=== PATIENT | female | born 1945 | race Two or more races ===

== ENCOUNTER 2019-12-18 19:20 | Inpatient (IN) | payer MEDICAID, MEDICARE ==
[~2019-12-18] VITALS: Ht 154.9 cm; Wt 70.7 kg
[2019-12-18] MEDS ORDERED: LEVEMIR (INSULIN DETEMIR) 1 UNITS/0.01ML SC SCH (21:00)
[2019-12-18] MEDS ORDERED: ACETAMINOPHEN TAB 650MG DOSE (2X325MG) PO PRN (22:00)
[2019-12-18 23:30] VITALS: BP 150/92
[2019-12-19] MEDS ORDERED: LEVE1INJ5 SUBQ (00:10)
[2019-12-19] MEDS ORDERED: METO1TAB87 PO (00:11)
[2019-12-19] MEDS ORDERED: ECOT81TA5 PO (00:11)
[2019-12-19] MEDS ORDERED: CYCL-707 PO (00:11)
[2019-12-19] MEDS ORDERED: VITA50005 PO (00:11)
[2019-12-19] MEDS ORDERED: LORA-622 PO (00:11)
[2019-12-19] MEDS ORDERED: PANT40TA29 PO (00:11)
[2019-12-19] MEDS ORDERED: NOVOINJ3 SUBQ (00:11)
[2019-12-19] MEDS ORDERED: MIRA3350 PO (00:11)
[2019-12-19] MEDS ORDERED: ACET-908 PO (00:11)
[2019-12-19] MEDS ORDERED: FURO20TA2 PO (00:11)
[2019-12-19] MEDS ORDERED: SULF1TAB93 PO (00:11)
[2019-12-19] MEDS ORDERED: ATOR40TA75 PO (00:11)
[2019-12-19] MEDS ORDERED: AMLO1TAB24 PO (00:11)
[2019-12-19 00:12] LABS: HEMATOCRIT 27.3 % (36.0-47.0); HEMOGLOBIN 8.7 g/dl (12.0-15.5); MEAN CORPUSCULAR HEMOGLOBIN 30.3 pg (27.0-33.0); MEAN CORPUSCULAR HGB CONC 31.9 g/dl (32.0-36.5); MEAN CORPUSCULAR VOLUME 95.1 fl (80.0-96.0); PLATELET COUNT, AUTOMATED 231 10^3/uL (150-450); RED BLOOD COUNT 2.87 10^6/uL (4.00-5.40); WHITE BLOOD COUNT 6.4 10^3/uL (4.0-10.0)
[2019-12-19] MEDS ORDERED: med rec comment (00:12)
[2019-12-19 00:21] LABS: OSMOLALITY SERUM 304 MOSM/KG (280-301)
[2019-12-19 00:48] LABS: ALBUMIN 3.1 GM/DL (3.2-5.2); ALT/SGPT 22 U/L (12-78); BILIRUBIN,TOTAL 0.3 MG/DL (0.2-1.0); BLOOD UREA NITROGEN 43 MG/DL (7-18); CALCIUM LEVEL 8.9 MG/DL (8.8-10.2); CARBON DIOXIDE LEVEL 22 MEQ/L (21-32); CHLORIDE LEVEL 108 MEQ/L (98-107); CK-MB VALUE MASS 2.3 NG/ML (<3.6); CPK CREATINE PHOSPHOKINASE 145 U/L (26-192); CREATININE FOR GFR 4.86 MG/DL (0.55-1.30); GLOMERULAR FILTRATION RATE 9.3 (>39); GLUCOSE, FASTING 178 MG/DL (70-100); MB/CK RELATIVE INDEX 1.59 (< OR =4); POTASSIUM SERUM 6.3 MEQ/L (3.5-5.1); SODIUM LEVEL 135 MEQ/L (136-145); TOTAL PROTEIN 7.9 GM/DL (6.4-8.2); TROPONIN I < 0.02 NG/ML (< 0.10)
[2019-12-19] MEDS ORDERED: CYCLOBENZAPRINE 10MG TABLET PO PRN (01:30)
[2019-12-19] MEDS ORDERED: NS 1,000 ML IV SCH (01:30)
[2019-12-19] MEDS ORDERED: GLUCAGON INJ 1MG VIAL SC PRN (02:00)
[2019-12-19] MEDS ORDERED: GLUCOSE 4GM CHEW TABLET PO PRN (02:00)
[2019-12-19] MEDS ORDERED: DEXTROSE 50% 50 ML SYRINGE IV PRN (02:00)
[2019-12-19] MEDS: METOPROLOL TART 25 MG TABLET PO SCH ×3 (02:25→22:13)
[2019-12-19] MEDS ORDERED: PATIROMER SORBITEX CALCIUM 8.4 GM POWDER PACKET (VELTASSA) PO ONE (02:45)
[2019-12-19 04:00] VITALS: BP 170/94
--- NOTE | 2019-12-19 04:45 | REPVR ---
PROCEDURE INFORMATION: Exam: CT Head Without Contrast Exam date and time: 12/19/2019 4:09 AM Age: 74 years old Clinical indication: Pain; Headache; Additional info: Freq. Falls TECHNIQUE: Imaging protocol: Computed tomography of the head without contrast. Radiation optimization: All CT scans at this facility use at least one of these dose optimization techniques: automated exposure control; mA and/or kV adjustment per patient size (includes targeted exams where dose is matched to clinical indication); or iterative reconstruction. COMPARISON: No relevant prior studies available. FINDINGS: Brain: Normal. No hemorrhage. Unremarkable white matter. No mass effect. Ventricles: Normal. No ventriculomegaly. Bones/joints: Unremarkable. No acute fracture. Sinuses: Visualized sinuses are unremarkable. No fluid levels. Mastoid air cells: Visualized mastoid air cells are well aerated. Soft tissues: Unremarkable. IMPRESSION: No acute intracranial abnormality. Electronically signed by: Fred Menard On 12/19/2019 04:44:41 AM
--- NOTE | 2019-12-19 04:45 | REPVR ---
PROCEDURE INFORMATION: Exam: CT Neck Without Contrast Exam date and time: 12/19/2019 4:09 AM Age: 74 years old Clinical indication: Neck pain; Additional info: Freq falls, pain left side of neck TECHNIQUE: Imaging protocol: Computed tomography images of the neck without contrast. Radiation optimization: All CT scans at this facility use at least one of these dose optimization techniques: automated exposure control; mA and/or kV adjustment per patient size (includes targeted exams where dose is matched to clinical indication); or iterative reconstruction. COMPARISON: No relevant prior studies available. FINDINGS: Limitations: Study is limited by the absence of contrast. Nasopharynx: Unremarkable. Dental: Dental caries and periodontal disease. Oropharynx: Unremarkable. No significant tonsillar enlargement. Hypopharynx: Unremarkable. Larynx: Unremarkable. Normal epiglottis. Retropharyngeal space: Unremarkable. Submandibular/Parotid glands: Normal. Glands are normal in size. Thyroid: Multiple hypodense thyroid nodules measuring up to 9 mm, follow-up is not necessary. Lymph nodes: Unremarkable. No lymphadenopathy. Trachea: Visualized trachea is unremarkable. Lungs: Unremarkable as visualized. Bones/joints: Straightening of the normal cervical lordotic curvature. Normal vertebral body heights and alignments. No fractures. Diffuse degenerative disc space loss with degenerative disc osteophyte complexes, facet arthropathy, and ligamentum flavum thickening causes up to mild to moderate spinal and foraminal stenosis, greatest at C4-C7. Soft tissues: Unremarkable. No significant soft tissue swelling. IMPRESSION: 1. No acute fracture/subluxation. No masses or adenopathy. 2. Multiple hypodense thyroid nodules measuring up to 9 mm, follow-up is not necessary. 3. Dental caries and periodontal disease. Recommend dental follow-up COMMENTS: Consistent with the [employer]'s Incidental Findings Committee white paper (J Am Jean Paul Radiol 2015): In patients aged 35 years and older with an incidental thyroid nodule equal to or greater than 1.[address], MRI or extrathyroidal US, further evaluation with dedicated thyroid US is recommended for patients with normal life expectancy and without comorbidities. For smaller nodules without suspicious features, no further evaluation or follow up is recommended. Electronically signed by: Fred Menard On 12/19/2019 04:44:22 AM
[2019-12-19 05:49] LABS: BASO % 0.6 % (0.0-1.0); EOS # 0.2 10^3/uL (0.0-0.5); EOS % 3.8 % (0.0-3.0); HEMATOCRIT 26.2 % (36.0-47.0); HEMOGLOBIN 8.4 g/dl (12.0-15.5); LYMPH # 1.6 10^3/uL (1.5-5.0); LYMPH % 25.9 % (24.0-44.0); MEAN CORPUSCULAR HEMOGLOBIN 30.4 pg (27.0-33.0); MEAN CORPUSCULAR HGB CONC 32.1 g/dl (32.0-36.5); MEAN CORPUSCULAR VOLUME 94.9 fl (80.0-96.0); MONO # 0.5 10^3/uL (0.0-0.8); MONO % 7.8 % (0.0-5.0); NEUTROPHILS # 3.9 10^3/uL (1.5-8.5); NEUTROPHILS % 61.6 % (36.0-66.0); PLATELET COUNT, AUTOMATED 229 10^3/uL (150-450); RED BLOOD COUNT 2.76 10^6/uL (4.00-5.40); WHITE BLOOD COUNT 6.3 10^3/uL (4.0-10.0)
[2019-12-19 06:07] LABS: CALCIUM LEVEL 8.8 MG/DL (8.8-10.2); CREATININE FOR GFR 4.75 MG/DL (0.55-1.30); GLOMERULAR FILTRATION RATE 9.5 (>39); MAGNESIUM LEVEL 1.7 MG/DL (1.8-2.4); POTASSIUM SERUM 6.3 MEQ/L (3.5-5.1)
--- NOTE | 2019-12-19 06:42 | REPVR ---
PROCEDURE INFORMATION: Exam: US Soft Tissue Head and Neck, Thyroid Exam date and time: 12/19/2019 6:23 AM Age: 74 years old Clinical indication: Abnormal findings; Abnormal radiologic study of neck; Additional info: Thyroid nodules TECHNIQUE: Imaging protocol: Real-time ultrasound scan of the neck with image documentation. Exam focused on the thyroid. COMPARISON: CT Neck without contrast 2019-12-19 04:05 FINDINGS: Right thyroid lobe: Enlarged 5.2 x 2.2 x 2.1 cm right thyroid lobe. Cystic areas in the right superior thyroid lobe, smaller measures 1 cm, and larger 1.3 cm. Left thyroid lobe: Multiple complex hypoechoic and cystic areas within the bilateral thyroid lobes. 4.3 x 2.2 x 2.8 cm mildly enlarged left thyroid lobe. Complex cystic 1 cm left superior thyroid nodule. Hypoechoic 2 cm left inferior thyroid lobe nodule. Small echogenic calcifications in the left inferior thyroid lobe. Isthmus: Complex cystic thyroid isthmus nodule measuring 1.9 cm. Thyroid isthmus is 17 mm thick. IMPRESSION: Multi nodular thyroid gland with multiple probably benign, likely colloid cysts. However a hypoechoic, partially solid appearing left inferior thyroid lobe nodule is noted, consider FNA guided biopsy, or correlate with priors . Electronically signed by: Fred Menard On 12/19/2019 06:41:20 AM
[2019-12-19 08:00] VITALS: BP 170/76
--- NOTE | 2019-12-19 08:29 | REP ---
Clinical: Hyperkaliemia . Comparison: None . Findings: The mediastinum and cardiac silhouette are stable and within normal limits for portable technique. The lung rosa are clear without acute consolidation, effusion, or pneumothorax. Skeletal structures are intact. Impression: No acute cardiopulmonary process appreciated. Electronically Signed by Harish Luis MD 12/19/2019 08:20 A
--- NOTE | 2019-12-19 09:04 | REP ---
Clinical: Left-sided neck pain. Technique: AP, lateral, flexion/extension, bilateral oblique, swimmers and open mouth views of the cervical spine. Findings: Alignment and lordosis is maintained. There is no evidence for acute fracture / compression injury or subluxation. No significant degenerative changes are appreciated. Oblique views demonstrate patent neural foramen. Open mouth view demonstrates normal C1-C2 articulation and odontoid process. Lateral and oblique views best demonstrate a curvilinear calcifications in the soft tissues superficial to the C3-4 spinous processes consistent with chronic calcification possibly related to old injury. Impression: Essentially, normal cervical spine series. Electronically Signed by Harish Luis MD 12/19/2019 08:56 A
[2019-12-19] MEDS: LORATADINE 10 MG TAB PO SCH (09:15)
[2019-12-19] MEDS: HEPARIN SOD (PORCINE) 5000UNITS/ML 1ML VIAL/SYRINGE SQ SCH ×2 (09:15→22:12)
[2019-12-19] MEDS: ASPIRIN 81 MG ENTERIC TAB PO SCH (09:16)
[2019-12-19] MEDS: PANTOPRAZOLE 40MG TAB (PROTONIX) PO SCH (09:16)
[2019-12-19] MEDS: ATORVASTATIN 20 MG TAB PO SCH (09:16)
[2019-12-19] MEDS: amLODIPine 5 MG TAB PO SCH (09:16)
[2019-12-19] MEDS: LEVEMIR (INSULIN DETEMIR) 1 UNITS/0.01ML SC SCH ×2 (09:17→21:00)
[2019-12-19] MEDS: HumaLOG INSULIN (NovoLOG) PER UNIT SC SCH ×4 (09:17→21:00)
--- NOTE | 2019-12-19 11:00 | ECGEPIP ---
[facility] Test Date: 2019-12-18 Pat Name: RAE HUERTA Department: Room: A5990-49 Gender: Female Lending Consultant: GIANA : 1945 Requested By: MASSIMO CAMPBELL Order Number: [id number] Reading MD: Fred Garcia Measurements Intervals [place] Rate: 78 P: -59 W[place]: 150 QRS: 29 QRSD: 73 T: 62 QT: 375 QTc: 427 Interpretive Statements SINUS RHYTHM Poor R wave progression. No prior ECG available for comparison at the time of interpretation. Electronically Signed on 12-19-2019 11:00:02 EDT by Fred Garcia
--- NOTE | 2019-12-19 11:28 | HPE ---
DATE OF ADMISSION: 12/18/2019 CHIEF COMPLAINT: Neck and headache. This is a 74-year-old female who was transferred from [facility]. She had been to the emergency room there with a complaint of a severe neck and severe headache. It went up the left side of her neck into her head. She was having episodes of falls due to dizziness. She had recently had her teeth extracted due to infection on the left side. She went to the emergency room and was assessed. Her initial blood sugar was noted to be low at 42. She was given orange juice and glucose. Blood pressure was in the 140s-150s. She was assessed and admitted observation status at [facility]. Her initial potassium was 6.1. Creatinine was 5.2. Blood urea nitrogen (BUN) was 45. The patient was given intravenous (IV) fluid. Repeat laboratories were done and showed worsening renal function. Her potassium was 6.3. Creatinine was 5.4. Repeat was 7.2. Decision was made to contact the hospitalist at [facility]. Dr. Jj, who accepted the patient for transfer to [facility] for hypokalemia, end-stage renal disease, uncontrolled diabetes, poorly controlled hypertension, to the progressive care unit (PCU) for further workup. The patient arrived via ambulance without complication. The patient will be admitted, placed on telemetry. ALLERGIES: CEFTIN. LEATHER WORKER: Dr. Leal. SOCIAL HISTORY: She is . She lives with her . Moved here from [facility] when she . She has sisters who still live in [place]. She has not seen them in quite some time. FAMILY HISTORY: She believes one sister has diabetes. PAST MEDICAL HISTORY: End-stage renal disease, hypertension, insulin-dependent diabetes type 2, history of cerebrovascular accident (CVA) in the past, neuropathy, gastroesophageal reflux disease (GERD), rheumatoid arthritis, chronic back pain, hypercholesterolemia. PAST SURGICAL HISTORY: Recent teeth extraction, tonsillectomy, hysterectomy, colonoscopy, carpal tunnel release. REVIEW OF SYSTEMS: Was difficult, as the patient has a language barrier. Assistance was obtained with the help of her daughter. Eleven-systems review was done and other than left-sided neck pain and radiating up into her head causing dizziness and off-balance, she had no other complaints. States the since taking antibiotics for her teeth, Augmentin and Bactrim, has had loose stools. PHYSICAL EXAMINATION: A 74-year-old obese female, in no acute distress. Height 61 inches, weight 70 kg, body mass index (BMI) 29.2. The patient was alert and oriented to person, place, and time. Pupils equal and react to light. Extraocular movements (EOMs) intact Cornea and sclerae clear. Conjunctivae normal. No facial asymmetry. Pharynx, tongue, and gums pink and moist. Tongue was midline. Buccal mucosa was slightly dry. There were numerous teeth missing in the upper and lower jaw. A loose incisor on the upper right. NECK: supple. Neck: Complained of pain when turning head to the right. Was slightly swollen on the left. No lymphadenopathy. No thyromegaly. No goiter. Carotids 2+ without bruit. CHEST: Clear to auscultation without wheeze or retraction. HEART: Regular. ABDOMEN: Benign. Bowel sounds positive. GENITOURINARY ()/RECTAL: Not done. EXTREMITIES: No clubbing, cyanosis, or edema. Peripheral pulses equal and palpable bilaterally. IMPRESSION AND PLAN: Admit. Will get complete metabolic panel (CMP), complete blood count (CBC), procalcitonin, lactic acid. Order CT spine of the neck and head. IV hydration. Will do a gastrointestinal (GI) panel. 1. End-stage renal disease. Consult Dr. Guzmán. Elevated BUN and creatinine. IV hydration. 2. Hyperkalemia. Expect improvement with hydration. Will continue to monitor. 3. Insulin-dependent diabetes type 2. Will continue Levemir. Fingerstick blood sugars with coverage as needed. Consistent-carbohydrate diet. 4. Hypertension. Continue amlodipine and metoprolol. 5. Headache and neck pain. Get a C spine CT and head CT. 6. Deep venous thrombosis (DVT) prophylaxis. hepatin The patient is a FULL CODE. MTDD
[2019-12-19] MEDS ORDERED: SLF 3 ML SYR IV PRN (11:30)
[2019-12-19 12:00] VITALS: BP 148/82
[2019-12-19] MEDS ORDERED: FUROSEMIDE 40MG/4ML VIAL (J1940) IV ONE (12:00)
--- NOTE | 2019-12-19 12:40 | IPNPDOC ---
Subjective Date Seen The patient was seen on 12/19/19. Subjective Chief Complaint/HPI Patient complains of left facial pain left ear pain and left sided neck pain which she says has been going on for 2 weeks and for this se had extraction of tooth 4 days ago. She was give antibiotics and pain meds int he past 2 weeks. Objective Physical Examination General Exam: Positive: Alert, Cooperative, No Acute Distress Eye Exam: Positive: PERRLA, Conjunctiva & lids normal, EOMI, Other Eye Symptoms (periorbital edma); Negative: Sclera icteric ENT Exam: Positive: Atraumatic, Mucous membr. moist/pink, Pharynx Normal Neck Exam: Positive: Supple, Other (tenderness on the eft side of the neck) Chest Exam: Positive: Clear to auscultation, Normal air movement Heart Exam: Positive: Rate Normal, Regular Rhythm, Normal S1, Normal S2; Negative: Murmurs, Rubs Telemetry: Positive: No significant arrhythmia Abdomen Exam: Positive: Normal bowel sounds, Soft; Negative: Tenderness, Hepatospenomegaly Extremity Exam: Positive: Edema (trace); Negative: Clubbing, Cyanosis Skin Exam: Positive: Nl turgor and temperature; Negative: Rash, Breakdown Assessment /Plan Assessment 74-year-old female who was transferred from [facility]. She had been to the emergency room there with a complaint of a severe neck pain and severe headache. It went up the left side of her neck into her head. She was having episodes of falls due to dizziness. She had recently had her teeth extracted due to infection on the left side. IN Outside hospital her initial blood sugar was noted to be low at 42 which was corrected. She was assessed and admitted observation status at [facility]. Her initial potassium was 6.1. Creatinine was 5.2. Blood urea nitrogen (BUN) was 45. The patient was given intravenous (IV) fluid. Repeat laboratories were done and showed worsening renal function. Her potassium was 6.3. Creatinine was 5.4. Repeat was 7.2 so was transferred here for Shannon on CKD with hyperkalemia. SHANNON on CKD 4 Baseline creatinine 3 to 4 Possibly worsened due to bactrim Nephrology consulted. Hyperkalemia. given patiromir without much improvement;will give IVF and Lasix. will get kayexalate. Insulin-dependent diabetes type 2. Levemir. Fingerstick blood sugars with coverage as needed. Consistent- carbohydrate diet. Hypertension. amlodipine and metoprolol. Left Headache and neck pain. Due to dental carries and periorbital disease Arlee, clindamycin. if pain does not improve consider consulting oral surgeon. C spine CT negative Neck CT shows multi nodular thyroid. Multinodular thyroid with one abnormal looking nodule Thyroid US shows: Multi nodular thyroid gland with multiple probably benign, likely colloid cysts. However a hypoechoic, partially solid appearing left inferior thyroid lobe nodule is noted. FNA guided biopsy as outpatient. Hyperlipidemia statin. Deep venous thrombosis (DVT) prophylaxis. Heparin. Plan/VTE VTE Prophylaxis Ordered?: Yes VS, I&O, 24H, Fishbone Vital Signs/I&O Vital Signs Date Time Temp Pulse Resp B/P (MAP) Pulse Ox O2 Delivery O2 Flow Rate FiO2 12/19/19 09:16 75 170/76 12/19/19 08:00 97.5 18 99 12/19/19 04:00 Room Air I&O- Last 24 Hours up to 6 AM 12/19/19 06:00 Intake Total 150 ml Output Total 1200 ml Balance -1050 ml Laboratory Data 24H LABS Laboratory Tests 2 12/18/19 23:54: Nucleated Red Blood Cells % (auto) 0.0, Anion Gap 5L, Glomerular Filtration Rate 9.3L, Osmolality 304H, Lactic Acid Level 0.9, Calcium Level 8.9, Total Bilirubin 0.3, Aspartate Amino Transf (AST/SGOT) 29, Alanine Aminotransferase (ALT/SGPT) 22, Alkaline Phosphatase 73, Total Creatine Kinase 145, Creatine Kinase MB 2.3, Creatine Kinase MB Relative Index 1.59, Troponin I < 0.02, Total Protein 7.9, Albumin 3.1L, Albumin/Globulin Ratio 0.6L 12/19/19 01:44: Bedside Glucose (Misc Panel) 172H 12/19/19 04:25: Bedside Glucose (Misc Panel) 135H 12/19/19 05:30: Nucleated Red Blood Cells % (auto) 0.0, Anion Gap 2L, Glomerular Filtration Rate 9.5L, Calcium Level 8.8, Immature Granulocyte % (Auto) 0.3, Neutrophils (%) (Auto) 61.6, Lymphocytes (%) (Auto) 25.9, Monocytes (%) (Auto) 7.8H, Eosinophils (%) (Auto) 3.8H, Basophils (%) (Auto) 0.6, Neutrophils # (Auto) 3.9, Lymphocytes # (Auto) 1.6, Monocytes # (Auto) 0.5, Eosinophils # (Auto) 0.2, Basophils # (Auto) 0.0, Magnesium Level 1.7L CBC/BMP Laboratory Tests 12/18/19 23:54 12/19/19 05:30 JESSIE PICKARD MD Dec 19, 2019 12:40
[2019-12-19] MEDS ORDERED: NORCO, ANEXSIA 5/325MG TABLET (HYDROcodone/ACETAMINOPHEN) PO PRN (12:45)
[2019-12-19] MEDS: MAGNESIUM OXIDE 400 MG TAB (MAG-OX) PO SCH ×2 (12:47→22:13)
[2019-12-19 13:06] LABS: OSMOLALITY URINE 283 MOSM/KG (500-800)
[2019-12-19 13:48] LABS: CREATININE,RANDOM URINE 22.3 MG/DL; SODIUM,RANDOM URINE 96 MEQ/L
[2019-12-19] MEDS: SLF 3 ML SYR IV SCH ×2 (14:00→22:05)
[2019-12-19] MEDS ORDERED: SOD POLYSTYRENE SULFONATE SUSP 15 GM/60 ML UD PO ONE (14:00)
[2019-12-19 14:51] LABS: BLOOD UREA NITROGEN 42 MG/DL (7-18); CALCIUM LEVEL 9.5 MG/DL (8.8-10.2); CARBON DIOXIDE LEVEL 18 MEQ/L (21-32); CHLORIDE LEVEL 108 MEQ/L (98-107); CREATININE FOR GFR 4.63 MG/DL (0.55-1.30); FERRITIN 84 NG/ML (8-252); GLOMERULAR FILTRATION RATE 9.8 (>39); GLUCOSE, FASTING 153 MG/DL (70-100); IRON (FE) 106 UG/DL (50-170); PERCENT SATURATION 38.8 % (13.2-45.0); PHOSPHORUS LEVEL 5.5 MG/DL (2.5-4.9); POTASSIUM SERUM 6.3 MEQ/L (3.5-5.1); SODIUM LEVEL 136 MEQ/L (136-145); TOTAL IRON BINDING CAPACITY 273 UG/DL (250-450)
[2019-12-19 15:00] LABS: HEPATITIS B SURFACE ANTIBODY POSITIVE (POSITIVE); PTH INTACT 250.3 PG/ML (18.5-88.0)
[2019-12-19 15:11] LABS: HEPATITIS B SURFACE ANTIGEN NEGATIVE (NEGATIVE)
[2019-12-19 15:39] LABS: HEPATITIS B CORE ANTIBODY IGM NEGATIVE (NEGATIVE); HEPATITIS C VIRUS ABY INDEX 0.1 INDEX (<0.8)
--- NOTE | 2019-12-19 15:55 | REP ---
Clinical: Acute renal failure. Technique: Real time mcallister scale ultrasound examination using curved array transducer. Findings: Kidneys appear mildly hyperechoic suggesting chronic medical renal disease. No hydronephrosis, nephrolithiasis, cystic or renal mass lesion appreciated. Right kidney measures 9.9 x 4.7 x 5.2 cm. Left kidney measures 9.5 x 3.8 x 4.6 cm. Bladder is unremarkable. Impression: Chronic medical renal disease. No hydronephrosis. Electronically Signed by Harish Luis MD 12/19/2019 03:47 P
[2019-12-19 16:00] VITALS: BP 140/80
[2019-12-19] MEDS: CLINDAMYCIN 600 MG in IV 1 EA IV SCH ×2 (17:06→22:13)
[2019-12-19] MEDS: (RENVELA) SEVELAMER **CARBONate** 800 MG TAB PO SCH (18:00)
[2019-12-19] MEDS: BICITRA 30ML SOLN UDC PO SCH (18:15)
--- NOTE | 2019-12-19 18:43 | CR ---
DATE OF CONSULTATION: 12/19/2019 REQUESTING PHYSICIAN: Dr. Rosmery Negro CONSULTING PHYSICIAN: Dr. Guzmán REASON FOR CONSULTATION: Management of acute renal failure and hyperkalemia. CHIEF COMPLAINT: The patient was sent from [facility] because of hyperkalemia and renal failure. HISTORY OF PRESENT ILLNESS: Nicanor Greenberg is a 74-year-old female with a past medical history of insulin-dependent diabetes, hypertension, chronic kidney disease, stage IV or early stage V, who was told by her attendance officer, Dr. Leal at [facility], that she will need a fistula and probably need to start dialysis in the near future. She had a wound in the left foot, and for that she was being given Bactrim, so she presented to the [facility] yesterday with severe left-sided neck pain and headache. The patient was found to be hypertensive and hyperkalemic with a potassium of 6.3. Her creatinine was 5.4. [facility] transferred the patient to [facility] for further management of renal failure. The patient was admitted under the hospitalist service last night. She was given intravenous (IV) fluid hydration overnight. She was also given Kayexalate in the emergency room yesterday and a dose of Veltassa today morning. Despite that, her potassium level stayed high. Nephrology service was called for further help in the management of this patient. I saw and evaluated the patient today morning at the bedside. She was able to provide me with a history. She was not in apparent distress when I saw. PAST MEDICAL HISTORY: 1. Chronic kidney disease, stage IV to early stage V. Baseline creatinine is not known. I would have to get the records. 2. She has history of hypertension. 3. Diabetes mellitus type 2, insulin dependent. 4. History of cerebrovascular accident (CVA) in the past. 5. Gastroesophageal reflux disease. 6. Rheumatoid arthritis. 7. Chronic back pain. 8. Hyperlipidemia. PAST SURGICAL HISTORY: 1. History of dental extraction. 2. History of tonsillectomy in the past. 3. Hysterectomy. 4. Colonoscopy. 5. Carpal tunnel release surgery in the past. ALLERGIES: She is allergic to CEFUROXIME. FAMILY HISTORY: No significant family history of end-stage renal disease requiring hemodialysis. SOCIAL HISTORY: The patient lives with her . She denies any smoking, illicit drug abuse, alcohol abuse. REVIEW OF SYSTEMS: CONSTITUTIONAL: Patient denies any fevers or chills. EYES: She denies any blurry vision or double vision. ENT: She reports left-sided headache. CARDIOVASCULAR: She denies any chest pain or chest pain or palpitations. RESPIRATORY: She denies any shortness of breath. GASTROINTESTINAL: She denies any nausea, vomiting. GENITOURINARY: She denies any dysuria or hematuria. MUSCULOSKELETAL: She denies any muscle aches and pains. She does report ulcer in the left foot. CENTRAL NERVOUS SYSTEM: She reports history of stroke in the past, but she denies any weakness at this time. SKIN: She denies any rashes or ulcers. PSYCHIATRIC: She denies any depression or anxiety. ENDOCRINE: She reports insulin-dependent diabetes. HEMATOLOGIC/ONCOLOGIC: She denies any easy bleeding or bruising. All other review of systems is negative. PHYSICAL EXAMINATION: GENERAL: The patient is awake, alert, oriented times three, lying in bed in no apparent distress. VITAL SIGNS: Temperature is 97.5 degrees Fahrenheit, blood pressure is 140/80, pulse is 76, respiratory rate of 18, saturating 97% on room air. HEAD AND NECK: Extraocular muscles intact. Pupils equally round and reactive to light. Mucous membranes are moist. Neck is supple. There is no significant jugular venous distention (JVD) . CARDIOVASCULAR: S1, S2, regular rate. No edema of the bilateral lower extremities. RESPIRATORY: Chest is clear to auscultation bilaterally. Bilateral equal air entry. No rales or rhonchi. ABDOMEN: Soft. Positive bowel sounds. Nontender. No organomegaly. MUSCULOSKELETAL: No clubbing or cyanosis. Pulses are 2+. She has a small ulcer in the left 3rd toe covered with a dressing. CENTRAL NERVOUS SYSTEM: No focal deficit. Power is 5/5 in all extremities. LABORATORY REVIEW: CBC showed WBC 6.3, hemoglobin 8.4, platelets of 229. Urinalysis done showed 2+ protein, 1+, glucose. BMP done today morning showed sodium 136, potassium 6.3, chloride 108, bicarbonate 18, BUN 42, creatinine is 4.6, calcium 9.5, phosphorus 5.5. Iron 106, TIBC 273, transferrin saturation 38.8, ferritin is 84. PTH is 250. IMAGING STUDIES: A renal ultrasound was done, which showed medical renal disease. X-ray of the cervical spine was done, which showed no acute pathology. Thyroid ultrasound was done, which showed multinodular thyroid gland with multiple colloid cysts. Fine-needle aspiration (FNA) guided biopsy was recommended. CT of the head was done, which showed no acute intracranial pathology. CT of the neck was done, which showed no acute fractures or subluxation. Multiple hypodense thyroid nodules. Dental caries and periodontal disease. A chest x-ray was done, which showed no acute cardiopulmonary process. CURRENT INPATIENT MEDICATIONS: The patient's medications include: - clindamycin 600 mg intravenous (IV) every 6 hours - She was getting IV fluid hydration, which was stopped. - Tylenol as needed for pain - amlodipine 5 mg by mouth daily - aspirin 81 mg by mouth daily - Lipitor 40 mg by mouth daily. - I have ordered her Bicitra 30 mL by mouth twice a day - Flexeril 10 mg by mouth three times a day as needed for muscle spasms - She was also given Lasix 40 mg IV times one dose at noontime. - She is on heparin subcutaneous. - insulin Levemir 35 units subcutaneous twice a day - insulin Lispro sliding scale - Claritin 10 mg by mouth daily - magnesium oxide 400 mg by mouth twice a day - metoprolol tartrate 50 mg by mouth twice a day - Protonix 40 mg by mouth daily - She was given a dose of Veltassa 8.4 grams by mouth times one dose. - I have started her on Renvela 800 mg by mouth with meals. - I ordered another dose of Kayexalate, which was given at 2 p.m. today, 30 grams. ASSESSMENT: A 74-year-old female with a acute kidney injury superimposed on chronic kidney disease, history of insulin-dependent diabetes, hypertension, hyperkalemia, metabolic acidosis, and dental caries. PLAN: 1. Acute kidney injury superimposed on chronic kidney disease. Most likely it was exacerbated by use of Bactrim as outpatient. At this point, since GFR is less than 10, I will try to manage her hyperkalemia and metabolic acidosis with medications; however, if her renal function and hyperkalemia do not show any signs of improvement, then patient will need to get tunneled dialysis catheter for initiation of hemodialysis. 2. Hyperkalemia. It is secondary to renal failure. The patient was already given a dose of Kayexalate yesterday. I have ordered another dose of Kayexalate to be given today in the afternoon. Repeat basic metabolic panel (BMP) at 8 o'clock tonight. 3. Metabolic acidosis. It is secondary to worsening renal failure. Bicarbonate level is 18. I have started the patient on Bicitra 30 mL by mouth twice a day. 4. Anemia and end-stage renal disease. Iron levels are adequate. If I start the patient on dialysis tomorrow, she will be started on Aranesp injections. No need of blood transfusion at this time. 5. Secondary hyperparathyroidism. Parathyroid hormone (PTH) level is 250, which is adequate for renal failure. No need of calcitriol administration at this time. 6. Chronic kidney disease and mineral bone disease. Phosphorus level is 5.5, which is high. I have started the patient on Renvela 800 mg by mouth three times a day with meals. 7. Diabetes mellitus, type 2. Okay to continue current dose of Levemir and insulin sliding scale. Avoid of metformin in this patient. 8. Hypertension with end-stage renal disease. I have stopped the intravenous (IV) fluids. Patient is already on amlodipine 5 mg by mouth daily. She was also given a dose of Lasix today morning, which will help with the hypertension and hyperkalemia at the same time. Continue current dose of metoprolol tartrate 50 mg by mouth twice a day. 9. Dental caries. The patient has been started on clindamycin IV. Dose is adequate at this time. Thank you for involving me in the care of this patient. I shall be happy to follow the patient along with you tomorrow morning.
[2019-12-19 20:00] VITALS: BP 176/86
[2019-12-19 21:48] LABS: CALCIUM LEVEL 8.8 MG/DL (8.8-10.2); CREATININE FOR GFR 4.66 MG/DL (0.55-1.30); GLOMERULAR FILTRATION RATE 9.7 (>39); POTASSIUM SERUM 6.3 MEQ/L (3.5-5.1)
--- NOTE | 2019-12-19 23:20 | ECHO ---
DATE OF PROCEDURE: 12/19/2019 REFERRING PHYSICIAN: Dr. Edel Waterman INDICATION: Abnormal ECG. HEIGHT: 154 cm WEIGHT: 70 kg 2D MEASUREMENTS: Ventricular septum: 1.48 cm Posterior wall: 1.47 cm Left ventricle diastole: 3.6 cm Left atrium: 3.1 cm Aortic root: 2.6 cm Aortic annulus: 1.6 cm DOPPLER MEASUREMENTS: Trace aortic regurgitation. No aortic stenosis. Aortic valve velocity: 148 cm/s LVOT velocity: 96.0 cm/s LVOT VTI: 18.3 cm No mitral regurgitation. Mitral E velocity: 56.6 cm/s Mitral A velocity: 80.6 cm/s Deceleration time: 222 ms (mitral) Very mild tricuspid regurgitation. Estimated right ventricle systolic pressure: 34-39 mmHg assuming a right atrial pressure of 5-10 mmHg. Mild pulmonic regurgitation. Pulmonary acceleration time: 129 ms MITRAL ANNULAR TISSUE DOPPLER: E prime septal: 4.4 cm/s E prime lateral: 5.2 cm/s DESCRIPTION: Rhythm was sinus. Image quality was good. No pericardial effusion. This was a 2D, M-mode, color flow Doppler and pulse wave Doppler examination and included mitral annular tissue Doppler. CONCLUSIONS: 1. Mild concentric left ventricle hypertrophy. Normal regional left ventricular (LV) wall motion and wall thickening. Normal LV systolic function. Left ventricular ejection fraction (LVEF) 65% by visual estimate. Grade 1 LV diastolic dysfunction (impaired relaxation filling pattern). 2. Suggestive of mild elevation of estimated right ventricle systolic pressure. Normal right ventricle size and systolic function. 3. Mild aortic valve sclerosis of a 3-cusp aortic valve. Trace aortic regurgitation. 4. Otherwise normal appearing echocardiogram Doppler findings.
[2019-12-20] VITALS: BP 144/67
[2019-12-20] MEDS ORDERED: SOD POLYSTYRENE SULFONATE SUSP 15 GM/60 ML UD PO ONE
[2019-12-20 04:00] VITALS: BP 130/60
[2019-12-20] MEDS: CLINDAMYCIN 600 MG in IV 1 EA IV SCH ×4 (04:05→23:20)
[2019-12-20 05:43] LABS: BASO % 0.5 % (0.0-1.0); EOS # 0.3 10^3/uL (0.0-0.5); HEMOGLOBIN 7.9 g/dl (12.0-15.5); LYMPH # 2.2 10^3/uL (1.5-5.0); LYMPH % 38.2 % (24.0-44.0); MEAN CORPUSCULAR HEMOGLOBIN 30.3 pg (27.0-33.0); MEAN CORPUSCULAR HGB CONC 31.6 g/dl (32.0-36.5); MEAN CORPUSCULAR VOLUME 95.8 fl (80.0-96.0); MONO # 0.5 10^3/uL (0.0-0.8); MONO % 8.3 % (0.0-5.0); NEUTROPHILS # 2.8 10^3/uL (1.5-8.5); NEUTROPHILS % 47.7 % (36.0-66.0); PLATELET COUNT, AUTOMATED 201 10^3/uL (150-450); RED BLOOD COUNT 2.61 10^6/uL (4.00-5.40); WHITE BLOOD COUNT 5.8 10^3/uL (4.0-10.0)
[2019-12-20] MEDS: SLF 3 ML SYR IV SCH ×3 (05:57→22:16)
[2019-12-20 06:04] LABS: ALBUMIN 2.7 GM/DL (3.2-5.2); CALCIUM LEVEL 8.5 MG/DL (8.8-10.2); CREATININE FOR GFR 4.62 MG/DL (0.55-1.30); GLOMERULAR FILTRATION RATE 9.8 (>39); MAGNESIUM LEVEL 1.5 MG/DL (1.8-2.4); PHOSPHORUS LEVEL 5.7 MG/DL (2.5-4.9); POTASSIUM SERUM 5.1 MEQ/L (3.5-5.1)
[2019-12-20] MEDS: HumaLOG INSULIN (NovoLOG) PER UNIT SC SCH ×4 (07:30→21:00)
[2019-12-20 08:00] VITALS: BP 152/90
[2019-12-20] MEDS: MAGNESIUM OXIDE 400 MG TAB (MAG-OX) PO SCH ×2 (08:01→22:14)
[2019-12-20] MEDS: BICITRA 30ML SOLN UDC PO SCH ×2 (08:01→22:13)
[2019-12-20] MEDS: METOPROLOL TART 25 MG TABLET PO SCH ×2 (08:01→22:14)
[2019-12-20] MEDS: (RENVELA) SEVELAMER **CARBONate** 800 MG TAB PO SCH ×3 (08:01→17:07)
[2019-12-20] MEDS: PANTOPRAZOLE 40MG TAB (PROTONIX) PO SCH (08:01)
[2019-12-20] MEDS: LORATADINE 10 MG TAB PO SCH (08:02)
[2019-12-20] MEDS: amLODIPine 5 MG TAB PO SCH (08:02)
[2019-12-20] MEDS: ATORVASTATIN 20 MG TAB PO SCH (08:02)
[2019-12-20] MEDS: ASPIRIN 81 MG ENTERIC TAB PO SCH (08:02)
[2019-12-20] MEDS: LEVEMIR (INSULIN DETEMIR) 1 UNITS/0.01ML SC SCH ×2 (08:03→22:15)
[2019-12-20] MEDS: HEPARIN SOD (PORCINE) 5000UNITS/ML 1ML VIAL/SYRINGE SQ SCH ×2 (08:03→22:15)
[2019-12-20] MEDS ORDERED: DARBEPOETIN 200MCG/0.4ML *NON-DIALYSIS* SYRINGE (J0881 PER 1MCG) SC SCH (09:00)
[2019-12-20 11:25] VITALS: BP 166/84
--- NOTE | 2019-12-20 14:46 | IPNPDOC ---
Text Note Date of Service The patient was seen on 12/20/19. NOTE Subjective: Feels well today. Denies CP/SOB/palpitations. No tooth pain. No N/V/abd pain. Objective: Vitals: (see below) General: No acute distress, laying comfortably in bed. HEENT: Moist mucous membranes. No tooth pain. No tooth abscess/swelling noted. Neck: No JVD or lymphadenopathy Cardiac: RRR, No murmurs Pulm: Clear to auscultation b/l. No wheezing, rhonchi Abd: NT/ND + BS Ext: No edema or cyanosis Labs (see below) Assessment/Plan 1.APRIL on CKD 4. ? 2/2 bactrim. Cr. improving. Nephro on board 2. Hyperkalemia -improving. APpreciate nephro input. s/p patiromir, IVF/Lasix, s/p kayexalate 3. IDDM - cont levemir/SSI 4. HTN controlled 5. Dental caries - Tooth pain improved. cont Clinda. F/u with dentist outpt. 6. CT neck with multinodular goiter; to be followed by PCP/possible endocrine referral by PCP. 7. HLD on statin DVT prophy: Hep SQ VS,Fishbone, I+O VS, Fishbone, I+O Laboratory Tests 12/19/19 21:06 12/20/19 05:13 Vital Signs Date Time Temp Pulse Resp B/P (MAP) Pulse Ox O2 Delivery O2 Flow Rate FiO2 12/20/19 11:25 97.4 70 18 166/84 (111) 98 Room Air I&O- Last 24 Hours up to 6 AM 12/20/19 06:00 Intake Total 1130 ml Output Total 800 ml Balance 330 ml JOSE SANDOVAL MD Dec 20, 2019 14:45
[2019-12-20 16:00] VITALS: BP 150/80
[2019-12-20 20:00] VITALS: BP_SYST 150; BP_SYST 162; BP_DIAS 67; BP_DIAS 70
[2019-12-20] MEDS: PATIROMER SORBITEX CALCIUM 8.4 GM POWDER PACKET (VELTASSA) PO SCH (23:20)
[2019-12-21] VITALS: BP 152/67
[2019-12-21 04:00] VITALS: BP 150/68
[2019-12-21] MEDS: CLINDAMYCIN 600 MG in IV 1 EA IV SCH ×4 (04:42→23:00)
[2019-12-21] MEDS: SLF 3 ML SYR IV SCH ×3 (04:42→21:04)
[2019-12-21 06:02] LABS: BASO % 0.6 % (0.0-1.0); EOS # 0.3 10^3/uL (0.0-0.5); EOS % 4.3 % (0.0-3.0); HEMATOCRIT 25.5 % (36.0-47.0); HEMOGLOBIN 8.1 g/dl (12.0-15.5); LYMPH # 2.1 10^3/uL (1.5-5.0); LYMPH % 33.3 % (24.0-44.0); MEAN CORPUSCULAR HEMOGLOBIN 30.3 pg (27.0-33.0); MEAN CORPUSCULAR HGB CONC 31.8 g/dl (32.0-36.5); MEAN CORPUSCULAR VOLUME 95.5 fl (80.0-96.0); MONO # 0.6 10^3/uL (0.0-0.8); MONO % 9.6 % (0.0-5.0); NEUTROPHILS # 3.3 10^3/uL (1.5-8.5); NEUTROPHILS % 51.7 % (36.0-66.0); PLATELET COUNT, AUTOMATED 204 10^3/uL (150-450); RED BLOOD COUNT 2.67 10^6/uL (4.00-5.40); WHITE BLOOD COUNT 6.3 10^3/uL (4.0-10.0)
[2019-12-21 06:25] LABS: CALCIUM LEVEL 8.2 MG/DL (8.8-10.2); CREATININE FOR GFR 4.7 MG/DL (0.55-1.30); GLOMERULAR FILTRATION RATE 9.6 (>39); MAGNESIUM LEVEL 1.6 MG/DL (1.8-2.4); POTASSIUM SERUM 4.8 MEQ/L (3.5-5.1)
[2019-12-21 08:00] VITALS: BP 151/96
[2019-12-21] MEDS: BICITRA 30ML SOLN UDC PO SCH (08:10)
[2019-12-21] MEDS: LEVEMIR (INSULIN DETEMIR) 1 UNITS/0.01ML SC SCH ×2 (08:11→21:03)
[2019-12-21] MEDS: HumaLOG INSULIN (NovoLOG) PER UNIT SC SCH ×4 (08:11→20:30)
[2019-12-21] MEDS: HEPARIN SOD (PORCINE) 5000UNITS/ML 1ML VIAL/SYRINGE SQ SCH ×2 (08:13→21:04)
[2019-12-21] MEDS: (RENVELA) SEVELAMER **CARBONate** 800 MG TAB PO SCH ×3 (08:13→17:41)
[2019-12-21] MEDS: METOPROLOL TART 25 MG TABLET PO SCH ×2 (08:14→21:03)
[2019-12-21] MEDS: MAGNESIUM OXIDE 400 MG TAB (MAG-OX) PO SCH ×2 (08:14→21:03)
[2019-12-21] MEDS: ATORVASTATIN 20 MG TAB PO SCH (08:14)
[2019-12-21] MEDS: ASPIRIN 81 MG ENTERIC TAB PO SCH (08:14)
[2019-12-21] MEDS: PANTOPRAZOLE 40MG TAB (PROTONIX) PO SCH (08:15)
[2019-12-21] MEDS: amLODIPine 5 MG TAB PO SCH (08:15)
[2019-12-21] MEDS: LORATADINE 10 MG TAB PO SCH (08:15)
--- NOTE | 2019-12-21 08:39 | IPN ---
DATE: 12/20/2019 SUBJECTIVE The patient was seen and examined at the bedside today morning. She was afebrile and hemodynamically stable. She was given an extra dose of Kayexalate yesterday. Her hyperkalemia has improved, her potassium was 5.1 today. However, there is no significant improvement in the renal function. She was started on IV clindamycin yesterday for dental caries and pain in the left side of the mouth. She denies any other active complaints at this time. OBJECTIVE Vital signs: Temperature is 97.4 degrees Fahrenheit, blood pressure 166/84, pulse is 70, respiratory of 18, saturating 98% on room air. Intake and output: Urine output recorded is at 1200 mL yesterday, 2200 mL so far today since overnight. Weight in the bed scale is 68.8 kg. PHYSICAL EXAMINATION General: The patient is awake, alert, oriented x3, laying in bed. No apparent distress. Head and neck exam: Extraocular muscles intact. Pupils equally round and reactive to light. Mucous membranes are moist. Oral examination was done. The patient has multiple dental caries and multiple fractured teeth with their retained infected fluids in the mouth. Neck: Supple. There is mildly elevated JVD. Cardiovascular: S1, S2, regular rate. No edema of the bilateral lower extremities. Respiratory: Chest is clear to auscultation bilaterally. Bilateral equal air entry. No rales or rhonchi. Abdomen: Soft, positive bowel sounds. Nontender. No organomegaly. Musculoskeletal: No clubbing or cyanosis. Pulses are 2+. SHEARER OPERATOR: No focal deficit. Power is 5/5 in all extremities. LABORATORY REVIEW: CBC showed WBC 5.8, hemoglobin 7.9, platelets are at 201. BMP showed sodium 141, potassium 5.1, chloride 109, bicarb 24, BUN 43, creatinine is 4.6, calcium 8.5, phosphorus 5.7, magnesium is 1.5, albumin 2.7. CURRENT INPATIENT MEDICATIONS: The patient's medications were all reviewed by myself. She continues to be on IV clindamycin. I have started her on Aranesp 200 mcg subcu once a week. I have also started her on VELTASSA 0.4 grams n.p.o. daily. No other significant change in the medications today as compared with yesterday. ASSESSMENT/PLAN 1. Acute renal failure superimposed on chronic kidney disease. The patient has progressed to end-stage renal disease. However, she has no overt signs or symptoms of uremia. Volume status is optimal. Acid base is within the acceptable range. Hyperkalemia has improved with Kayexalate. She lives very far away from two dialysis centers including [facility] in [place] and [facility] [place]. She is very reluctant to start hemodialysis because she lives with her , and she feels like she will not be able to drive to the hemodialysis center. I also discussed the peritoneal dialysis with her, and she is also reluctant to start peritoneal dialysis. She wants me to discuss this with her and her daughter. I called her daughter at number [phone] and I was unable to reach her. I feel like we need to take care of the social issues first before the patient is started on dialysis and this can be done as outpatient as well. 2. Hyperkalemia. It has improved with Kayexalate administration. I have started the patient on daily VELTASSA 8.4 grams p.o. daily. 3. Metabolic acidosis. It has responded well to Bicitra administration. 4. Anemia and end-stage renal disease. Iron Levels are adequate. The patient has been started on Aranesp 200 mcg once a week, first dose today. 5. Secondary hyperparathyroidism. PTH level is 250, which is optimal for end-stage renal disease. I am not starting calcitriol at this time. 6. Chronic kidney disease and mineral bone disease. The patient has been started on Renvela to help improve the phosphorus level. 7. Diabetes mellitus type 2. Continue insulin Levemir and sliding scale. 8. Hypertension with end-stage renal disease. Continue current dose of amlodipine and metoprolol. 9. Dental caries. The patient is currently on clindamycin, dose is adequate. 10. Disposition. If the patient's electrolyte and acid-base status stays within the acceptable range, I would do not see any compelling need to start the patient immediately on hemodialysis. This will need to be discussed with the family members, and she needs to decide about the mode of dialysis before she is started and it can be done as outpatient as well. MTDD
[2019-12-21 12:00] VITALS: BP 139/64
[2019-12-21] MEDS: PATIROMER SORBITEX CALCIUM 8.4 GM POWDER PACKET (VELTASSA) PO SCH (12:28)
[2019-12-21] MEDS ORDERED: SODI15SS PO (13:44)
[2019-12-21] MEDS ORDERED: VELT1POW PO (13:44)
[2019-12-21 16:00] VITALS: BP 142/72
--- NOTE | 2019-12-21 16:04 | IPNPDOC ---
Text Note Date of Service The patient was seen on 12/21/19. NOTE Subjective: Feels well today. No tooth pain. Denies CP/SOB/palpitations. No N /V/abd pain. No overnight changes. Objective: Vitals: (see below) General: No acute distress, laying comfortably in bed. HEENT: Moist mucous membranes. No tooth pain. No tooth abscess/swelling noted. Neck: No JVD or lymphadenopathy Cardiac: RRR, No murmurs Pulm: Clear to auscultation b/l. No wheezing, rhonchi Abd: NT/ND + BS Ext: No edema or cyanosis Labs (see below) Assessment/Plan 1.APRIL on CKD 4. ? 2/2 bactrim. Cr. improving. Nephro on board 2. Hyperkalemia -improving. APpreciate nephro input. s/p patiromir, IVF/Lasix, s/p kayexalate. Discussed with CM and Dr. Guzmán. Plan to d/c tomorrow as Kayexalate is out of stock at her pharamcy today. Recc to continue with kayexalate 15mg po Twice a week per Dr. Guzmán. 3. IDDM - cont levemir/SSI 4. HTN controlled 5. Dental caries - Tooth pain improved. cont Clinda. F/u with dentist outpt. 6. CT neck with multinodular goiter; to be followed by PCP/possible endocrine referral by PCP. 7. HLD on statin DVT prophy: Hep SQ Likely for d/c in 24 hr as long as pt is able to obtain Kayexalate. VS,Fishbone, I+O VS, Fishbone, I+O Laboratory Tests 12/21/19 05:19 Vital Signs Date Time Temp Pulse Resp B/P (MAP) Pulse Ox O2 Delivery O2 Flow Rate FiO2 12/21/19 12:00 97.1 74 22 139/64 (89) 100 Room Air I&O- Last 24 Hours up to 6 AM 12/21/19 06:00 Intake Total 1760 ml Output Total 2800 ml Balance -1040 ml JOSE SANDOVAL MD Dec 21, 2019 16:04
[2019-12-21 20:00] VITALS: BP 136/68
--- NOTE | 2019-12-21 22:49 | IPNPDOC ---
Date Seen The patient was seen on 12/21/19. Progress Note SUBJECTIVE: Nicanor was seen and examined this morning by the nephrology service while lying upright in bed. She reports improvement in her oral and tooth pain from yesterday is currently on day #3 of clindamycin. She continues to make a good amount of urine with 2.2 L voided through the night overnight and 600 mL since midnight to this morning. While she is progressed end-stage renal disease. She continues to show no signs of uremia nor have any significant acid-base disturbances at this time. Her serum potassium level improved the second consecutive day today and was measured at 4.8 this morning. We have tried twice to phone the patient's daughter to inquire about patient's home arrangements and possibility to pursue peritoneal dialysis versus hemodialysis when she is discharged. We have been unable to make contact with the patient's daughter to this point. On review, this morning, she denies any current or overnight fever, chills, chest pain, palpitations, shortness breath, nausea, or vomiting. OBJECTIVE PHYSICAL EXAMINATION: VITAL SIGNS: Please see below. GENERAL: Pleasant, elderly female lying upright in bed at time of exam. No acute distress. Alert and oriented 3. HEENT: Normocephalic, atraumatic. Anicteric, noninjected sclera. Mucous membranes remain moist and she has multiple dental caries with fractured teeth, both on upper and lower gums. There is no pharyngeal erythema or exudate. Trachea is midline. Neck is supple with no appreciated thyromegaly or l ymphadenopathy. There is a mild to moderate amount of JVD present. CARDIOVASCULAR: Regular rate. Positive S1, S2. No murmurs, rubs or gallops appreciated. There is mild to moderate JVD, which has been present on previous day exams. 2+ radial pulses bilaterally. RESPIRATORY: Clear to auscultation bilaterally with no adventitious breath sounds appreciated. Speaking full sentences and breathing room air. Symmetric chest expansion. ABDOMINAL: Soft, nontender and nondistended. Normoactive bowel sounds present throughout, with no guarding or rigidity appreciated. EXTREMITIES: Lower extremities are free of edema. There is no clubbing or cyanosis appreciated. NEUROLOGICAL: Awake, alert and oriented 3. No focal neurologic deficits appreciated. Non-dysarthric speech. PSYCHOLOGICAL: Mood and affect appear appropriate. LABORATORY DATA, IMAGING STUDIES, MICROBIOLOGY: Please see below. PROBLEMS: #Acute renal failure superimposed on chronic kidney disease -Patient's chronic kidney disease has now progressed to end-stage renal disease. She continues to show no sign of uremia. Her overall fluid status is stable and her acid-base markers continue to remain in acceptable range. She lives in a tra iler home in [place], which may present challenges to potential peritoneal dialysis. She had been following with a tie binder in [place], but does state that she would prefer to establish here in [place] for her nephrology care and potential dialysis sessions due to its closer proximity to [place] versus [place]. It is important that we get a hold patient's daughter (Marcia, ) to further discuss the options available to patient as it pertains to dialysis. She was tried twice by phone yesterday with no ability to leave a voicemail. We will continue to try and get in contact with her. There are also social issues at play with both the patient and patient's having multi ple comorbidities. #Hyperkalemia -The second consecutive day, patient's serum potassium levels have improved - - sK was 4.8 today. We have discontinued. They'll pass administration this time and will continue with the 15 mg of oral Kayexalate twice a day. Per the primary team, patient's pharmacy did not have Kayexalate in stock. They're working to get Kayexalate in stock and patient will continue with outpatient administration of Kayexalate at current dosage. This recommendation for outpatient Kayexalate dosing was discussed with the patient's hospitalist physician. #Normocytic anemia in the context of end-stage renal disease -Patient's hemoglobin this morning was 8.1, slightly up from 7.9 yesterday. We will continue with the current Aranesp dosing, which was started yesterday. Patient is to receive 200 g per week. #Metabolic acidosis -Patient's acidosis appears to be all but resolved at this point and she responded well to the Bicitra. Serum bicarbonate today was within normal range. #Secondary hyperparathyroidism in the context of end-stage renal disease -Patient's serum parathyroid hormone level was elevated 2 days ago at 250. Considering patient's recent progression. End-stage renal disease. This is an acceptable level at this time. #Chronic kidney disease with associated mineral bone disease -Patient's serum phosphorus level increased to 5.7 yesterday. There was no measured level today. Patient was recently started on Renvela for a phosphate binding coverage. #Insulin-dependent diabetes mellitus -Patient continues to be on sliding scale insulin and long-acting insulin doses (Levemir). Serum glucose levels continue to be decently controlled considering patient's age and comorbidities. #Hypertension in the context of end-stage renal disease -Patient is to continue at this time with Lopressor 50 mg twice a day and 5 mg amlodipine dosing. Pressure seems to be adequately controlled this time and patient is asymptomatic. #Dental caries -Patient reported improvement in her oral and 2/come pain this morning. She seems to be responding well to the antibiotics and is currently on day #3 of clindamycin. Patient did mention today. She does not have insurance, which will make it difficult for her to procure dental coverage. [facility] Thank you for involving the nephrology team in the care of Nicanor.. We will co imtiaz to follow along with her and are currently working on discussing with her and her daughter and as to her outpatient dialysis plan and what the best situation will be as she likely will be transferring to nephrology care in [place]. Should renal questions arise, please contact us, thank you. VS, I&O, 24H, Fishbone Vital Signs/I&O Vital Signs Date Time Temp Pulse Resp B/P (MAP) Pulse Ox O2 Delivery O2 Flow Rate FiO2 12/21/19 20:00 97.2 66 18 136/68 (90) 99 Room Air I&O- Last 24 Hours up to 6 AM 12/21/19 06:00 Intake Total 1760 ml Output Total 2800 ml Balance -1040 ml Laboratory Data 24H LABS Laboratory Tests 2 12/21/19 05:19: Immature Granulocyte % (Auto) 0.5, Neutrophils (%) (Auto) 51.7, Lymphocytes (%) (Auto) 33.3, Monocytes (%) (Auto) 9.6H, Eosinophils (%) (Auto) 4.3H, Basophils (%) (Auto) 0.6, Neutrophils # (Auto) 3.3, Lymphocytes # (Auto) 2.1, Monocytes # (Auto) 0.6, Eosinophils # (Auto) 0.3, Basophils # (Auto) 0.0, Nucleated Red Blood Cells % (auto) 0.0, Anion Gap 5L, Glomerular Filtration Rate 9.6L, Calcium Level 8.2L, Magnesium Level 1.6L 12/21/19 11:42: Bedside Glucose (Misc Panel) 72L 12/21/19 17:24: Bedside Glucose (Misc Panel) 118H 12/21/19 20:10: Bedside Glucose (Misc Panel) 148H CBC/BMP Laboratory Tests 12/21/19 05:19 Microbiology Microbiology 12/20/19 Gastrointestinal Tract Panel (PCR) - Final, Complete Attending Note Attending Note Pt was seen and examined with the resident. To be discharged on SPS. She will follow up in clinic and start HD as outpatient after placement of tunneled HD catheter. TUSHAR PAEZ D.O. Dec 21, 2019 22:49 MARK ADAMS MD Jan 18, 2020 21:42
[2019-12-22] VITALS: BP 146/78
[2019-12-22 04:00] VITALS: BP 158/74
[2019-12-22] MEDS: CLINDAMYCIN 600 MG in IV 1 EA IV SCH (04:54)
[2019-12-22] MEDS: SLF 3 ML SYR IV SCH (04:54)
[2019-12-22 05:52] LABS: BASO % 0.5 % (0.0-1.0); EOS # 0.2 10^3/uL (0.0-0.5); EOS % 2.2 % (0.0-3.0); HEMATOCRIT 26.1 % (36.0-47.0); HEMOGLOBIN 8.4 g/dl (12.0-15.5); LYMPH # 1.6 10^3/uL (1.5-5.0); LYMPH % 18.6 % (24.0-44.0); MEAN CORPUSCULAR HEMOGLOBIN 30.4 pg (27.0-33.0); MEAN CORPUSCULAR HGB CONC 32.2 g/dl (32.0-36.5); MEAN CORPUSCULAR VOLUME 94.6 fl (80.0-96.0); MONO # 0.6 10^3/uL (0.0-0.8); MONO % 7.3 % (0.0-5.0); NEUTROPHILS # 5.9 10^3/uL (1.5-8.5); PLATELET COUNT, AUTOMATED 233 10^3/uL (150-450); RED BLOOD COUNT 2.76 10^6/uL (4.00-5.40); WHITE BLOOD COUNT 8.4 10^3/uL (4.0-10.0)
[2019-12-22 06:15] LABS: CALCIUM LEVEL 8.6 MG/DL (8.8-10.2); CREATININE FOR GFR 4.16 MG/DL (0.55-1.30); GLOMERULAR FILTRATION RATE 11.1 (>39); MAGNESIUM LEVEL 1.6 MG/DL (1.8-2.4); POTASSIUM SERUM 4.8 MEQ/L (3.5-5.1)
[2019-12-22 08:00] VITALS: BP 168/66
[2019-12-22] MEDS: (RENVELA) SEVELAMER **CARBONate** 800 MG TAB PO SCH (08:27)
[2019-12-22] MEDS: ASPIRIN 81 MG ENTERIC TAB PO SCH (08:28)
[2019-12-22] MEDS: MAGNESIUM OXIDE 400 MG TAB (MAG-OX) PO SCH (08:28)
[2019-12-22] MEDS: ATORVASTATIN 20 MG TAB PO SCH (08:28)
[2019-12-22] MEDS: amLODIPine 5 MG TAB PO SCH (08:28)
[2019-12-22 08:29] VITALS: BP 168/66
[2019-12-22] MEDS: LORATADINE 10 MG TAB PO SCH (08:29)
[2019-12-22] MEDS: PANTOPRAZOLE 40MG TAB (PROTONIX) PO SCH (08:29)
[2019-12-22] MEDS: HEPARIN SOD (PORCINE) 5000UNITS/ML 1ML VIAL/SYRINGE SQ SCH (08:29)
[2019-12-22] MEDS: METOPROLOL TART 25 MG TABLET PO SCH (08:29)
[2019-12-22] MEDS: HumaLOG INSULIN (NovoLOG) PER UNIT SC SCH (08:34)
[2019-12-22] MEDS ORDERED: LEVEMIR (INSULIN DETEMIR) 1 UNITS/0.01ML SC SCH (09:00)
--- NOTE | 2019-12-22 10:51 | IPNPDOC ---
Text Note Date of Service The patient was seen on 12/22/19. NOTE Subjective: Feels well today. Had episodes of severe hypoglycemia 30s this am. Is on levemir 75U BID at home, has been eating less, and is currently on 35U BID when she became hypoglycemic this am. Notes multiple episodes of hypoglycemia at home gris at night. Denies CP/SOB/palpitations. No N/V/abd pain. Objective: Vitals: (see below) General: No acute distress, laying comfortably in bed. HEENT: Moist mucous membranes. No tooth pain. No tooth abscess/swelling noted. Neck: No JVD or lymphadenopathy Cardiac: RRR, No murmurs Pulm: Clear to auscultation b/l. No wheezing, rhonchi Abd: NT/ND + BS Ext: No edema or cyanosis Labs (see below) Assessment/Plan 1. IDDM - cont levemir/SSI. Severe Hypoglycemia 12/21. Levemir decreased to 25U BID. 2. Hyperkalemia -improving. APpreciate nephro input. s/p patiromir, IVF/Lasix, s/p kayexalate. Discussed with CM and Dr. Guzmán. Plan to d/c on Kayexalate 15mg po Twice a week per Dr. Guzmán. 3. APRIL on CKD 4. ? 2/2 bactrim. Cr. improving. Nephro on board 4. HTN controlled 5. Dental caries - Tooth pain improved. cont Clinda. F/u with dentist outpt. 6. CT neck with multinodular goiter; to be followed by PCP/possible endocrine referral by PCP. 7. HLD on statin DVT prophy: Hep SQ Likely for d/c in 24 hr if no further episodes of hypoglycemia; pt agreeable VS,Fishbone, I+O VS, Fishbone, I+O Laboratory Tests 12/22/19 05:36 Vital Signs Date Time Temp Pulse Resp B/P (MAP) Pulse Ox O2 Delivery O2 Flow Rate FiO2 12/22/19 08:29 68 168/66 12/22/19 08:00 97.0 18 100 Room Air I&O- Last 24 Hours up to 6 AM 12/22/19 06:00 Intake Total 600 ml Output Total 2350 ml Balance -1750 ml JOSE SANDOVAL MD Dec 22, 2019 10:51
[2019-12-22] MEDS ORDERED: amLODIPine 5 MG TAB PO ONE (11:00)
[2019-12-22] MEDS ORDERED: SOD POLYSTYRENE SULFONATE SUSP 15 GM/60 ML UD PO SCH (12:00)
[2019-12-23] MEDS ORDERED: amLODIPine 10 MG TAB PO SCH (09:00)
[2019-12-23] MEDS ORDERED: PATIROMER SORBITEX CALCIUM 8.4 GM POWDER PACKET (VELTASSA) PO SCH (12:00)
[2020-02-08] MEDS ORDERED: VITA50005 PO (08:25)
[2020-02-08] MEDS ORDERED: LOSA25TA14 PO (08:25)
== END 2019-12-23 15:50 | disposition home or self-care (01) | DRG 683 ==
LOC: M PCU 23:04
PROVIDERS: ADMIT Internal Medicine; ATTEND Internal Medicine
DX: N17.9 Acute kidney failure, unspecified (principal); I12.0 Hypertensive chronic kidney disease with stage 5 chronic kidney disease or end stage renal disease; E87.2 Acidosis; E11.65 Type 2 diabetes mellitus with hyperglycemia; E11.22 Type 2 diabetes mellitus with diabetic chronic kidney disease; E87.6 Hypokalemia; K21.9 Gastro-esophageal reflux disease without esophagitis; E11.40 Type 2 diabetes mellitus with diabetic neuropathy, unspecified; M06.9 Rheumatoid arthritis, unspecified; E78.5 Hyperlipidemia, unspecified; K02.9 Dental caries, unspecified; N18.6 End stage renal disease; E66.9 Obesity, unspecified; M54.2 Cervicalgia; D63.1 Anemia in chronic kidney disease; E11.649 Type 2 diabetes mellitus with hypoglycemia without coma; R51 Headache; N25.81 Secondary hyperparathyroidism of renal origin; E04.2 Nontoxic multinodular goiter; Z79.4 Long term (current) use of insulin; Z88.1 Allergy status to other antibiotic agents; Z86.73 Personal history of transient ischemic attack (TIA), and cerebral infarction without residual deficits; Z68.29 Body mass index [BMI] 29.0-29.9, adult; Z79.899 Other long term (current) drug therapy; Z79.82 Long term (current) use of aspirin

== ENCOUNTER → 2020-01-09 | Outpatient (REF) | payer MEDICARE ==
[~2020-01-09] MED LIST: ACET-908 PO; AMLO1TAB24 PO; AMLO1TAB25 PO; ASPI-161 PO; ATOR40TA75 PO; CETI-24 PO; CLIN150C14 PO; CYCL-707 PO; ECOT81TA5 PO; FURO20TA2 PO; INSUDET SC; LEVE1INJ5 SUBQ; LORA-622 PO; LOSA25TA14 PO; LOSA50TA88 PO; METO1TAB87 PO; METO25TA4 PO; MIRA3350 PO; NOVOINJ3 SUBQ; OXYC1TAB23 PO; PANT40TA29 PO; PATIENT COMMENT; SODI15SS PO; SULF1TAB93 PO; VELT1POW PO; VITA50005 PO; med rec comment
[2020-02-21 09:35] LABS: CHOLESTEROL LEVEL 198 MG/DL (<200); CHOLESTEROL RISK RATIO 5.076 (<5); FERRITIN 25 NG/ML (8-252); FOLATE 13.3 NG/ML; HDL CHOLESTEROL 39 MG/DL (>40); HEPATITIS B CORE ANTIBODY IGM NEGATIVE (NEGATIVE); HEPATITIS B SURFACE ANTIBODY POSITIVE (POSITIVE); HEPATITIS B SURFACE ANTIGEN NEGATIVE (NEGATIVE); HEPATITIS C VIRUS ABY INDEX 0.2 INDEX (<0.8); IRON (FE) 97 UG/DL (50-170); LDL CHOLESTEROL 121 MG/DL (<100); NON-HDL-C 159 MG/DL; PERCENT SATURATION 30.9 % (13.2-45.0); TOTAL IRON BINDING CAPACITY 314 UG/DL (250-450); TRIGLYCERIDES LEVEL 190 MG/DL (<150); VITAMIN B12 LEVEL 458 PG/ML
== END ==
LOC: M LABWUC 07:41
PROVIDERS: ATTEND Internal Medicine Nephrology
DX: N18.5 Chronic kidney disease, stage 5 (principal); D63.1 Anemia in chronic kidney disease

== ENCOUNTER → 2020-01-13 | Outpatient (CLI) | payer MEDICARE ==
[~2020-01-13] MED LIST changes: +LIDOCAINE 1% MDV 20ML VIAL As Ordered ONE; +LIDOCAINE W/EPINEPHRINE 1% 20ML VIAL As Ordered ONE; +MIDAZOLAM INJ 2MG/2ML VIAL (J2250 PER 1MG) As Ordered ONE; +VANCOMYCIN 500MG/10ML VIAL As Ordered ONE; +fentaNYL 100 MCG/2 ML INJECTION (J3010) As Ordered ONE
--- NOTE | 2020-02-22 08:21 | REP ---
BILATERAL UPPER EXTREMITY ARTERIAL AND VENOUS DOPPLER ULTRASOUND HISTORY: End-stage renal disease vein mapping study. FINDINGS: There is no evidence of venous thrombosis in either upper extremity. Normal triphasic or biphasic waveforms are noted throughout the arterial tree bilaterally. RIGHT UPPER EXTREMITY VEIN DIAMETER CHART: BASILIC CEPAHLIC Upper humerus 3.9 mm 1.6 mm Lower humerus 3.0 mm 1.2 mm Upper forearm 1.6 mm 1.9 mm Lower forearm 0.6 mm 0.8 mm Median cubital vein 3.5 mm LEFT UPPER EXTREMITY VEIN DIAMETER CHART: BASILIC CEPAHLIC Upper humerus 3.2 mm 2.0 mm Lower humerus 3.6 mm 1.8 mm Upper forearm 1.8 mm 1.4 mm Lower forearm 1.1 mm 1.3 mm Median cubital vein 2.3 mm RIGHT UPPER EXTREMITY ARTERIAL DOPPLER VELOCITY AND SIZE DIAMETER CHART: Axillary artery PSV 98 cm/s, 5.6 mm Proximal brachial artery 107 cm/s, 4.0 mm Distal brachial artery 75 cm/s, 4.0 mm Proximal radial artery 101 cm/s, 2.3 mm Distal radial artery 69 cm/s 2.5 mm Proximal ulnar artery 79 cm/s, 4.2 mm Distal ulnar artery 64 cm/s, 1.7 mm LEFT UPPER EXTREMITY ARTERIAL DOPPLER VELOCITY AND SIZE DIAMETER CHART: Axillary artery PSV 111 cm/s, 5.2 mm Brachial artery 115 cm/s, 4.0 mm Proximal radial artery 81 cm/s, 2.1 mm Distal radial artery 61 cm/s, 1.4 mm Distal brachial artery 69 cm/s, 3.5 mm Proximal ulnar artery 80 cm/s, 3.2 mm Distal ulnar artery 56 cm/s, 1.4 mm MTDD
--- NOTE | 2020-04-06 19:21 | ROOPDOC ---
[facility] Report Of Operation Report of Operation DATE OF PROCEDURE: 01/13/20 PREPROCEDURE DIAGNOSES: End-stage renal disease requiring access for dialysis POSTPROCEDURE DIAGNOSES: Same PROCEDURE: 1. Ultrasound-guided access right internal jugular vein 2. Placement of a 23 cm tunneled right IJ PermCath SURGEON: Mercy Soler MD ANESTHESIA: Local anesthesia 12 mL lidocaine with epinephrine. Moderate intravenous conscious sedation was administered by Dr. Soler. The patient was independent we monitored by registered nurse under the department of radiology using automated blood pressure, EKG, and pulse oximetry. The detail sedation record is probably stored in the hospital information system. The following is a brief sedation record: Start time 12:15, start time 12:38, Versed 1 mg IV, fentanyl 50 g IV. INDICATION FOR PROCEDURE: This a very pleasant 74-year-old patient who requires access for dialysis and thus risks benefits and alternatives to PermCath placement were explained and she was agreeable to proceed. Informed consent was obtained. INTERPRETATION: The PermCath is in good position with the tip freely mobile at the SVC right atrial junction. No kinks or in the catheter. No pneumothorax is present. Okay to use catheter for dialysis. REPORT OF OPERATION: The patient was brought seen to graphic suite in stable condition. Her right neck and chest were prepped and draped in a sterile fashion. A timeout was performed. Sedation was administered without complication. Local anesthesia was administered to the skin and subcutaneous tissue over the right jugular vein. We extended this local anesthesia over to the right chest just distal to the clavicle. A microneedle was used to access the jugular vein under ultrasound guidance. A wire was passed through this access and a micro-sheath was placed and flushed with saline. We then advanced an O35 wire into the central system under fluoroscopic guidance. 2 serial dilations were performed over the wire and then a peel-away sheath was placed. A small incision was made at the right chest and 2370 m PermCath was tunneled from the right chest to the jugular access site. Once the cuff was within subcutaneous tissue, we removed the inner cannula and wire for the peel-away sheath and advanced the tip of the catheter through the peel-away sheath into the central system. The peel-away sheath was removed. Both ports rm back and flushed easily. They were heparin locked and appropriate caps were placed. Final imaging showed the catheter to be in good position with no kinks in the catheter and the tips freely mobile and the right atrial SVC junction. No pneumothorax w as present. The jugular access site was closed with deep and superficial Monocryl suture. Dermabond was placed at the skin. A Prolene sutures were used to close the exit site of the chest and secure the catheter to the chest wall. Sterile dressings were applied. The patient was then taken to recovery in stable condition. She tolerated the procedure and the sedation well. ESTIMATED BLOOD LOSS: Approximately 5 mL. COMPLICATIONS: None. PLAN: Okay to use the catheter for dialysis. Keep head elevated greater than 45 today to minimize risk of bleeding and bruising right neck and chest. We will see the patient back for placement of AV fistula. We appreciate the opportunity to participate in the care of this patient. MERCY SOLER MD Apr 06, 2020 19:21
== END ==
LOC: M RAD 09:35
PROVIDERS: ATTEND Surgery Vascular Surgery
DX: N18.6 End stage renal disease (principal)
CPT/HCPCS: 93985; 99152; C1750; C1894; J1644; J2250; J3010; J3370

== ENCOUNTER → 2020-01-20 | Outpatient (CLI) | payer MEDICARE ==
[~2020-01-20] MED LIST changes: -LIDOCAINE 1% MDV 20ML VIAL As Ordered ONE; -LIDOCAINE W/EPINEPHRINE 1% 20ML VIAL As Ordered ONE; -MIDAZOLAM INJ 2MG/2ML VIAL (J2250 PER 1MG) As Ordered ONE; -VANCOMYCIN 500MG/10ML VIAL As Ordered ONE; -fentaNYL 100 MCG/2 ML INJECTION (J3010) As Ordered ONE
== END ==
LOC: M LABSMTC 12:23
PROVIDERS: ATTEND Anesthesiology
DX: Z01.812 Encounter for preprocedural laboratory examination (principal); Z20.828 Contact with and (suspected) exposure to other viral communicable diseases

== ENCOUNTER 2020-02-22 10:27 | Day surgery (SDC) | payer MEDICARE ==
[~2020-02-22] VITALS: Ht 157.5 cm; Wt 67.6 kg
[~2020-02-22 10:27] MED LIST changes: -AMLO1TAB25 PO; -ASPI-161 PO; -CETI-24 PO; -CLIN150C14 PO; -INSUDET SC; -LOSA50TA88 PO; +LR 1,000 ML IV ONE; -METO25TA4 PO; +MIDAZOLAM INJ 2MG/2ML VIAL (J2250 PER 1MG) IV SCH; -OXYC1TAB23 PO; -PATIENT COMMENT; +fentaNYL 100 MCG/2 ML INJECTION (J3010) IV SCH
[2020-02-22] MEDS ORDERED: LIDOCAINE 1% MDV 20ML VIAL ONE ×2 (10:28)
[2020-02-22] MEDS ORDERED: EPINEPHrine INJ 1 MG/ML 1ML AMP ONE ×2 (10:28)
[2020-02-22] MEDS ORDERED: ROPIvacaine 0.5% 30ML INJECTION (J2795 PER 1MG) ONE ×2 (10:28)
[2020-02-22] MEDS ORDERED: ceFAZolin 2 GM/D5W 50 ML IV BAG (J0690 PER 500MG) As Ordered ONE (10:51)
[2020-02-22] MEDS ORDERED: fentaNYL 100 MCG/2 ML INJECTION (J3010) As Ordered ONE ×2 (11:03→12:07)
[2020-02-22] MEDS ORDERED: propofoL 500 MG/50 ML VIAL As Ordered ONE (11:04)
[2020-02-22] MEDS ORDERED: LIDOCAINE 2% 100MG/5ML SDV (FOR ANES.) As Ordered ONE (11:04)
[2020-02-22] MEDS ORDERED: BUPIVACAINE/EPIN 0.5% 30 ML VIAL As Ordered ONE (12:07)
[2020-02-22] MEDS ORDERED: ISOVUE-300 61% 50ML VIAL As Ordered ONE (12:07)
[2020-02-22] MEDS ORDERED: MIDAZOLAM INJ 2MG/2ML VIAL (J2250 PER 1MG) As Ordered ONE (12:07)
[2020-02-22] MEDS ORDERED: LIDOCAINE 1% SDV 30ML VIAL As Ordered ONE (12:07)
[2020-02-22] MEDS ORDERED: HEPARIN SOD (PORCINE) 5000UNITS/ML 1ML VIAL/SYRINGE As Ordered ONE (12:08)
[2020-02-22] MEDS ORDERED: VANCOMYCIN HCL 500 MG in D5W MINI-BAG PLUS 100 ML IV ONE (12:15)
[2020-02-22] MEDS ORDERED: VANCOMYCIN HCL 1,000 MG, VIAL MATE ADAPTER 1 EACH in D5W 250 ML IV ONE (12:15)
[2020-02-22] MEDS ORDERED: D5W/0.45% SODIUM CHLORIDE 1,000 ML IV SCH (12:30)
[2020-02-22] MEDS ORDERED: VANCOMYCIN 500MG/10ML VIAL As Ordered ONE (14:48)
[2020-02-22] MEDS ORDERED: VANCOMYCIN 1000MG/20ML VIAL As Ordered ONE (14:48)
[2020-02-22] MEDS ORDERED: OXYC1TAB23 PO (14:50)
--- NOTE | 2020-02-22 14:57 | ROOPDOC ---
[facility] Report Of Operation Report of Operation DATE OF PROCEDURE: 02/22/20 PREPROCEDURE DIAGNOSES: End-stage renal disease requiring access for dialysis POSTPROCEDURE DIAGNOSES: Same PROCEDURE: Right brachial basilic AV fistula creation SURGEON: Mercy Soler MD ANESTHESIA: Monitored anesthesia care, right scalene nerve block, local anesthesia INDICATION FOR PROCEDURE: This is a very pleasant 74-year-old patient with end- stage renal disease currently dialyzing with a right IJ PermCath. Risks benefits and alternatives to a right brachial basilic AV fistula creation were explained to the patient after reviewing her vein mapping, and she is agreeable to proceed. Informed consent was obtained. REPORT OF OPERATION: The patient was brought to the operating room in stable condition after right scalene nerve block was performed by our anesthesia elva eagues in preop holding. Monitored anesthesia care and antibiotics were administered without complication. Her right upper extremity was prepped and draped in a sterile fashion. A timeout was performed. Local anesthesia was administered to the skin and subcutaneous tissue 1 fingerbreadth distal to the antecubital crease over the brachial artery pulse. An incision was made transversely and carried down to subcutaneous tissue the Bovie cautery. The basilic vein was identified and skeletonized proximally and distally within the incision. Branches were suture ligated and divided. Distally, the distal basilic vein and the median cubital vein were suture ligated. We continued her dissection down to the brachial artery which was skeletonized proximally and distally. Branches were carefully isolated and preserved. Vessel loops were placed proximally and distally on the brachial artery. Next a bulldog clamp was placed proximally on the basilic vein and the vein was transected distally at the 2 branch points and the branch points were connected for a larger patch for anastomosis. Sequential dilators were passed through the vein, 3 mm, 3.5 mm, 4 mm, 4.5 mm and all dilators passed easily. Heparinized saline was used to flush the vein and the bulldog clamp was replaced. We then secured the Vesseloops on the brachial artery. A 5 mm arteriotomy was made and the vein was anastomosed to the artery and an end-to-side fashion with 6-0 Prolene suture. Before the final sutures were placed, we flushed the inflow and outflow of the artery and the vein, and irrigated with heparinized saline. We then placed the final sutures and good hemostasis was noted. Restart flow first through the vein and the inflow artery, and lastly to the hand. We then irrigated with saline. There was an excellent thrill and the fistula and good flow in the brachial artery distal to the anastomosis. However, we had trouble top learning a signal at the palmar arch. With compression of the fistula, there was a strong signaled palmar arch. Therefore a 2-0 silk suture was loosely tied at the AV anastomosis on the vein to slightly narrow it. Once this was done, we were able to easily auscultate a triphasic signal at the palmar arch and there was a palpable radial pulse and still excellent flow through the basilic vein. We then irrigated a second time with saline. The deep tissues were approximated with a running 2-0 Vicryl suture. Local anesthesia was administered the skin and subcutaneous tissue around the incision. We then approximated the deep dermal layer with a running 2-0 Vicryl suture. The skin was closed with a running subcuticular Monocryl suture. Mastisol and Steri-Strips were placed length of the incision and dry gauze and Tegaderm were placed over the Steri-Strips. The patient was then allowed to awaken and a sling was placed on her right upper extremity. She was taken to recovery in stable condition. She tolerated the procedure and the anesthesia well. ESTIMATED BLOOD LOSS: Approximately 15 mL. COMPLICATIONS: None. PLAN: Continue today's PermCath for dialysis. Okay to remove Tegaderm after 48 hours and gauze, but we Steri-Strips intact for 1 week to help with wound healing. Continue to squeeze ball to help mature fistula and increase circulation in the arm. No strenuous exercise or heavy lifting for 1 week. Follow up in clinic in 1 week to check incision. We appreciate the opportunity to produce patent care of this patient. MERCY SOLER MD Feb 22, 2020 14:57
[2020-02-22 15:25] VITALS: BP 166/68
[2020-02-22] MEDS ORDERED: HumaLOG INSULIN (NovoLOG) PER UNIT As Ordered ONE (15:56)
[2020-02-22] MEDS ORDERED: HumaLOG INSULIN (NovoLOG) PER UNIT SC SCH (16:15)
== END 2020-02-22 16:16 | disposition home or self-care (01) ==
LOC: M SDC 10:27
PROVIDERS: ATTEND Surgery Vascular Surgery
DX: N18.6 End stage renal disease (principal); E11.22 Type 2 diabetes mellitus with diabetic chronic kidney disease; E11.40 Type 2 diabetes mellitus with diabetic neuropathy, unspecified; I12.0 Hypertensive chronic kidney disease with stage 5 chronic kidney disease or end stage renal disease; E78.5 Hyperlipidemia, unspecified; M06.9 Rheumatoid arthritis, unspecified; N25.81 Secondary hyperparathyroidism of renal origin; K21.9 Gastro-esophageal reflux disease without esophagitis; M85.80 Other specified disorders of bone density and structure, unspecified site; E55.9 Vitamin D deficiency, unspecified; Z86.73 Personal history of transient ischemic attack (TIA), and cerebral infarction without residual deficits; Z88.1 Allergy status to other antibiotic agents; Z90.710 Acquired absence of both cervix and uterus; Z99.2 Dependence on renal dialysis
CPT/HCPCS: 36821; 84132; J0171; J1644; J2250; J2795; J3010; J3370

== ENCOUNTER 2020-03-26 21:54 | Inpatient (IN) | payer MEDICARE ==
[~2020-03-26 21:54] MED LIST changes: -LR 1,000 ML IV ONE; -MIDAZOLAM INJ 2MG/2ML VIAL (J2250 PER 1MG) IV SCH; +OXYC1TAB23 PO; -fentaNYL 100 MCG/2 ML INJECTION (J3010) IV SCH
[2020-03-26 23:22] VITALS: BP 144/68
--- NOTE | 2020-03-26 23:48 | IPNPDOC ---
Text Note Date of Service The patient was seen on 03/26/20. NOTE TIME OF SERVICE 1158PM Ms. Greenberg is a 74 yr old F w hx of incompletely treated dental carries, DM w neuropathy, HTN, CVA, RA, chronic back and ESRD who presented to [facility] w c/o neck pain; she had a CT with contrast done and was transferred to [facility] for dialysis. We will consult for dialysis in the morning. Rest per 's H&P DEJAH LAKE MD Mar 26, 2020 23:48
[2020-03-27] MEDS ORDERED: GLUCAGON INJ 1MG VIAL SC PRN (00:45)
[2020-03-27] MEDS ORDERED: DEXTROSE 50% 50 ML SYRINGE IV PRN (00:45)
[2020-03-27] MEDS ORDERED: GLUCOSE 4GM CHEW TABLET PO PRN (00:45)
[2020-03-27] MEDS ORDERED: ACETAMINOPHEN TAB 650MG DOSE (2X325MG) PO PRN (00:45)
[2020-03-27] MEDS ORDERED: LOSA50TA88 PO (01:18)
[2020-03-27] MEDS ORDERED: CETI-24 PO (01:18)
[2020-03-27] MEDS ORDERED: AMLO1TAB25 PO (01:18)
[2020-03-27] MEDS ORDERED: METO25TA4 PO (01:18)
[2020-03-27] MEDS ORDERED: INSUDET SC (01:18)
[2020-03-27] MEDS ORDERED: ASPI-161 PO (01:18)
[2020-03-27] MEDS ORDERED: CLIN150C14 PO (01:18)
[2020-03-27] MEDS ORDERED: PATIENT COMMENT (01:19)
--- NOTE | 2020-03-27 03:12 | HPEPDOC ---
[facility] Medical History & Physical Date of Admission Mar 27, 2020 Date of Service: Mar 27, 2020 Attending Physician: DEJAH ALKE MD History and Physical CHIEF COMPLAINT: Left sided neck jaw pain HISTORY OF PRESENT ILLNESS: Patient is a 74 year old female who presented to [facility] originally with a complaint of left sided neck pain. Patient had been seen by her PCP about a week ago for pain in her neck and jaw on the left side. At the time she was started on antibiotics. She was first given Amoxacillin however, on Thursday there was concern that the patient had an allergy to Amoxicillin and this was discontinued and the patient was started on Clindamycin PO. At some point during this course the patient was also placed on oral flagyl although the history is unclear. The patient was seen again in follow-up with her PCP where she complained of persistent neck pain and jaw pain. The patient presented to [facility] ER where she was evaluated for potential dental abscess. She was vitally stable. She was afebrile. Laboratory studies demonstrated a mild leukocytosis of 10.1, hyperkalemia of 5.4, elevated creatinine of 4.88, and anemia with Hgb of 10.4. She has a history of CKD stage V and is currently on dialysis. Dr. Pierce of Nephrology was contacted as patient would need to receive IV contrast to be evaluated for possible abscess. Plan was made to have patient receive CT with contrast and transfer to [facility] for dialysis in AM. The patient received a CT of the neck w/ contrast and head without. Imaging did not demonstrate any findings consistent with dental abscess. There was noted to be innumerable thyroid nodules. However, review of patient medical records shows she had similar neck pain back in November 2019 at which time she received CT imaging which demonstrated thyroid nodules on the left. Patient received a dose of Clindamycin IV and was transferred to [facility] for further evaluation and management On presentation to [facility] the patient was vitally stable. She stated that she continues to have persistent pain on the left side of her neck and jaw. She denies any diplopia or jaw pain/claudication. She states that she has been having increasing difficulty swallowing. She denies any choking. She states that she also has soreness in her throat and chills and fevers over the past few days. PAST MEDICAL HISTORY: 1. End Stage Renal Disease on dialysis Thursday, , Thursday 2. Hypertension 3. 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 Rheumatoid Arthritis 5. GERD 6. Vitamin D Deficiency 7. Osteoporosis 8. 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 Chronic Back Pain 10. Dental Caries PAST SURGICAL HISTORY: 1. Hysterectomy 2. Tonsillectomy 3. Upper and Lower Endoscopy 4. Bilateral Carpal Tunnel Release 5. AV Fistula SOCIAL HISTORY: Patient lives at home with her . She ambulates with a wheelchair. She is a nonsmoker. She denies any IV or illicit drug use FAMILY HISTORY: Family history reviewed. Non-pertinent ALLERGIES: Please see below. REVIEW OF SYSTEMS: CONSTITUTIONAL: Admits to fevers, chills and night sweats. Denies unintentional weightloss or weight-gain HEENT: Admits to difficulty swallowing and pain on swallowing. Denies choking. Denies changes in vision. Denies difficulty chewing. Admits to headache CARDIOVASCULAR: Denies chest pain, palpitations, or feelings of the heart racing RESPIRATORY: Admits to shortness of breath. Denies wheezing. Denies cough GASTROINTESTINAL: Admits to nausea and vomiting. Denies constipation. Denies diarrhea. GENITOURINARY: Denies dysuria, increased frequency, or urgency. SKIN: Denies rashes or lesions MUSCULOSKELETAL: Admits to weakness in her legs which is chronic. Admits to chronic back pain. Admits to left sided neck pain NEUROLOGICAL: Denies any changes in her speech. Denies changes in gait PSYCHIATRIC: Denies depression and anxiety ENDOCRINE: Denies heat intolerance or cold intolerance HEMATOLOGIC/LYMPHATIC: Denies easy bruising or bleeding. Denies DVT or PE HOME MEDICATIONS: Please see below. PHYSICAL EXAMINATION: VITAL SIGNS: Temperature 98.1, pulse 71, respiratory rate 20, blood pressure 144/68, pulse oximetry 96% on room air. GENERAL APPEARANCE: Awake, alert, and oriented. Does not appear to be in any acute distress. Lying comfortably in bed and conversive. HEENT: Atraumatic. Normocephalic. Eyes are nonicteric. Trachea is midline. No palpable cervical, axillary, or supraclavicular lymphadenopathy. No tenderness of temporal region. Overall poor dentition with coated tongue. Class III/IV airway. No warmth to touch of left side of neck or mandibular region. CARDIOVASCULAR: Normal S1, S2. Regular rate and rhythm. No clicks, rubs, or murmurs. LUNGS: Clear vesicular breath sounds bilaterally. No wheezes, rhonchi, or rales. No stridor. Good respiratory effort with symmetric chest expansion. No conversational dyspnea ABDOMEN: Soft, nondistended. Nontender. No rebound tenderness or guarding. Normoactive bowel sounds EXTREMITIES: Trace bilateral lower extremity edema. Full and equal pulses in bilateral upper and lower extremities NEUROLOGICAL: no focal neurological deficits PSYCHIATRIC: mood and affect appear appropriate LABORATORY DATA: See below. IMAGING: Completed at [facility]. CT neck w/ contrast demonstrating innumerable thyroid nodules. Otherwise negative for lymphadenopathy or dental abscess MICROBIOLOGY: Please see below. ASSESSMENT: Patient is a 74 year old female with ESRD on hemodialysis who presented to [facility] with worsening left sided neck pain and difficulty swallowing felt to have a dental infection and failed outpatient oral antibiotic therapy. Dr. Pierce contacted with recommendations to obtain CT with contrast and transfer to [facility] for dialysis in AM . PLAN: 1. Left sided neck and jaw pain likely 2/2 odontogenic infection - DDX includes dental caries/odontogenic infection, oral candidiasis, giant cell arteritis, TMJ -Patient has had worsening left sided neck and jaw pain for one week duration. She was placed on clindamycin on Thursday however states that she had difficulty taking the pills. She has received a CT of the neck with contrast at [facility] which demonstrates multiple thyroid nodules bu no dental abscess. Patient has a history of dental caries and overall poor dentition -ESR only 68. No tenderness of temporal region. No changes in vision or jaw claudication. Giant Cell arteritis unlikely although on differential -Currently afebrile. WBC only slightly elevated. CRP not elevated. ESR 68. -Will continue Clindamycin for Odontogenic infection. Patient previously on Amoxicillin outpatient and apparently developed throat swelling. -Magic Mouth wash prn 2. Thyroid Nodules on CT imaging -Patient received CT neck at [facility] which demonstrated innumerable thyroid nodules. Review of the patients medical record shows that she had a similar finding in November 2019 which showed multiple hypodense thyroid nodules measuring up to 9 mm as well as dental caries and periodontal disease. At the time the patient did have a follow-up Thyroid ultrasound showing multinodular thyroid gland with multiple cyst appearing structure. However there was a hypoechoic, partially solid appearing left inferior thyroid lobe nodule noted with recommendations for possible FNA. It is unclear whether the patient ever followed up with this outpatient -Thyroid is not tender. Will obtain TSH. Otherwise patient can follow-up outpatient for further evaluation 3. ESRD -Patient has ESRD on HD Thursday, and Thursday. She has received a Neck CT with IV contrast. Plan for HD in AM -Renal Diet 4. Hyperkalemia -Mildly elevated at 5.4. Likely 2/2 to renal disease. Patient planned for dialysis tomorrow. -Will continue to monitor 5. Chronic Anemia 2/2 ESRD -Patient has mild anemia of 10. Likely secondary to ESRD. No active bleeding. Patient does not receive Aranesp outpatient 6. Diabetes Mellitus Type II -Patient on Levemir 75 units BID at home. Will start start 40 units BID while hospitalized. Titrate as necessary -Sliding scale insulin -Consistent carb diet 7. HTN -Continue home antihypertensives 8. GERD -Continue protonix 9. Hyperlipidemia -Continue statin 10. Allergies -Continue Claritin 11. DVT Prophylaxis -Heparin SQ Vital Signs Vital Signs Date Time Temp Pulse Resp B/P (MAP) Pulse Ox O2 Delivery O2 Flow Rate FiO2 03/26/20 23:22 98.1 71 20 144/68 (93) 96 Room Air Home Medications Scheduled Amlodipine Besylate (Amlodipine Besylate) 10 Mg Tablet, 10 MG PO DAILY Aspirin (Aspirin EC) 81 Mg Tablet.dr, 81 MG PO DAILY Atorvastatin Calcium (Atorvastatin Calcium) 40 Mg Tablet, 40 MG PO DAILY Cetirizine HCl (Cetirizine HCl) 10 Mg Tablet, 10 MG PO DAILY Clindamycin Hcl (Clindamycin HCl) 150 Mg Capsule, 450 MG PO Q8H Ergocalciferol (Vitamin D2) (Vitamin D2) 50,000 Units Cap, 50,000 UNITS PO QWEEK Insulin Detemir (Levemir) 100 Unit/1 Ml Vial, 75 UNITS SC BID Loratadine (Loratadine) 10 Mg Tablet, 10 MG PO DAILY Losartan Potassium (Losartan Potassium) 50 Mg Tablet, 50 MG PO DAILY Metoprolol Tartrate (Metoprolol Tartrate) 25 Mg Tablet, 25 MG PO BID Pantoprazole Sodium (Pantoprazole Sodium) 40 Mg Tablet.dr, 40 MG PO DAILY Scheduled PRN Acetaminophen (Acetaminophen) 325 Mg Tablet, 650 MG PO Q8H PRN for PAIN Miscellaneous Medications [Patient Comment] PATIENT IS A POOR HISTORIAN. COMPLETED MED REC VIA EXTERNAL MED HISTORY. Allergies Coded Allergies: amoxicillin (Verified Allergy, Severe, THROAT CLOSES, 03/27/20) Penicillins (Verified Allergy, Unknown, 03/27/20) cefuroxime (Verified Allergy, Unknown, 03/27/20) A-FIB/CHADSVASC A-FIB History Current/History of A-Fib/PAF?: No ARIA WILLARD DO Mar 27, 2020 03:12
[2020-03-27] MEDS: CLINDAMYCIN 600 MG in IV 1 EA IV SCH ×3 (04:07→22:15)
[2020-03-27 05:20] LABS: HEMATOCRIT 28.9 % (36.0-47.0); HEMOGLOBIN 9.3 g/dl (12.0-15.5); MEAN CORPUSCULAR HEMOGLOBIN 30.1 pg (27.0-33.0); MEAN CORPUSCULAR HGB CONC 32.2 g/dl (32.0-36.5); MEAN CORPUSCULAR VOLUME 93.5 fl (80.0-96.0); PLATELET COUNT, AUTOMATED 157 10^3/uL (150-450); RED BLOOD COUNT 3.09 10^6/uL (4.00-5.40); WHITE BLOOD COUNT 8.8 10^3/uL (4.0-10.0)
[2020-03-27] MEDS: HEPARIN SOD (PORCINE) 5000UNITS/ML 1ML VIAL/SYRINGE SQ SCH ×2 (05:21→18:43)
[2020-03-27] MEDS: ASPIRIN 81 MG ENTERIC TAB PO SCH (05:21)
[2020-03-27] MEDS: ATORVASTATIN 20 MG TAB PO SCH (05:25)
[2020-03-27] MEDS: PANTOPRAZOLE 40MG TAB (PROTONIX) PO SCH (05:26)
[2020-03-27] MEDS: LORATADINE 10 MG TAB PO SCH (05:26)
[2020-03-27] MEDS: METOPROLOL TART 25 MG TABLET PO SCH ×2 (05:35→22:14)
[2020-03-27] MEDS: amLODIPine 10 MG TAB PO SCH (05:36)
[2020-03-27] MEDS: LOSARTAN 50MG TABLET PO SCH (05:37)
[2020-03-27 05:45] LABS: C REACTIVE PROTEIN QUANTITATIV 0.3 MG/DL (0.00-0.30); CALCIUM LEVEL 8.7 MG/DL (8.8-10.2); CREATININE FOR GFR 4.74 MG/DL (0.55-1.30); GLOMERULAR FILTRATION RATE 9.6 (>39); POTASSIUM SERUM 5.3 MEQ/L (3.5-5.1); THYROID STIMULATING HORMONE 1.39 uIU/ML (0.358-3.740)
[2020-03-27 06:00] VITALS: BP 135/56
[2020-03-27] MEDS: HumaLOG INSULIN (NovoLOG) PER UNIT SC SCH ×4 (07:30→21:00)
[2020-03-27] MEDS: LEVEMIR (INSULIN DETEMIR) 1 UNITS/0.01ML SC SCH ×2 (08:15→21:00)
[2020-03-27] MEDS: MAGIC MOUTHWASH SUSPENSION BTL SS PRN (08:19)
[2020-03-27] MEDS ORDERED: CETIRIZINE (ZyrTEC) 10 MG TAB PO SCH (09:00)
--- NOTE | 2020-03-27 15:25 | CR ---
DATE OF CONSULTATION: 03/27/2020 REQUESTING PHYSICIAN: Dr. Becky Aponte CONSULTING PHYSICIAN: Dr. Pierce REASON FOR CONSULTATION: Management of end-stage renal disease on hemodialysis. HISTORY OF PRESENT ILLNESS: Nicanor Greenberg is 74-year-old female with a past medical history of end-stage renal disease on dialysis on Thursday, , Thursday via right IJ permacath. Also past medical history of hypertension, insulin dependent diabetes mellitus with nephropathy and neuropathy, rheumatoid arthritis, anemia of chronic renal failure, dental caries and other comorbid conditions that are mentioned below. The patient presented to [facility] emergency room yesterday for complaint of swelling on the left neck and jaw and there was a concern for potential dental abscess. She has been treated by her primary care physician for dental infections for the past week and has been on amoxicillin, which was switched to clindamycin, but her neck and jaw pain persisted. She had a CT with contrast at [facility], which did not demonstrate abscess, but did note innumerable thyroid nodules. The patient was transferred to [facility] for further evaluation and management and she is pending ENT evaluation. Today is her day for dialysis and she is mildly hypokalemic and nephrology evaluation was requested. PAST MEDICAL HISTORY: 1. End-stage renal disease on dialysis. 2. Hypertension. 3. Insulin dependent diabetes mellitus with diabetic neuropathy and nephropathy. 4. Rheumatoid arthritis 5. Gastroesophageal reflux disease. 6. Secondary hyperparathyroidism of renal origin. 7. Osteoporosis. 8. Anemia of chronic renal failure. 9. Chronic back pain. 10. Dental caries. PAST SURGICAL HISTORY: 1. Hysterectomy. 2. Tonsillectomy. 3. Endoscopy. 4. Carpal tunnel release. 5. Right upper extremity AV fistula. 6. Dialysis catheter placement. SOCIAL HISTORY: , lives with her . Nonsmoker. Denies drug or alcohol abuse. FAMILY HISTORY: The patient denies history of end-stage renal disease in the family. ALLERGIES: PENICILLIN, AMOXICILLIN, CEFUROXIME. REVIEW OF SYSTEMS: CONSTITUTIONAL: She complains of fatigue and tiredness and chills. ENT: She complains of pain with swallowing and swelling in the left jaw and neck. She denies chest pain or palpitations. She complains of ankle swelling, respiratory. She denies cough or hemoptysis. GASTROINTESTINAL: She complains of nausea. She denies diarrhea or vomiting. GENITOURINARY: She denies hematuria or dysuria. SKIN: She denies new rashes or ulcers. MUSCULOSKELETAL: She admits to chronic back pain and complains of swelling in the feet and ankles. NEUROLOGIC: She denies seizures or syncope. ENDOCRINE: She reports diabetes and secondary hyperparathyroidism. HEMATOLOGIC: She reports anemia. She denies history of clotting disorder. PSYCHIATRIC: Denies depression or anxiety. The remainder of review of system is negative or as per history of present illness. HOME MEDICATIONS: Amlodipine 10 mg by mouth daily, aspirin 81 mg by mouth daily, Lipitor 40 mg by mouth daily, clindamycin 450 mg by mouth q 8 hours, insulin, losartan 50 mg by mouth daily, metoprolol 25 mg by mouth b.i.d., Protonix 40 mg by mouth daily, Tylenol as needed. PHYSICAL EXAMINATION: Vitals: Temperature: T-max 98.4, T-current 98.4, pulse 65, respiratory rate 18, blood pressure 135/56, saturating 99% on room air. General: The patient is seen sitting up at the age of the bed, elderly female, awake, alert, oriented, interactive, conversational in no apparent distress. Extraocular muscles are intact. The tongue is moist. He has poor dentition. She is not wearing the facial mask. The left side of the neck is appreciably warm to touch and neither is it erythematous. Cardiac: S1, S2, regular rate and rhythm. Pedal edema noted. Lungs: Clear to auscultation. She is comfortable on room air. No crackles or rales. Abdomen: Soft and nontender. There are bowel sounds. Extremities: There is a right upper extremity fistula. There is a dialysis catheter present in the right neck. There is mild ankle edema. Neurologic: She is at baseline mentation, interactive and oriented x3. LABORATORY DATA: Blood work: Hemoglobin 9.3, platelets 157, sodium 134, potassium 5.3, bicarbonate 19. Blood cultures are pending. INPATIENT MEDICATIONS: Clindamycin 600 mg IV q 8 hours, Tylenol as needed, amlodipine 10 mg by mouth daily, aspirin 81 mg by mouth daily, atorvastatin 40 mg by mouth daily, heparin subcutaneous 5000 units q 12 hours, insulin, losartan 50 mg by mouth daily, metoprolol 25 mg by mouth b.i.d., Protonix 40 mg by mouth daily. PROBLEMS: 1. End-stage renal disease on hemodialysis on Thursday, , Thursday schedule. The patient will be dialyzed this evening. We will dialyze for 3 hours. She is mildly hyperkalemic and that will improve with dialysis. She is being dialyzed by a permacath at present and will follow up with the vascular surgeon for further work on her fistula. 2. Left-sided neck and jaw pain. She had a recent contrast CT at [facility] yesterday evening, which did not demonstrate a dental abscess apparently. Antimicrobials as per primary team. She has been on a few different antibiotics the past week and she may need evaluation by ENT. 3. Hyperkalemia. It will improve with dialysis today. 4. Chronic anemia secondary to renal failure. We will start the patient on Aranesp with dialysis treatment. 5. Hypertension. Blood pressures are acceptable and I am making no change to the current regimen of amlodipine, losartan and metoprolol. Thank you for involving me in the care of Ms. Greenberg, I will be happy to follow her along with you. CEFERINO
--- NOTE | 2020-03-27 17:38 | DS.PDOC ---
Discharge Summary General Date of Admission Mar 26, 2020 at 23:00 Date of Discharge 03/29/20 Discharge Summary PROCEDURES PERFORMED DURING STAY: [None]. ADMITTING DIAGNOSES: Left sided neck Goiter Thyroid Nodules ESRD Hyperkalemia Chronic Anemia 2/2 ESRD Diabetes Mellitus Type II HTN GERD Hyperlipidemia DISCHARGE DIAGNOSES: Left sided neck Goiter Thyroid Nodules ESRD Hyperkalemia Chronic Anemia 2/2 ESRD Diabetes Mellitus Type II HTN GERD Hyperlipidemia COMPLICATIONS/CHIEF COMPLAINT: Esrd,Tooth Infection. HISTORY OF PRESENT ILLNESS: : Patient is a 74 year old female who presented to [facility] originally with a complaint of left sided neck pain. Patient had been seen by her PCP about a week ago for pain in her neck and jaw on the left side. At the time she was started on antibiotics. She was first given Amoxacillin however, on Thursday there was concern that the patient had an allergy to Amoxicillin and this was discontinued and the patient was started on Clindamycin PO. At some point during this course the patient was also placed on oral flagyl although the history is unclear. The patient was seen again in follow-up with her PCP where she complained of persistent neck pain and jaw pain. The patient presented to [facility] ER where she was evaluated for potential dental abscess. She was vitally stable. She was afebrile. Laboratory studies demonstrated a mild leukocytosis of 10.1, hyperkalemia of 5.4, elevated creatinine of 4.88, and anemia with Hgb of 10.4. She has a history of CKD stage V and is currently on dialysis. Dr. Pierce of Nephrology was contacted as patient would need to receive IV contrast to be evaluated for possible abscess. Plan was made to have patient receive CT with contrast and transfer to [facility] for dialysis in AM. The patient received a CT of the neck w/ contrast and head without. Imaging did not demonstrate any findings consistent with dental abscess. There was noted to be innumerable thyroid nodules. However, review of patient medical records shows she had similar neck pain back in November 2019 at which time she received CT imaging which demonstrated thyroid nodules on the left. Patient received a dose of Clindamycin IV and was transferred to [facility] for further evaluation and management On presentation to [facility] the patient was vitally stable. She stated that she continues to have persistent pain on the left side of her neck and jaw. She denies any diplopia or jaw pain/claudication. She states that she has been having increasing difficulty swallowing. She denies any choking. She states that she also has soreness in her throat and chills and fevers over the past few days. HOSPITAL COURSE: During hospital stay ENT consulted patient. Patient was found to have goiter. TSH was normal. Thyroid Biopsy was done , await the results Recommended follow up with IR for biopsy result. Unlikely patient has infection. Dr Jackson recommended to discontinue antibiotics. First set blood culture was positive, repeated blood culture 2 sets negative. Most likely patient had contaminated blood culture. Patient afebrile, no leukocytosis DISCHARGE MEDICATIONS: Please see below. ALLERGIES: Please see below. PHYSICAL EXAMINATION ON DISCHARGE: VITAL SIGNS: Please see below. General: The patient is seen sitting up at the age of the bed, elderly female, awake, alert, oriented, interactive, conversational in no apparent distress. Extraocular muscles are intact. The tongue is moist. He has poor dentition. She is not wearing the facial mask. Neck : Mildly swollen on the left side, nontender. Cardiac: S1, S2, regular rate and rhythm. Pedal edema noted. Lungs: Clear to auscultation. She is comfortable on room air. No crackles or rales. Abdomen: Soft and nontender. There are bowel sounds. Extremities: There is a right upper extremity fistula. There is a dialysis catheter present in the right neck. There is mild ankle edema. Neurologic: She is at baseline mentation, interactive and oriented x3. LABORATORY DATA: Please see below. IMAGING: CT with contrast at [facility], which did not demonstrate abscess, but did note innumerable thyroid nodules PROGNOSIS: Fair ACTIVITY: [As tolerated]. ITEMS TO FOLLOWUP ON ON OUTPATIENT: Follow-up with PCP and IR for biopsy result DISCHARGE CONDITION: [Stable]. TIME SPENT ON DISCHARGE: Greater than 40 minutes. Vital Signs/I&Os Vital Signs Date Time Temp Pulse Resp B/P (MAP) Pulse Ox O2 Delivery O2 Flow Rate FiO2 03/27/20 06:00 98.4 65 18 135/56 (82) 99 Room Air I&O- Last 24 Hours up to 6 AM 03/27/20 06:00 Intake Total 410 ml Output Total 900 ml Balance -490 ml Laboratory Data Labs 24H Laboratory Tests 2 03/27/20 04:54: Nucleated Red Blood Cells % (auto) 0.0, Anion Gap 8, Glomerular Filtration Rate 9.6L, Calcium Level 8.7L, C-Reactive Protein, Quantitative 0.30, Lipase 561H, Thyroid Stimulating Hormone (TSH) 1.390 03/27/20 06:21: Bedside Glucose (Misc Panel) 96 03/27/20 11:46: Bedside Glucose (Misc Panel) 139H CBC/BMP Laboratory Tests 03/27/20 04:54 FSBS Laboratory Tests Test 03/27/20 06:21 03/27/20 11:46 Range/Units Bedside Glucose (Misc Panel) 96 139 83-110 MG/DL Microbiology Microbiology 03/27/20 Blood Culture, Received Pending Discharge Medications Scheduled Amlodipine Besylate (Amlodipine Besylate) 10 Mg Tablet, 10 MG PO DAILY, (Reported) Aspirin (Aspirin EC) 81 Mg Tablet.dr, 81 MG PO DAILY, (Reported) Atorvastatin Calcium (Atorvastatin Calcium) 40 Mg Tablet, 40 MG PO DAILY, (Reported) Cetirizine HCl (Cetirizine HCl) 10 Mg Tablet, 10 MG PO DAILY, (Reported) Clindamycin Hcl (Clindamycin HCl) 150 Mg Capsule, 450 MG PO Q8H, (Reported) Ergocalciferol (Vitamin D2) (Vitamin D2) 50,000 Units Cap, 50,000 UNITS PO QWEEK, (Reported) Insulin Detemir (Levemir) 100 Unit/1 Ml Vial, 75 UNITS SC BID, (Reported) Loratadine (Loratadine) 10 Mg Tablet, 10 MG PO DAILY, (Reported) Losartan Potassium (Losartan Potassium) 50 Mg Tablet, 50 MG PO DAILY, (Reported) Metoprolol Tartrate (Metoprolol Tartrate) 25 Mg Tablet, 25 MG PO BID, (Reported) Pantoprazole Sodium (Pantoprazole Sodium) 40 Mg Tablet.dr, 40 MG PO DAILY, (Reported) Scheduled PRN Acetaminophen (Acetaminophen) 325 Mg Tablet, 650 MG PO Q8H PRN for PAIN, (Rep orted) Miscellaneous Medications [Patient Comment] , (Reported) PATIENT IS A POOR HISTORIAN. COMPLETED MED REC VIA EXTERNAL MED HISTORY. Allergies Coded Allergies: amoxicillin (Verified Allergy, Severe, THROAT CLOSES, 03/27/20) Penicillins (Verified Allergy, Unknown, 03/27/20) cefuroxime (Verified Allergy, Unknown, 03/27/20) JADE MOBLEY DO Mar 27, 2020 17:38
[2020-03-27 22:00] VITALS: BP 125/56
[2020-03-28] MEDS: CLINDAMYCIN 600 MG in IV 1 EA IV SCH ×3 (04:09→20:23)
[2020-03-28] MEDS: HEPARIN SOD (PORCINE) 5000UNITS/ML 1ML VIAL/SYRINGE SQ SCH ×2 (05:00→18:32)
[2020-03-28 06:00] VITALS: BP 119/55
[2020-03-28 06:21] LABS: HEMATOCRIT 30.6 % (36.0-47.0); HEMOGLOBIN 10.1 g/dl (12.0-15.5); MEAN CORPUSCULAR HEMOGLOBIN 30.1 pg (27.0-33.0); MEAN CORPUSCULAR VOLUME 91.1 fl (80.0-96.0); PLATELET COUNT, AUTOMATED 156 10^3/uL (150-450); RED BLOOD COUNT 3.36 10^6/uL (4.00-5.40); WHITE BLOOD COUNT 7.1 10^3/uL (4.0-10.0)
[2020-03-28 06:50] LABS: CALCIUM LEVEL 9.1 MG/DL (8.8-10.2); CREATININE FOR GFR 3.3 MG/DL (0.55-1.30); GLOMERULAR FILTRATION RATE 14.5 (>39); POTASSIUM SERUM 4.4 MEQ/L (3.5-5.1)
[2020-03-28] MEDS: HumaLOG INSULIN (NovoLOG) PER UNIT SC SCH ×4 (07:30→21:00)
[2020-03-28] MEDS: PANTOPRAZOLE 40MG TAB (PROTONIX) PO SCH (08:10)
[2020-03-28] MEDS: ASPIRIN 81 MG ENTERIC TAB PO SCH (08:10)
[2020-03-28] MEDS: LORATADINE 10 MG TAB PO SCH (08:10)
[2020-03-28] MEDS: ACETAMINOPHEN 650MG ER TAB (TYLENOL ARTHRITIS) PO PRN (08:11)
[2020-03-28] MEDS: ATORVASTATIN 20 MG TAB PO SCH (08:11)
[2020-03-28] MEDS: METOPROLOL TART 25 MG TABLET PO SCH ×2 (08:17→20:24)
[2020-03-28] MEDS: amLODIPine 10 MG TAB PO SCH (08:18)
[2020-03-28] MEDS: LOSARTAN 50MG TABLET PO SCH (08:18)
[2020-03-28] MEDS: LEVEMIR (INSULIN DETEMIR) 1 UNITS/0.01ML SC SCH ×2 (10:48→21:00)
--- NOTE | 2020-03-28 11:03 | IPNPDOC ---
Text Note Date of Service The patient was seen on 03/28/20. NOTE Subjective: Patient continues to complain of neck swelling of the left side. Patient denied fever, chills, nausea, vomiting, diarrhea Objective: GENERAL APPEARANCE: NAD HEENT: no scleral icterus, no JVD, EOMI, mild swelling of the left part of the neck, nontender. No palpable cervical, axillary, or supraclavicular lymphadenopathy CARDIOVASCULAR: S1S2 LUNGS: CTA ABDOMEN: soft & not tender w palpitation MUSCULOSKELETAL: no cyanosis, no swelling INTEGUMENT: no generalized palor NEUROLOGICAL: cranial nerve function from 2-12 intact intact, follows commands, speech not dysarthric ASSESSMENT and plan Patient is a 74 year old female with ESRD on hemodialysis who presented to [facility] with worsening left sided neck pain and difficulty swallowing felt to have a dental infection and failed outpatient oral antibiotic therapy. The patient received a CT of the neck w/ contrast and head without. Imaging did not demonstrate any findings consistent with dental abscess. There was noted to be innumerable thyroid nodules. However, review of patient medical records shows she had similar neck pain back in November 2019 at which time she received CT imaging which demonstrated thyroid nodules on the left. During hospital stay ENT consulted patient. Patient was found to have goiter. Patient will need thyroid biopsy to rule out thyroid cancer. TSH within normal limit. Recommended thyroid biopsy in the outpatient settings. Left sided neck and jaw pain During hospital stay ENT consulted patient. Patient was found to have goiter. Patient will need thyroid biopsy to rule out thyroid cancer. TSH within normal limit. Recommended thyroid biopsy in the outpatient settings However blood culture come back positive for gram-positive cocci in clusters. I repeated blood culture. There is concern for contamination patient does not have leukocytosis, afebrile Continue antibiotics for now Thyroid Nodules on CT imaging Patient received CT neck at [facility] which demonstrated innumerable thyroid nodules. Review of the patients medical record shows that she had a similar finding in November 2019 which showed multiple hypodense thyroid nodules measuring up to 9 mm as well as dental caries and periodontal disease. At the time the patient did have a follow-up Thyroid ultrasound showing multinodular thyroid gland with multiple cyst appearing structure. However there was a hypoechoic, partially solid appearing left inferior thyroid lobe nodule noted . Dr. Jackson will proceed with fine-needle biopsy in the outpatient settings. 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 Likely secondary to ESRD Nephrology team follows her Diabetes Mellitus Type II Detemir 40 units BID Sliding scale insulin Consistent carb diet HTN Continue home antihypertensives GERD Continue protonix Hyperlipidemia Continue statin Allergies Continue Claritin Prophylaxis -Heparin SQ VS,Fishbone, I+O VS, Fishbone, I+O Laboratory Tests 03/28/20 05:53 Vital Signs Date Time Temp Pulse Resp B/P (MAP) Pulse Ox O2 Delivery O2 Flow Rate FiO2 03/28/20 08:17 68 119/55 03/28/20 06:00 97.5 18 100 Room Air I&O- Last 24 Hours up to 6 AM 03/28/20 06:00 Intake Total 1010 ml Output Total 1625 ml Balance -615 ml JADE MOBLEY DO Mar 28, 2020 11:03
[2020-03-28] MEDS ORDERED: DARBEPOETIN 100 MCG/0.5 ML *DIALYSIS* SYRINGE (J0882) IV SCH (13:00)
--- NOTE | 2020-03-28 13:51 | IPN ---
DATE: 03/28/2020 SUBJECTIVE: Maryann is seen and examined this morning at the bedside. She complains of vomiting. She was dialyzed yesterday with 1500 mL of fluid removed. She also complains of pedal edema and neck swelling on the left side. She remains afebrile. Temperature 97.5, pulse 66, respiratory rate 18, blood pressure 119/55, saturating 100% on room air. Intake yesterday was 1 liter. Dialysis removed 1500. Urine output was 900, net negative 1340. Weight in the bed scale today is 67.5 kg. GENERAL: Patient is seen sitting up at the edge of the bed, legs dangling. Elderly female in no apparent distress. Extraocular muscles are intact. Jugular veins are not elevated. There is a little bit of swelling on the left neck. It is nontender. CARDIAC: s1, s2. There is pedal edema. LUNGS: Clear to auscultation bilaterally. No crackle or rale. ABDOMEN: Soft and nontender. EXTREMITIES: There is a right arm fistula, which is patent. There is a dialysis catheter in the right chest wall. There is no cyanosis. There is pedal edema. SKIN: Dry and warm to touch. NEUROLOGIC: She is at baseline mentation, oriented times three. Interactive, conversational. LABORATORY DATA: White count 7.1, hemoglobin 10.1. Sodium 131, potassium 4.4. Blood culture from March 27: One set gram-positive cocci in cluster. Repeat blood cultures March 28 times two are pending. INPATIENT MEDICATIONS: She is on intravenous (IV) clindamycin every 8 hours. Remainder of medications is unchanged from prior. PROBLEMS: 1. End-stage renal disease, on hemodialysis on Thursday, , Thursday schedule. She will be dialyzed tomorrow with goal fluid removal of about 2 liters as tolerated by her hemodynamics. Her electrolytes and volume status are acceptable. Her Perm-A-Cath is being used, and she is following up with vascular surgery for her fistula issues as an outpatient. 2. Chronic anemia secondary to renal failure. Hemoglobin is 10.1, which is optimal, and Aranesp is ordered with dialysis. 3. Hypertension. Blood pressures are well controlled, and she continues on amlodipine, losartan, and metoprolol. No changes are being made today. 4. Positive blood culture times one set, gram-positive cocci in cluster, possible contamination. Repeat cultures were sent and pending. She is presently on clindamycin, and antimicrobials are managed as per primary team. 5. Multiple thyroid nodules. I discussed the patient's thyroid imaging with her and advised her that she will need to followup as outpatient with ears, nose, and throat (ENT) for biopsy. CEFERINO
[2020-03-28 14:00] VITALS: BP 133/63
[2020-03-28] MEDS: MAGIC MOUTHWASH SUSPENSION BTL SS PRN (18:31)
[2020-03-28 22:00] VITALS: BP 134/54
[2020-03-29] MEDS: CLINDAMYCIN 600 MG in IV 1 EA IV SCH (04:26)
[2020-03-29] MEDS: HEPARIN SOD (PORCINE) 5000UNITS/ML 1ML VIAL/SYRINGE SQ SCH (05:22)
[2020-03-29 06:00] VITALS: BP 104/47
[2020-03-29 06:30] LABS: HEMATOCRIT 27.8 % (36.0-47.0); MEAN CORPUSCULAR HEMOGLOBIN 29.5 pg (27.0-33.0); MEAN CORPUSCULAR HGB CONC 32.4 g/dl (32.0-36.5); MEAN CORPUSCULAR VOLUME 91.1 fl (80.0-96.0); PLATELET COUNT, AUTOMATED 160 10^3/uL (150-450); RED BLOOD COUNT 3.05 10^6/uL (4.00-5.40); WHITE BLOOD COUNT 7.1 10^3/uL (4.0-10.0)
[2020-03-29] MEDS: ATORVASTATIN 20 MG TAB PO SCH (06:48)
[2020-03-29] MEDS: ACETAMINOPHEN 650MG ER TAB (TYLENOL ARTHRITIS) PO PRN (06:49)
[2020-03-29] MEDS: ASPIRIN 81 MG ENTERIC TAB PO SCH (06:49)
[2020-03-29] MEDS: LORATADINE 10 MG TAB PO SCH (06:49)
[2020-03-29 06:50] LABS: CALCIUM LEVEL 8.5 MG/DL (8.8-10.2); GLOMERULAR FILTRATION RATE 11.6 (>39); POTASSIUM SERUM 4.1 MEQ/L (3.5-5.1)
[2020-03-29] MEDS: METOPROLOL TART 25 MG TABLET PO SCH (06:50)
[2020-03-29] MEDS: PANTOPRAZOLE 40MG TAB (PROTONIX) PO SCH (06:50)
[2020-03-29] MEDS: LEVEMIR (INSULIN DETEMIR) 1 UNITS/0.01ML SC SCH (07:15)
[2020-03-29] MEDS: HumaLOG INSULIN (NovoLOG) PER UNIT SC SCH ×2 (07:30→11:56)
[2020-03-29 08:20] VITALS: BP 133/56
[2020-03-29] MEDS: amLODIPine 10 MG TAB PO SCH (08:20)
[2020-03-29] MEDS: LOSARTAN 50MG TABLET PO SCH (08:20)
[2020-03-29] MEDS ORDERED: LIDOCAINE 1% MDV 20ML VIAL As Ordered ONE (11:03)
[2020-03-29 11:27] VITALS: BP 144/65
--- NOTE | 2020-03-29 17:33 | REP ---
INDICATION: FNA thyroid nodules. COMPARISON: None. TECHNIQUE: The procedure was performed under the direct supervision of Dr. Pinzon. The risks and benefits of the procedure were explained to the patient and informed consent was obtained. The left thyroid nodule was localized using ultrasound guidance. The skin was prepped and draped in a sterile fashion. 1% lidocaine was used as a local anesthetic. Using ultrasound guidance 4 fine-needle aspirations were obtained using 25 gauge needles. All samples were sent to the lab for analysis. FINDINGS: None IMPRESSION: Technically successful ultrasound-guided left thyroid biopsy. <Electronically signed by Mat Ty > 03/29/20 [id number] <Electronically signed by Edgard Pinzon > 03/29/20 [id number]
== END 2020-03-29 12:18 | disposition home or self-care (01) | DRG 643 ==
LOC: M MSPAV 23:00
PROVIDERS: ADMIT Internal Medicine; ATTEND Internal Medicine
PROC: 5A1D70Z Performance of Urinary Filtration, Intermittent, Less than 6 Hours Per Day (ICD-10-PCS; principal; 2020-03-27)
PROC: 0G9G3ZX Drainage of Left Thyroid Gland Lobe, Percutaneous Approach, Diagnostic (ICD-10-PCS; 2020-03-29)
DX: E04.2 Nontoxic multinodular goiter (principal); N18.6 End stage renal disease; I12.0 Hypertensive chronic kidney disease with stage 5 chronic kidney disease or end stage renal disease; N25.81 Secondary hyperparathyroidism of renal origin; E11.22 Type 2 diabetes mellitus with diabetic chronic kidney disease; E11.40 Type 2 diabetes mellitus with diabetic neuropathy, unspecified; M06.9 Rheumatoid arthritis, unspecified; E55.9 Vitamin D deficiency, unspecified; K21.9 Gastro-esophageal reflux disease without esophagitis; M81.0 Age-related osteoporosis without current pathological fracture; D63.1 Anemia in chronic kidney disease; K02.9 Dental caries, unspecified; E87.5 Hyperkalemia; E78.5 Hyperlipidemia, unspecified; Z99.2 Dependence on renal dialysis; Z79.82 Long term (current) use of aspirin; Z79.4 Long term (current) use of insulin; Z79.899 Other long term (current) drug therapy; Z88.0 Allergy status to penicillin; Z88.1 Allergy status to other antibiotic agents

== ENCOUNTER → 2020-04-11 | Outpatient (REF) | payer MEDICARE ==
[~2020-04-11] MED LIST changes: +AMLO1TAB25 PO; +ASPI-161 PO; +CETI-24 PO; +CLIN150C14 PO; +INSUDET SC; +LOSA50TA88 PO; +METO25TA4 PO; +PATIENT COMMENT
== END ==
LOC: M LAB REF 15:09
PROVIDERS: ATTEND Otolaryngology
DX: E04.2 Nontoxic multinodular goiter (principal)

== ENCOUNTER → 2020-05-04 | Outpatient (CLI) | payer MEDICARE | LOC: M LABSMTC 09:32 | PROVIDERS: ATTEND Anesthesiology | DX: Z01.812 Encounter for preprocedural laboratory examination (principal); Z20.828 Contact with and (suspected) exposure to other viral communicable diseases ==

== ENCOUNTER 2020-05-09 09:53 | Day surgery (SDC) | payer MEDICARE ==
[~2020-05-09] VITALS: Ht 157.5 cm; Wt 66.6 kg
[~2020-05-09 09:53] MED LIST changes: +D5W/0.2% SODIUM CHLORIDE 1,000 ML IV ONE; +VANCOMYCIN HCL 1,000 MG, VIAL MATE ADAPTER 1 EACH in D5W 250 ML IV SCH
[2020-05-09 10:40] LABS: HEMATOCRIT 36.3 % (36.0-47.0); HEMOGLOBIN 11.3 g/dl (12.0-15.5); MEAN CORPUSCULAR HEMOGLOBIN 31.2 pg (27.0-33.0); MEAN CORPUSCULAR HGB CONC 31.1 g/dl (32.0-36.5); MEAN CORPUSCULAR VOLUME 100.3 fl (80.0-96.0); PLATELET COUNT, AUTOMATED 149 10^3/uL (150-450); RED BLOOD COUNT 3.62 10^6/uL (4.00-5.40); WHITE BLOOD COUNT 7.8 10^3/uL (4.0-10.0)
[2020-05-09 10:59] LABS: CREATININE FOR GFR 3.38 MG/DL (0.55-1.30); GLOMERULAR FILTRATION RATE 14.1 (>39); POTASSIUM SERUM 4.4 MEQ/L (3.5-5.1)
[2020-05-09] MEDS ORDERED: LIDOCAINE W/EPINEPHRINE 1% 20ML VIAL As Ordered ONE (11:11)
[2020-05-09] MEDS ORDERED: HEPARIN SOD (PORCINE) 5000UNITS/ML 1ML VIAL/SYRINGE As Ordered ONE (11:11)
[2020-05-09] MEDS ORDERED: LIDOCAINE 2% W/EPINEPHRINE 20ML VIAL **PRES FREE As Ordered ONE (11:13)
[2020-05-09] MEDS ORDERED: propofoL 200 MG/20 ML VIAL As Ordered ONE (11:52)
[2020-05-09] MEDS ORDERED: LIDOCAINE 2% 100MG/5ML SDV (FOR ANES.) As Ordered ONE (11:52)
[2020-05-09] MEDS ORDERED: MIDAZOLAM INJ 2MG/2ML VIAL (J2250 PER 1MG) As Ordered ONE (11:52)
[2020-05-09] MEDS ORDERED: fentaNYL 100 MCG/2 ML INJECTION (J3010) As Ordered ONE (11:53)
[2020-05-09] MEDS ORDERED: METOPROLOL TART 25 MG TABLET PO ONE (12:00)
[2020-05-09] MEDS ORDERED: dexameTHASONE 4 MG/ML 1ML VIAL (J1100 PER 1MG) As Ordered ONE (12:20)
[2020-05-09] MEDS ORDERED: ePHEDrine SULFATE 25 MG/5 ML(5MG/ML) SYRINGE As Ordered ONE (12:23)
[2020-05-09] MEDS ORDERED: ONDANSETRON 4MG/2ML VIAL As Ordered ONE (12:55)
--- NOTE | 2020-05-09 14:09 | ROOPDOC ---
[facility] Report Of Operation Report of Operation DATE OF PROCEDURE: 05/09/20 PREPROCEDURE DIAGNOSES: End-stage renal disease with right brachial basilic AV fistula too deep for cannulation POSTPROCEDURE DIAGNOSES: Same PROCEDURE: Right basilic vein transposition SURGEON: Mercy Soler MD ANESTHESIA: General anesthesia and local INDICATION FOR PROCEDURE: This is a very pleasant 74-year-old patient with end- stage renal disease currently dialyzing with a PermCath who requires transposition of her right radial basilic AV fistula to make it more superficial for dialysis cannulation. Risks benefits and alternatives were explained and the patient was agreeable to proceed. Informed consent was obtained. REPORT OF OPERATION: The patient was brought to the OR in stable condition and general anesthesia and antibiotics were administered without complication. Her right upper extremity was prepped and draped in a sterile fashion. A timeout was performed. Local anesthesia was administered to skin and subcutaneous tissue over the basilic vein. An incision was made with the skin knife and carried down to the subcutaneous tissue with Bovie cautery. The basilic vein was identified and skeletonized proximal and distally within the incision. Branching nerves were preserved. Branches of the vein were suture ligated and divided. Once the vein was mobilized completely within our incision, a clamp was placed proximally and distally and the vein was transected on a bevel. It was then tunneled thro ugh the subcutaneous tissue over the bicep after mobilizing it out from underneath the nerve structures. We then did a re-anastomosis with 6-0 Prolene taking care not to narrow the anastomosis. Following this there was excellent flow on Doppler through the fistula. Bovie cautery was used for hemostasis and the incision was thoroughly irrigated. The disc space was closed with interr upted 3-0 Vicryl [id number] sutures. The fascia was closed in 2 layers with 3-0 Vicryl suture. The skin was closed with running subcuticular Monocryl suture. Mastisol and Steri-Strips replace the length of the incision after cleaning and driving the skin. Dry gauze and Tegaderms were placed as a final dressing. The patient was allowed to awaken from anesthesia and taken to rec overy in stable condition. She tolerated the procedure well. ESTIMATED BLOOD LOSS: Approximately 25 mL. COMPLICATIONS: None. PLAN: We will see the patient back in a week to check her incision. Okay to remove Tegaderm and wet gauze after 48 hours, but the Steri-Strips over incision intact for 1 week to help wounds to heal. Elevate arm to reduce swelling. Continue to use squeeze ball to help mature fistula. No lifting greater than 5 pounds or strenuous exercise right upper extremity until incision is completely healed. We appreciate the opportunity to participate in care of this patient. MERCY SOLER MD May 09, 2020 14:09
[2020-05-09] MEDS ORDERED: OXYC1TAB23 PO (14:12)
[2020-05-09] MEDS ORDERED: ONDANSETRON 4MG/2ML VIAL IV PRN (14:30)
[2020-05-09] MEDS ORDERED: fentaNYL 100 MCG/2 ML INJECTION (J3010) IV PRN (14:30)
[2020-05-09] MEDS ORDERED: NS 1,000 ML IV SCH (14:30)
[2020-05-09] MEDS ORDERED: oxyCODONE 5MG TAB PO PRN (14:30)
[2020-05-09 15:20] VITALS: BP 137/62
== END 2020-05-09 15:40 | disposition home or self-care (01) ==
LOC: M SDC 09:53
PROVIDERS: ATTEND Surgery Vascular Surgery
DX: N18.6 End stage renal disease (principal); I12.0 Hypertensive chronic kidney disease with stage 5 chronic kidney disease or end stage renal disease; E11.22 Type 2 diabetes mellitus with diabetic chronic kidney disease; E11.40 Type 2 diabetes mellitus with diabetic neuropathy, unspecified; E78.00 Pure hypercholesterolemia, unspecified; M12.9 Arthropathy, unspecified; Z79.82 Long term (current) use of aspirin; Z79.899 Other long term (current) drug therapy; Z88.0 Allergy status to penicillin; Z88.1 Allergy status to other antibiotic agents; Z90.710 Acquired absence of both cervix and uterus; Z99.2 Dependence on renal dialysis
CPT/HCPCS: 36415; 36819; 80048; 85027; J1100; J1644; J2250; J2405; J3010; J3370

== ENCOUNTER 2020-09-06 15:56 | Inpatient (IN) | payer MEDICARE ==
[~2020-09-06 15:56] MED LIST changes: -ACET-908 PO; +ACET-910 PO; -CLIN150C14 PO; +CLIN150C15 PO; -D5W/0.2% SODIUM CHLORIDE 1,000 ML IV ONE; -VANCOMYCIN HCL 1,000 MG, VIAL MATE ADAPTER 1 EACH in D5W 250 ML IV SCH
[2020-09-06 16:20] VITALS: BP 214/81
[2020-09-06 16:45] LABS: BASO # 0.1 10^3/uL (0.0-0.2); BASO % 0.7 % (0.0-1.0); EOS # 0.1 10^3/uL (0.0-0.5); HEMATOCRIT 32.3 % (36.0-47.0); HEMOGLOBIN 10.6 g/dl (12.0-15.5); LYMPH # 2.4 10^3/uL (1.5-5.0); LYMPH % 30.6 % (24.0-44.0); MEAN CORPUSCULAR HEMOGLOBIN 31.1 pg (27.0-33.0); MEAN CORPUSCULAR HGB CONC 32.8 g/dl (32.0-36.5); MEAN CORPUSCULAR VOLUME 94.7 fl (80.0-96.0); MONO # 0.6 10^3/uL (0.0-0.8); MONO % 8.1 % (2.0-8.0); NEUTROPHILS # 4.6 10^3/uL (1.5-8.5); NEUTROPHILS % 59.2 % (36.0-66.0); PLATELET COUNT, AUTOMATED 193 10^3/uL (150-450); RED BLOOD COUNT 3.41 10^6/uL (4.00-5.40); WHITE BLOOD COUNT 7.7 10^3/uL (4.0-10.0)
--- NOTE | 2020-09-06 16:48 | REP ---
INDICATION: CVA - Nursing interventions must not delay CT. COMPARISON: None. TECHNIQUE: Axial CT images with multiplanar reformations. FINDINGS: No acute bleed or acute large vessel territorial infarct. Ventricles, cisterns and sulci are within normal limits. No mass effect or midline shift. No abnormal fluid collections. Paranasal sinuses and mastoid air cells are clear. IMPRESSION: No acute findings. <Electronically signed by Irving Mccarthy > 09/06/20 [id number]
[2020-09-06] MEDS ORDERED: VITMTA PO (16:51)
--- NOTE | 2020-09-06 17:00 | REP ---
INDICATION: CVA. COMPARISON: 12/18/2019. TECHNIQUE: SINGLE PORTABLE AP VIEW OF THE CHEST WAS PERFORMED. FINDINGS: No acute infiltrate is seen. There is mild cardiomegaly. There is mild calcification of thoracic aorta. The mediastinal silhouette is unremarkable. Right central venous catheter is seen with the tip in the right atrium. IMPRESSION: NO ACUTE PULMONARY DISEASE.Mild cardiomegaly. <Electronically signed by Edgard Pinzon > 09/06/20 [id number]
[2020-09-06 17:12] LABS: CK-MB VALUE MASS 3.2 NG/ML (<3.6); CREATININE FOR GFR 1.63 MG/DL (0.55-1.30); GLOMERULAR FILTRATION RATE 32.7 (>39); MB/CK RELATIVE INDEX 1.5 (< OR =4); POTASSIUM SERUM 3.3 MEQ/L (3.5-5.1); TROPONIN I 0.05 NG/ML (< 0.10)
[2020-09-06] MEDS ORDERED: METOCLOPRAMIDE INJ 10MG/2ML VIAL (J2765 PER 1) IV ONE (18:55)
[2020-09-06] MEDS ORDERED: ACETAMINOPHEN 500 MG TAB PO PRN (18:55)
[2020-09-06] MEDS ORDERED: KETOROLAC 30 MG/ML 1ML VIAL IV ONE (18:55)
[2020-09-06] MEDS ORDERED: DEXTROSE 50% 50 ML SYRINGE IV PRN (19:05)
[2020-09-06] MEDS ORDERED: GLUCOSE 4GM CHEW TABLET PO PRN (19:05)
[2020-09-06] MEDS ORDERED: GLUCAGON INJ 1MG VIAL SC PRN (19:05)
--- NOTE | 2020-09-06 19:33 | HPEPDOC ---
General Date of Admission 09/06/20 Date of Service: Sep 06, 2020 Chief Complaint The patient is a 74-year-old female admitted with a reason for visit of Weakness. History of Present Illness 74 year old female with PMH of ESRD, DM and Hypertension presented to ED for Left upper and lower extremity weakness which she first noticed at about 2:30 am today. She woke up from sleep to go to the bathroom and noticed that she could not move the left side of the body. She could not stand up even with her helping to make to the bathroom. She had to use a pot in bed. She also had a severe left sided headache and left neck pain which was throbbing in nature. She took some tylenol and tried to relax. SHe reports that after the tylenol she did feel a little better and was able to go for her routine HD. she was able to walk to the car and then from the car to the HD unit though she was unsteady on her feet. She still continued to have some left sided weakness to presented to the ED after her HD. On my interview her dominant complaint was her left sided hemicranial pain which is in fact chronic going on for at least 2 to 3 years. The pain involve her left forehead till the midline then her left half of the head including the back of the head and left ear and back of left ear down to the neck and extends forward up to the midline of the neck and the left lower jaw just below the ear. Does not involve the left cheek or chin. The pain is throbbing in nature and is so bad that she cannot lay on the left side. She reported this pain has been really bad last 2 days and rated the pain 10/10 this morning but now a little better as she took tylenol.. It seems the pain is constant with some really bad days when she takes tylenol which helps with the pain but the pain comes back when the effect of medicine wears off. She denies any associated phobophobia or nausea. Her left sided upper and lower extremity weakness is better though still not completely gone. She is admitted for evaluation for TIA/stroke vs hemiplegic migraine. Home Medications Scheduled Aspirin (Aspirin EC) 81 Mg Tablet.dr, 81 MG PO DAILY, (Reported) Insulin Detemir (Levemir) 100 Unit/1 Ml Vial, 25 UNITS SC BID, (Reported) Losartan Potassium (Losartan Potassium) 50 Mg Tablet, 50 MG PO DAILY, (Reported) Multivitamins (Thera M Plus Tablet) 1 Each Tablet, 1 TAB PO DAILY, (Reported) Scheduled PRN Acetaminophen (Acetaminophen) 325 Mg Tablet, 650 MG PO Q8H PRN for PAIN, (Reported) Cetirizine HCl (Cetirizine HCl) 10 Mg Tablet, 10 MG PO DAILY PRN for ALLERGIES, (Reported) Allergies Coded Allergies: amoxicillin (Verified Allergy, Severe, THROAT CLOSES, 03/27/20) Penicillins (Verified Allergy, Unknown, 03/27/20) cefuroxime (Verified Allergy, Unknown, 03/27/20) Past Medical History Medical History End Stage Renal Disease on dialysis Thursday, , Thursday Hypertension 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 Dental carries and periodontic disease. Surgical History Hysterectomy Tonsillectomy Upper and Lower Endoscopy Bilateral Carpal Tunnel Release AV Fistula Family History Significant Family History: Diabetes (sister) Review of Systems Constitutional: Denies: Chills, Fever, Night Sweats Eyes: Denies: Pain, Vision change ENT: Reports: Head Aches, Ear Pain Skin: Denies: Rash, Lesions, Breakdown Pulmonary: Denies: Dyspnea, Cough Cardiovascular: Denies: Chest Pain, Palpitations, Orthopnea, Lt Headedness Gastrointestinal: Denies: Nausea, Vomiting, Abdominal Pain, Diarrhea Genitourinary: Denies: Dysuria, Frequency, Incontinence Hematologic: Denies: Bruising, Bleeding Excessively Musculoskeletal: Reports: Neck Pain Neurological: Reports: Weakness, Incoordination Physical Examination General Exam: Positive: Alert, Cooperative, No Acute Distress Eye Exam: Positive: PERRLA, Conjunctiva & lids normal, EOMI; Negative: Sclera icteric ENT Exam: Positive: Atraumatic, Mucous membr. moist/pink, Pharynx Normal Neck Exam: Positive: Supple; Negative: JVD, thyromegaly Chest Exam: Positive: Clear to auscultation, Normal air movement Heart Exam: Positive: Rate Normal, Regular Rhythm, Normal S1, Normal S2; Negative: Murmurs, Rubs Abdomen Exam: Positive: Normal bowel sounds, Soft; Negative: Tenderness, Hepatospenomegaly Extremity Exam: Negative: Clubbing, Cyanosis, Edema Neuro Exam: Positive: Normal Speech, Strength at 5/5 X4 ext, Normal Tone Psych Exam: Positive: Memory Intact, Oriented x 3 Vital Signs Vital Signs Date Time Temp Pulse Resp B/P (MAP) Pulse Ox O2 Delivery O2 Flow Rate FiO2 09/06/20 16:20 98.6 89 16 214/81 100 Room Air Laboratory Data Labs 24H Laboratory Tests 2 09/06/20 16:27: Immature Granulocyte % (Auto) 0.4, Neutrophils (%) (Auto) 59.2, Lymphocytes (%) (Auto) 30.6, Monocytes (%) (Auto) 8.1H, Eosinophils (%) (Auto) 1.0, Basophils (%) (Auto) 0.7, Neutrophils # (Auto) 4.6, Lymphocytes # (Auto) 2.4, Monocytes # (Auto) 0.6, Eosinophils # (Auto) 0.1, Basophils # (Auto) 0.1, Nucleated Red Blood Cells % (auto) 0.0, Activated Partial Thromboplast Time 33.0, Anion Gap 7L, Glomerular Filtration Rate 32.7L, Calcium Level 9.0, Total Creatine Kinase 214H, Creatine Kinase MB 3.2, Creatine Kinase MB Relative Index 1.50, Troponin I 0.05 CBC/BMP Laboratory Tests 09/06/20 16:27 Microbiology Microbiology 09/06/20 Respiratory Virus Panel (PCR) (JULIA), Received Pending Assessment/Plan 74 year old female with PMH of ESRD, DM and Hypertension presented to ED for Left upper and lower extremity weakness which she first noticed at about 2:30 am today. She woke up from sleep to go to the bathroom and noticed that she could not move the left side of the body. She could not stand up even with her helping to make to the bathroom. She had to use a pot in bed. She also had a severe left sided headache and left neck pain which was throbbing in nature. She took some tylenol and tried to relax. SHe reports that after the tylenol she did feel a little better and was able to go for her routine HD. she was able to walk to the car and then from the car to the HD unit though she was unsteady on her feet. She still continued to have some left sided weakness to presented to the ED after her HD. On my interview her dominant complaint wa her left sided hem icranial pain which is in fact chronic going on for at least 2 to 3 years. The pain involve her left forehead till the midline then her left half of the head including the back of the head and left ear and back of left ear down to the neck and extends forward up to the midline of the neck and the left lower jaw just below the ear. Does not involve the left cheek or chin. The pain is throbbing in nature and is so bad that she cannot lay on the left side. She reported this pain has been really bad last 2 days. It seems the pain is constant with some really bad days when she takes tylenol which helps with the pain but the pain comes back when the effect of medicine wears off. She denies any associated phobophobia or nausea. Her left sided upper and lower extremity weakness is better though still not completely gone. She is admitted for evaluation for TIA/stroke vs hemiplegic migraine. Left sided weakness now seems to have resolved clinically though subjectively patietn still complains of weakness. possible TIA Rule out [place] In view of her associated head ache the other differential is hemiplegic migraine. Will get MRI and MRA of brain and carotid dopplers continue asa, start statin. Left sided hemicranial pain chronic could be migraine the distribution and character does not fit with trigeminal neuralgia or occipital neuralgia. will give toradol, metoclopromide and tylenol. ESRD had HD today () will consult nephro tomorrow if patient is still here till thursday. DM Hypoglycemia 49 in lab work. Asymptomatic. Patient reports she has not taken anything all day. lispro AC and HS. will not give levemir at present. Hypertension allow permissive hypertension till we rule in or out stroke continue losartan hydralazine prn if SBP> 180 Plan / VTE VTE Prophylaxis Ordered?: Yes JESSIE PICKARD MD Sep 06, 2020 17:51
[2020-09-06 20:15] VITALS: BP 197/85
[2020-09-06] MEDS: **hydrALAZINE HCL** 25 MG TAB PO SCH ×2 (20:15→23:46)
[2020-09-06] MEDS ORDERED: HumaLOG INSULIN (NovoLOG) PER UNIT SC SCH (21:00)
[2020-09-06] MEDS ORDERED: ATORVASTATIN 20 MG TAB PO SCH (21:00)
[2020-09-06] MEDS ORDERED: LEVEMIR (INSULIN DETEMIR) 1 UNITS/0.01ML SC SCH (21:00)
--- NOTE | 2020-09-06 21:36 | REPVR ---
PROCEDURE INFORMATION: Exam: US Duplex Bilateral Extracranial Arteries Exam date and time: 09/06/2020 7:28 PM Age: 74 years old Clinical indication: Other: TIA TECHNIQUE: Imaging protocol: Real-time Duplex ultrasound scan of the bilateral carotid and vertebral arteries combining mcallister scale, color Doppler and spectral waveform analysis. Bilateral exam. COMPARISON: Thyroid, ST head+neck US 12/19/2019 6:21 AM FINDINGS: Right common carotid artery: Unremarkable. No occlusion or stenosis. Waveforms are normal. Right internal carotid artery: Mild plaque without significant stenosis. No occlusion. Waveforms are normal. Right ICA/CCA ratio: Normal at 0.8 Right external carotid artery: No stenosis in the origin. Right vertebral artery: Unremarkable. Antegrade flow. Left common carotid artery: Unremarkable. No occlusion or stenosis. Waveforms are normal. Left internal carotid artery: Mild plaque without significant stenosis. No occlusion. Waveforms are normal. Left ICA/CCA ratio: Normal at 0.8 Left external carotid artery: No stenosis in the origin. Left vertebral artery: Unremarkable. Antegrade flow. IMPRESSION: No carotid arterial stenosis. REFERENCES: SRU CRITERIA. The degree of internal carotid artery stenosis is based on criteria defined by the Society of Radiologists in Ultrasound (SRU). Normal is no stenosis. Mild is less than 50% stenosis. Moderate is 50-69% stenosis. Severe is greater than 69% stenosis to near occlusion. Near occlusion is a markedly narrowed lumen. Total occlusion is no detectable patent lumen. Electronically signed by: Taqueria Horvath On 09/06/2020 21:35:42 PM
[2020-09-06 21:55] VITALS: BP 168/60
[2020-09-06] MEDS: HEPARIN SOD (PORCINE) 5000UNITS/ML 1ML VIAL/SYRINGE SC SCH (22:28)
--- NOTE | 2020-09-06 22:40 | REPVR ---
PROCEDURE INFORMATION: Exam: MR Head Without Contrast Exam date and time: 09/06/2020 9:54 PM Age: 74 years old Clinical indication: Weakness, extremity; Left; Additional info: Left side weak TECHNIQUE: Imaging protocol: MR of the head without contrast. COMPARISON: CT Head without contrast 09/06/2020 4:27 PM FINDINGS: Brain: There is mild cerebral volume loss. No signs of a recent infarction or hemorrhage. No mass or midline shift. Cerebral ventricles: Normal. No ventriculomegaly. Bones/joints: Unremarkable. Paranasal sinuses: Normal as visualized. No acute sinusitis. Mastoid air cells: Normal as visualized. No mastoid effusion. Orbital cavity: Unremarkable. Soft tissues: Unremarkable. IMPRESSION: Mild cerebral volume loss. No acute intracranial abnormality. Electronically signed by: Taqueria Horvath On 09/06/2020 22:41:07 PM
--- NOTE | 2020-09-06 22:46 | REPVR ---
PROCEDURE INFORMATION: Exam: MRA Head Without Contrast; Arteriography Exam date and time: 09/06/2020 9:54 PM Age: 74 years old Clinical indication: Weakness; Additional info: Left side weak TECHNIQUE: Imaging protocol: Magnetic resonance angiography head without contrast. Exam focused on the arteries. COMPARISON: CT Head without contrast 09/06/2020 4:27 PM FINDINGS: ANTERIOR CIRCULATION: Right internal carotid artery: Possible 2 mm saccular aneurysm arising from the right supraclinoid ICA at its bifurcation (image 90 of series 901). No ICA stenosis or occlusion. Right middle cerebral artery: No occlusion or significant stenosis. No aneurysm. Right anterior cerebral artery: No occlusion or significant stenosis. No aneurysm. Left internal carotid artery: Intracranial segment is patent with no significant stenosis. No aneurysm. Left middle cerebral artery: No occlusion or significant stenosis. No aneurysm. Left anterior cerebral artery: No occlusion or significant stenosis. No aneurysm. POSTERIOR CIRCULATION: Right vertebral artery: No occlusion or significant stenosis. No aneurysm. Left vertebral artery: No occlusion or significant stenosis. No aneurysm. Basilar artery: No occlusion or significant stenosis. No aneurysm. Right posterior cerebral artery: No occlusion or significant stenosis. No aneurysm. Left posterior cerebral artery: No occlusion or significant stenosis. No aneurysm. IMPRESSION: 1. 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 2. Otherwise unremarkable MRA. No other significant stenosis or vascular occlusion. Electronically signed by: Taqueria Horvath On 09/06/2020 22:47:09 PM
[2020-09-06] MEDS ORDERED: SUMAtriptan SUCCINATE 6 MG/0.5 ML VIAL SC PRN (23:05)
[2020-09-06] MEDS: ACETAMINOPHEN 500 MG TAB PO SCH (23:05)
[2020-09-07] MEDS: **hydrALAZINE HCL** 25 MG TAB PO SCH (05:52)
[2020-09-07 06:00] VITALS: BP 158/64
--- NOTE | 2020-09-07 06:04 | ECGEPIP ---
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
[2020-09-07 06:12] LABS: BASO # 0.1 10^3/uL (0.0-0.2); BASO % 0.9 % (0.0-1.0); EOS # 0.2 10^3/uL (0.0-0.5); EOS % 3.4 % (0.0-3.0); HEMATOCRIT 32.7 % (36.0-47.0); HEMOGLOBIN 10.9 g/dl (12.0-15.5); LYMPH # 2.6 10^3/uL (1.5-5.0); LYMPH % 39.8 % (24.0-44.0); MEAN CORPUSCULAR HEMOGLOBIN 31.2 pg (27.0-33.0); MEAN CORPUSCULAR HGB CONC 33.3 g/dl (32.0-36.5); MEAN CORPUSCULAR VOLUME 93.7 fl (80.0-96.0); MONO # 0.5 10^3/uL (0.0-0.8); MONO % 7.9 % (2.0-8.0); NEUTROPHILS # 3.1 10^3/uL (1.5-8.5); NEUTROPHILS % 47.7 % (36.0-66.0); PLATELET COUNT, AUTOMATED 182 10^3/uL (150-450); RED BLOOD COUNT 3.49 10^6/uL (4.00-5.40); WHITE BLOOD COUNT 6.5 10^3/uL (4.0-10.0)
[2020-09-07 06:32] LABS: HEMOGLOBIN A1c 5.9 %
[2020-09-07 06:44] LABS: CALCIUM LEVEL 8.8 MG/DL (8.8-10.2); CHOLESTEROL RISK RATIO 3.464 (<5); CREATININE FOR GFR 2.83 MG/DL (0.55-1.30); GLOMERULAR FILTRATION RATE 17.3 (>39); POTASSIUM SERUM 3.9 MEQ/L (3.5-5.1)
[2020-09-07] MEDS: HumaLOG INSULIN (NovoLOG) PER UNIT SC SCH ×3 (07:30→11:45)
[2020-09-07] MEDS: HEPARIN SOD (PORCINE) 5000UNITS/ML 1ML VIAL/SYRINGE SC SCH (08:26)
[2020-09-07] MEDS: ACETAMINOPHEN 500 MG TAB PO SCH (08:26)
[2020-09-07 08:31] VITALS: BP 127/73
[2020-09-07] MEDS ORDERED: LOSARTAN 50MG TABLET PO SCH (09:00)
[2020-09-07] MEDS ORDERED: ASPIRIN 81MG ENTERIC TABLET PO SCH (09:00)
[2020-09-07] MEDS ORDERED: ACET-683 PO (09:41)
[2020-09-07] MEDS ORDERED: INSUDET SC (09:42)
[2020-09-07] MEDS ORDERED: BAYE325T12 PO (11:38)
--- NOTE | 2020-09-07 12:41 | CR.PDOC ---
General Date of Consultation: Sep 07, 2020 Attending Physician: MARK ADAMS MD Consultation REASON FOR CONSULTATION/CHIEF COMPLAINT: ESRD management CHIEF COMPLAINT: weakness, headache HISTORY OF PRESENT ILLNESS: Nicanor Greenberg is a 74 YO F with history of ESRD on HD TuThurSa, HTN who presented to [facility] ED on 09/06/20 with complaint of left upper and lower extremity weakness and severe headache. She states that the pain woke her up from sleep approximately 2 AM and she was unable to ambulate. Soon thereafter she started having a severe left sided headache that was constant, throbbing, and caused her to have pain in her left jaw. She has had this issue before and saw ENT, who suggested it was a dental infection and has since had all of her teeth removed. She has been going to her regularly scheduled HD sessions and has been taking all of her medication as prescribed. She tried taking Tylenol for her headache but it did not help her pain. Today, on interview, she states that her weakness has resolved but her headache is still present. She underwent extensive CVA workup, including MRI/MRA Head, carotid ultrasound, head CT which were all essentially normal. PAST MEDICAL HISTORY: 1. End Stage Renal Disease on dialysis Thursday, , Thursday 2. Hypertension 3. 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 Rheumatoid Arthritis 5. GERD 6. Vitamin D Deficiency 7. Osteoporosis 8. 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 Chronic Back Pain 10. Dental Caries 11. Allergic rhinitis PAST SURGICAL HISTORY: 1. Hysterectomy 2. Tonsillectomy 3. Upper and Lower Endoscopy 4. Bilateral Carpal Tunnel Release 5. AV Fistula SOCIAL HISTORY: Patient lives at home with her . She ambulates with a wheelchair. She is a nonsmoker. She denies any IV or illicit drug use FAMILY HISTORY: Family history reviewed. Non-pertinent ALLERGIES: Please see below. REVIEW OF SYSTEMS: Constitutional: No Weight Change, No Fever, No Chills, No Night Sweats, No Fatigue, No Malaise ENT/Mouth: No Hearing Changes, No Ear Pain, No Nasal Congestion, No Sinus Pain, No Hoarseness, No sore throat, No Rhinorrhea, No Swallowing Difficulty Eyes: No Eye Pain, No Swelling, No Redness, No Foreign Body, No Discharge, No Vision Changes Cardiovascular: No Chest Pain, No SOB, No PND, No Dyspnea on Exertion, No Orthopnea, No Claudication, No Edema, No Palpitations Respiratory: No Cough, No Wheezing, No Dyspnea Gastrointestinal: No Nausea, No Vomiting, No Diarrhea, No Constipation, No Pain, No Heartburn, No Anorexia, No Dysphagia, No Hematochezia, No Melena Genitourinary: No Dysuria Musculoskeletal: No Arthralgias, No Myalgias, No Joint Swelling, No Joint Stiffness, No Back Pain, No Neck Pain Skin: No Skin Lesions, No Pruritis, No Hair Changes, No Breast/Skin Changes, No Nipple Discharge Neuro: Reports severe headache on left side of her head Psych: No Anxiety/Panic, No Depression, No Insomnia, No Personality Changes, No Delusions Heme/Lymph: No Bruising, No Bleeding, No Transfusions History, No Lymphadenopathy Endocrine: No Polyuria, No Polydipsia, No Temperature Intolerance HOME MEDICATIONS: Please see below. PHYSICAL EXAMINATION: VITAL SIGNS: see below GENERAL: alert and oriented, in no apparent distress, pleasant and conversant in full sentences. HEENT: PERRL, EOMI, Oral mucous membranes are moist without lesions. NECK: The patient has no noted JVD. No adenopathy is appreciated. No thyromegaly CHEST/LUNGS: Lungs are clear bilaterally without rhonchi, rales, or wheezes. There is no subcutaneous air appreciated. There is no tenderness to the chest wa ll. HEART: Regular rate and rhythm. No murmurs, rubs, or gallops are appreciated. Distal pulses are 2+. No carotid bruits appreciated. ABDOMEN: Soft, nontender, and nondistended. Bowel sounds are positive. No organomegaly is appreciated. No masses are appreciated. There are no peritoneal signs. There is no Hampton sign. EXTREMITIES: No peripheral edema. There is no focal long bone tenderness or d eformity. SKIN: The patients skin is warm and dry, without rashes or lesions. PSYCHIATRIC: AAO x 3, normal mood/affect NEUROLOGIC: The patient has 5/5 strength to the upper and lower extremities bila terally. Sensation is intact throughout. There are no deficits to the cranial nerves. LABORATORY DATA: See below. MICROBIOLOGY: Please see below. ASSESSMENT: This is a 74 YO F with history of ESRD on HD T/T/S, HTN who presents with LUE/LLE weakness now resolved and severe one-sided headache concerning for TIA vs complex migraine. PLAN: 1. TIA vs complex migraine: -CVA workup negative -Recommend referral to ENT and Neuro for further workup/management 2. ESRD on HD: Last HD yesterday () in outpatient setting -Continue outpatient HD schedule as prescribed after discharge today -Electrolytes WNL today 3. History of DM2 on insulin: -Patient's A1c found to be 5.9%, likely needs reduction in insulin dose as she was found to be hypoglycemic on admission -Reduce Levemir to 10U daily 4. HTN: -Continue Losartan DISPO: Discharge home today, continue with HD tomorrow in outpatient setting, follow up with ENT and Neuro Vital Signs/I&O Vital Signs Date Time Temp Pulse Resp B/P (MAP) Pulse Ox O2 Delivery O2 Flow Rate FiO2 09/07/20 06:00 98.1 83 17 158/64 (95) 95 Room Air I&O- Last 24 Hours up to 6 AM 09/07/20 06:00 Intake Total 150 ml Output Total 400 ml Balance -250 ml Laboratory Data Labs 24H Laboratory Tests 2 09/06/20 16:27: Immature Granulocyte % (Auto) 0.4, Neutrophils (%) (Auto) 59.2, Lymphocytes (%) (Auto) 30.6, Monocytes (%) (Auto) 8.1H, Eosinophils (%) (Auto) 1.0, Basophils (%) (Auto) 0.7, Neutrophils # (Auto) 4.6, Lymphocytes # (Auto) 2.4, Monocytes # (Auto) 0.6, Eosinophils # (Auto) 0.1, Basophils # (Auto) 0.1, Nucleated Red Blood Cells % (auto) 0.0, Activated Partial Thromboplast Time 33.0, Anion Gap 7L, Glomerular Filtration Rate 32.7L, Calcium Level 9.0, Total Creatine Kinase 214H, Creatine Kinase MB 3.2, Creatine Kinase MB Relative Index 1.50, Troponin I 0.05 09/06/20 22:01: Bedside Glucose (Misc Panel) 64L 09/06/20 23:27: Bedside Glucose (Misc Panel) 113H 09/07/20 05:58: Immature Granulocyte % (Auto) 0.3, Neutrophils (%) (Auto) 47.7, Lymphocytes (%) (Auto) 39.8, Monocytes (%) (Auto) 7.9, Eosinophils (%) (Auto) 3.4H, Basophils (%) (Auto) 0.9, Neutrophils # (Auto) 3.1, Lymphocytes # (Auto) 2.6, Monocytes # (Auto) 0.5, Eosinophils # (Auto) 0.2, Basophils # (Auto) 0.1, Nucleated Red Blood Cells % (auto) 0.0, Anion Gap 5L, Glomerular Filtration Rate 17.3L, Calcium Level 8.8, Estimated Mean Plasma Glucose 123H, Hemoglobin A1c 5.9, Triglycerides Level 104, Total Cholesterol 246H, LDL Cholesterol 154H, Non-HDL Cholesterol (LDL + VLDL) 175, Total HDL Cholesterol 71, Cholesterol/HDL Ratio 3.464 CBC/BMP Laboratory Tests 09/06/20 16:27 09/07/20 05:58 Microbiology Microbiology 09/06/20 Respiratory Virus Panel (PCR) (JULIA) - Final, Complete Allergies Coded Allergies: amoxicillin (Verified Allergy, Severe, THROAT CLOSES, 03/27/20) Penicillins (Verified Allergy, Unknown, 03/27/20) cefuroxime (Verified Allergy, Unknown, 03/27/20) Home Medications Scheduled Acetaminophen (Acetaminophen) 500 Mg Tablet, 1,000 MG PO BID, #100 Aspirin (Aspirin) 325 Mg Tablet, 1 TAB PO DAILY for fever for 30 Days, #30 Insulin Detemir (Levemir) 100 Unit/1 Ml Vial, 10 UNITS SC QHS, #1 Losartan Potassium (Losartan Potassium) 50 Mg Tablet, 50 MG PO DAILY, (Reported) Multivitamins (Thera M Plus Tablet) 1 Each Tablet, 1 TAB PO DAILY, (Reported) Scheduled PRN Cetirizine HCl (Cetirizine HCl) 10 Mg Tablet, 10 MG PO DAILY PRN for ALLERGIES, (Reported) GME ATTESTATION GME ATTESTATION My faculty preceptor for this patient encounter was physically present during the encounter and was fully available. All aspects of the patient interview, ex amination, medical decision making process, and medical care plan development were reviewed and approved by the faculty preceptor. The faculty preceptor is aware and concurs with the plan as stated in the body of this note and will attest to such by his/her cosignature. Attending Note Attending Note TIA vs Headache ESRD on HD DM HTN Work up negative so far. Follow up neuro/ENT as outpatient. HD done yesterday. No need of HD today. MASON NINO MD Sep 07, 2020 08:25 MARK ADAMS MD Sep 07, 2020 21:59
--- NOTE | 2020-09-08 12:16 | DS.PDOC ---
Discharge Summary General Date of Admission Sep 06, 2020 at 18:51 Date of Discharge 09/08/20 Discharge Summary PROCEDURES PERFORMED DURING STAY: [None]. 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 H/O Dental carries and periodontic disease. Hysterectomy Tonsillectomy Upper and Lower Endoscopy Bilateral Carpal Tunnel Release AV Fistula COMPLICATIONS/CHIEF COMPLAINT: Tia (Transient Ischemic Attack). HOSPITAL COURSE: 74 year old female with PMH of ESRD, DM and Hypertension presented to ED for Left upper and lower extremity weakness which she first noticed at about 2:30 am today. She woke up from sleep to go to the bathroom and noticed that she could not move the left side of the body. She could not stand up even with her helping to make to the bathroom. She had to use a pot in bed. She also had a severe left sided headache and left neck pain and left ear pain which was throbbing in nature. She took some tylenol and tried to relax. She reports that after the tylenol she did feel a little better and was able to go for her routine HD. she was able to walk to the car and then from the car to the HD unit though she was unsteady on her feet. She still continued to have some left sided weakness so presented to the ED after her HD. On my interview her dominant complaint was her left sided hemicranial pain which is in fact chronic going on for at least 2 to 3 years. The pain involves her left forehead till the midline then her left half of the head including the back of the head and left ear and back of left ear down to the neck and extends forward up to the midline of the neck and the left lower jaw just below the ear. Does not involve the left cheek or chin. The pain is throbbing in nature and is so bad that she cannot lay on the left side. She reported this pain has been really bad last 2 days. It seems the pain is constant with some really bad days when she takes tylenol which helps with the pain but the pain comes back when the effect of medicine wears off. She denies any associated phobophobia or nausea. Her left sided upper and lower extremity weakness was better during admission though still not completely gone. She is admitted for evaluation for TIA/stroke vs hemiplegic migraine. She was also noted to be hypoglycemic with blood sugar of 49. Left sided weakness MRI and MRA of brain and carotid dopplers are negative. Stroke ruled out. Telemetry no arrhythmias. TIA is still a possibility Other differentials are hemiplegic migraine and hypoglycemia mimicking stroke. increase ASA to 325. referred to neurology for possible migraine Left sided hemicranial pain chronic could be migraine/ occipital neuralgia/ referred pain from ear or lower jaw. the distribution and character does not fit with trigeminal neuralgia referred to ENT dr Jackson for evaluation of left ear. ESRD had HD today () will consult nephro tomorrow if patient is still here till thursday. DM Hypoglycemia 49 in lab work. Asymptomatic. Patient reports she has not taken anything all day. Levemir dose reduced to 10 units once a day. Hypertension controlled continue losartan. DISCHARGE MEDICATIONS: Please see below. ALLERGIES: Please see below. PHYSICAL EXAMINATION ON DISCHARGE: VITAL SIGNS: Please see below. General Exam: Positive: Alert, Cooperative, No Acute Distress Eye Exam: Positive: PERRLA, Conjunctiva & lids normal, EOMI; Negative: Sclera icteric ENT Exam: Positive: Atraumatic, Mucous membr. moist/pink, Pharynx Normal Neck Exam: Positive: Supple; Negative: JVD, thyromegaly Chest Exam: Positive: Clear to auscultation, Normal air movement Heart Exam: Positive: Rate Normal, Regular Rhythm, Normal S1, Normal S2; Negative: Murmurs, Rubs Abdomen Exam: Positive: Normal bowel sounds, Soft; Negative: Tenderness, Hepatosplenomegaly Extremity Exam: Negative: Clubbing, Cyanosis, Edema Neuro Exam: Positive: Normal Speech, Strength at 5/5 X4 ext, Normal Tone Psych Exam: Positive: Memory Intact, Oriented x 3 LABORATORY DATA: Please see below. IMAGING: MRA Brain: IMPRESSION: 1. 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 2. Otherwise unremarkable MRA. No other significant stenosis or vascular occlusion. MRI Brain: IMPRESSION: Mild cerebral volume loss. No acute intracranial abnormality. Carotid Doppler: IMPRESSION: No carotid arterial stenosis. ACTIVITY: [As tolerated]. DIET: Consistent carb DISPOSITION: Home, Self-Care. DISCHARGE INSTRUCTIONS: follow up with Dr Rodriguez in neurology Follow up with Dr Jackson in ENT. PMD in 2 weeks DISCHARGE CONDITION: [Stable]. TIME SPENT ON DISCHARGE: 40 minutes. Vital Signs/I&Os Vital Signs Date Time Temp Pulse Resp B/P (MAP) Pulse Ox O2 Delivery O2 Flow Rate FiO2 09/07/20 08:31 80 127/73 (91) 09/07/20 06:00 98.1 17 95 Room Air I&O- Last 24 Hours up to 6 AM 09/08/20 06:00 Intake Total 240 ml Output Total 300 ml Balance -60 ml Microbiology Microbiology 09/06/20 Respiratory Virus Panel (PCR) (JULIA) - Final, Complete Discharge Medications Scheduled Acetaminophen (Acetaminophen) 500 Mg Tablet, 1,000 MG PO BID Aspirin (Aspirin) 325 Mg Tablet, 1 TAB PO DAILY for fever Insulin Detemir (Levemir) 100 Unit/1 Ml Vial, 10 UNITS SC QHS Losartan Potassium (Losartan Potassium) 50 Mg Tablet, 50 MG PO DAILY, (Reported) Multivitamins (Thera M Plus Tablet) 1 Each Tablet, 1 TAB PO DAILY, (Reported) Scheduled PRN Cetirizine HCl (Cetirizine HCl) 10 Mg Tablet, 10 MG PO DAILY PRN for ALLERGIES, (Reported) Allergies Coded Allergies: amoxicillin (Verified Allergy, Severe, THROAT CLOSES, 03/27/20) Penicillins (Verified Allergy, Unknown, 03/27/20) cefuroxime (Verified Allergy, Unknown, 03/27/20) JESSIE PICKARD MD Sep 08, 2020 12:16
[2020-09-08] MEDS ORDERED: ASPI-226 PO (18:18)
[2020-09-08] MEDS ORDERED: LEVE1INJ5 SC (18:18)
[2020-09-08] MEDS ORDERED: PANT40TA29 PO (18:18)
== END 2020-09-07 12:07 | disposition home or self-care (01) | DRG 102 ==
LOC: EDBD 15:56 → M ED 15:56 → M ED INP 18:51 → ENRESERV 19:18 → M MSPAV 21:55
PROVIDERS: ADMIT Internal Medicine Nephrology; ATTEND Internal Medicine Nephrology
DX: G43.109 Migraine with aura, not intractable, without status migrainosus (principal); N18.6 End stage renal disease; I12.0 Hypertensive chronic kidney disease with stage 5 chronic kidney disease or end stage renal disease; R53.1 Weakness; E11.42 Type 2 diabetes mellitus with diabetic polyneuropathy; D63.1 Anemia in chronic kidney disease; E11.22 Type 2 diabetes mellitus with diabetic chronic kidney disease; M06.9 Rheumatoid arthritis, unspecified; M81.0 Age-related osteoporosis without current pathological fracture; K21.9 Gastro-esophageal reflux disease without esophagitis; M54.9 Dorsalgia, unspecified; G89.29 Other chronic pain; E55.9 Vitamin D deficiency, unspecified; E04.1 Nontoxic single thyroid nodule; M50.30 Other cervical disc degeneration, unspecified cervical region; Z90.49 Acquired absence of other specified parts of digestive tract; Z90.79 Acquired absence of other genital organ(s); Z79.4 Long term (current) use of insulin; Z79.899 Other long term (current) drug therapy; Z88.0 Allergy status to penicillin; Z88.1 Allergy status to other antibiotic agents; Z88.8 Allergy status to other drugs, medicaments and biological substances; E11.649 Type 2 diabetes mellitus with hypoglycemia without coma

== ENCOUNTER 2020-09-08 14:42 | Observation (INO) | payer MEDICARE ==
[~2020-09-08 14:42] MED LIST changes: +ACET-683 PO; +BAYE325T12 PO; +VITMTA PO
[2020-09-08 15:13] LABS: VENOUS BASE EXCESS 5.3 (-2.0-2.0); VENOUS HCO3 28.8 MEQ/L (23.0-27.0); VENOUS O2 SATURATION 98.4 % (60.0-80.0); VENOUS PARTIAL PRESSURE CO2 38.1 mmHg (38.0-50.0); VENOUS PARTIAL PRESSURE O2 164.9 mmHg (30.0-50.0); VENOUS PH 7.496 UNITS (7.330-7.430); VENOUS STANDARD HCO3 29.3 MEQ/L; VENOUS TOTAL CO2 29.9 MEQ/L (24.0-28.0)
[2020-09-08 15:17] LABS: BASO # 0.1 10^3/uL (0.0-0.2); BASO % 0.9 % (0.0-1.0); EOS # 0.1 10^3/uL (0.0-0.5); EOS % 1.9 % (0.0-3.0); HEMATOCRIT 35.1 % (36.0-47.0); HEMOGLOBIN 11.4 g/dl (12.0-15.5); LYMPH # 2.1 10^3/uL (1.5-5.0); LYMPH % 29.9 % (24.0-44.0); MEAN CORPUSCULAR HEMOGLOBIN 31.6 pg (27.0-33.0); MEAN CORPUSCULAR HGB CONC 32.5 g/dl (32.0-36.5); MEAN CORPUSCULAR VOLUME 97.2 fl (80.0-96.0); MONO # 0.5 10^3/uL (0.0-0.8); MONO % 7.4 % (2.0-8.0); NEUTROPHILS # 4.1 10^3/uL (1.5-8.5); NEUTROPHILS % 59.2 % (36.0-66.0); PLATELET COUNT, AUTOMATED 164 10^3/uL (150-450); RED BLOOD COUNT 3.61 10^6/uL (4.00-5.40); WHITE BLOOD COUNT 6.9 10^3/uL (4.0-10.0)
--- NOTE | 2020-09-08 15:38 | REP ---
INDICATION: loc facial droop. COMPARISON: CT and MRI brain 09/06/2020. TECHNIQUE: CT BRAIN PERFORMED IN THE AXIAL PLANE. CORONAL RECONSTRUCTION IMAGES ARE PERFORMED. FINDINGS: There is again mild atrophy and bilateral chronic periventricular small vessel ischemic changes, stable. There is no midline shift or mass effect. There is no acute intracranial hemorrhage or extra-axial fluid collection. There mild vascular calcifications in the carotid siphons. The mastoid air cells and visualized paranasal sinuses demonstrate no abnormal opacification. IMPRESSION: Stable chronic changes. No acute intracranial hemorrhage, midline shift or mass effect. <Electronically signed by Edgard Pinzon > 09/08/20 [id number]
[2020-09-08 16:06] LABS: RSV AMPLIFICATION NEGATIVE (NEGATIVE)
[2020-09-08 16:10] LABS: CALCIUM LEVEL 8.3 MG/DL (8.8-10.2); CK-MB VALUE MASS 1.3 NG/ML (<3.6); CREATININE FOR GFR 2.13 MG/DL (0.55-1.30); MAGNESIUM LEVEL 1.8 MG/DL (1.8-2.4); MB/CK RELATIVE INDEX 1.01 (< OR =4); POTASSIUM SERUM 3.7 MEQ/L (3.5-5.1); THYROID STIMULATING HORMONE 1.72 uIU/ML (0.358-3.740); TROPONIN I 0.02 NG/ML (< 0.10)
--- NOTE | 2020-09-08 16:14 | REP ---
INDICATION: syncope. COMPARISON: 09/06/2020. TECHNIQUE: SINGLE PORTABLE AP VIEW OF THE CHEST WAS PERFORMED. FINDINGS: There is no acute infiltrate. There is mild cardiomegaly. There is mild calcification of the thoracic aorta. The mediastinal silhouette is unchanged. Right central venous catheter is seen with the tip in the right atrium. IMPRESSION: NO ACUTE PULMONARY DISEASE. <Electronically signed by Edgard Pinzon > 09/08/20 [id number]
--- NOTE | 2020-09-08 18:07 | HPEPDOC ---
General Date of Admission 09/08/20 Date of Service: Sep 08, 2020 Chief Complaint The patient is a 74-year-old female admitted with a reason for visit of AMS. Source: Patient, RN/MD History of Present Illness 74 year old with PMH of ESRD, chronic left sided headache and ear pain etiology still not diagnosed, DM with recent hypoglycemia, HTN, was recently in the hospital from 09/06/20 to 09/07/20 when she was admitted for left sided weakness. MRi/ MRA was negative for stroke , she was hypoglycemic and had headache so was felt it was either a TIA or hypoglycemia or complicated migraine. Today she had gone for her routine HD and had a prolonged syncopal episode during the HD. At that time she was hypotensive to 50s. 2L had been taken off and almost all of the fluid was given back . Her FS at the HD center was 179. She was sent to the ED for evaluation. In the ED her vitals were stable, EKG showed sinus rhythm with first degree A-V block but her Qtc was prolonged to 550. Her potassium and magnesium are normal. Review of medications did not show any medication causing Qt prolongation. Patient herself complained of her left sided ear ache and left headache throbbing type about 5/10 in intensity. This is a chronic issue. She claims she did not get her HD infact she had 3 hour of t/t when she had the syncopal episode. She does not remember the episode and does not know why she was sent to the ED.I spoke with the HD nurse at the center who was taking care of her. 3 hours into the treatment she had 2.3 liters of fluid out. BP check (which is done automatically at the machine every 30 mins ) showed 55/40 so machine was alarming . RN went to check on her, she was diaphoretic and nonresponsive to verbal or painful stimuli. They rapidly gave back 2 liters of fluid after which patient started coming back her Bp was 130/40 on the machine and 102/42 manually. When she was coming too RN noticed drooping of the left side of her face and she was unable to protrude her tongue so they sent her to ED for evaluation. Her FS was 179, no seizure activity was noted. No loss of bowel or bladder control was noted. She did not complains of any chest pain or palpitation or dizziness or light headedness. Patient is being admitted for Syncope. Home Medications Scheduled Aspirin (Aspirin EC) 81 Mg Tablet.dr, 81 MG PO DAILY, (Reported) Insulin Detemir (Levemir Flextouch) 100 Unit/1 Ml Insuln.pen, 10 UNITS SC BID, (Reported) Losartan Potassium (Losartan Potassium) 50 Mg Tablet, 50 MG PO DAILY, (Reported) Multivitamins (Thera M Plus Tablet) 1 Each Tablet, 1 TAB PO DAILY, (Reported) Pantoprazole Sodium (Pantoprazole Sodium) 40 Mg Tablet.dr, 40 MG PO DAILY, (Reported) Scheduled PRN Cetirizine HCl (Cetirizine HCl) 10 Mg Tablet, 10 MG PO DAILY PRN for ALLERGIES, (Reported) Allergies Coded Allergies: amoxicillin (Verified Allergy, Severe, THROAT CLOSES, 03/27/20) Penicillins (Verified Allergy, Unknown, 03/27/20) cefuroxime (Verified Allergy, Unknown, 03/27/20) Past Medical History Medical History Complicated migraine with left hemiparesis Vs Hypoglycemia mimicking stroke Vs TIA Chronic left sided headache and ear pain End Stage Renal Disease on dialysis Thursday, , Thursday Hypertension 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 H/O Dental carries and periodontic disease. Hysterectomy Tonsillectomy Upper and Lower Endoscopy Bilateral Carpal Tunnel Release AV Fistula Family History Significant Family History: Diabetes (sister) Social History * Smoker: Denies Alcohol: Denies Drugs: denies A-FIB/CHADSVASC A-FIB History Current/History of A-Fib/PAF?: No Review of Systems Constitutional: Denies: Chills, Fever, Night Sweats Eyes: Denies: Pain, Vision change ENT: Reports: Ear Pain Skin: Denies: Rash, Lesions, Breakdown Pulmonary: Denies: Dyspnea, Cough Cardiovascular: Denies: Chest Pain, Palpitations, Orthopnea, Paroxysmal Noc. Dyspnea, Lt Headedness Gastrointestinal: Denies: Nausea, Vomiting, Abdominal Pain, Diarrhea Genitourinary: Denies: Dysuria, Frequency, Incontinence, Retention Hematologic: Denies: Bruising, Bleeding Excessively Musculoskeletal: Reports: Neck Pain Neurological: Denies: Weakness, Numbness, Change in speech, Confusion Physical Examination General Exam: Positive: Alert, Cooperative, No Acute Distress Eye Exam: Positive: PERRLA, Conjunctiva & lids normal, EOMI; Negative: Sclera icteric ENT Exam: Positive: Atraumatic, Mucous membr. moist/pink, Pharynx Normal, Tongue Midline, Ext Auditory Canal Nml (wax), Pinna Normal, Other ENT (tenderness around the ear and below the ear left) Neck Exam: Positive: Supple; Negative: JVD, thyromegaly Chest Exam: Positive: Clear to auscultation, Normal air movement Heart Exam: Positive: Rate Normal, Regular Rhythm, Normal S1, Normal S2; Negative: Murmurs, Rubs Telemetry: Positive: No significant arrhythmia, AV Block (first degree) Abdomen Exam: Positive: Normal bowel sounds, Soft; Negative: Tenderness, Hepatospenomegaly Extremity Exam: Positive: Edema (trace), Normal pulses; Negative: Clubbing, Cyanosis Neuro Exam: Positive: Normal Speech, Strength at 5/5 X4 ext, Normal Tone Psych Exam: Positive: Oriented x 3 Vital Signs Vital Signs Date Time Temp Pulse Resp B/P (MAP) Pulse Ox O2 Delivery O2 Flow Rate FiO2 09/08/20 15:15 09/08/20 14:48 96.3 86 16 Room Air Laboratory Data Labs 24H Laboratory Tests 2 09/08/20 15:02: Anion Gap 8, Glomerular Filtration Rate 24.0L, Calcium Level 8.3L, Magnesium Level 1.8, Total Creatine Kinase 129, Creatine Kinase MB 1.3, Creatine Kinase MB Relative Index 1.01, Troponin I 0.02#, Thyroid Stimulating Hormone (TSH) 1.720 09/08/20 15:03: Immature Granulocyte % (Auto) 0.7, Neutrophils (%) (Auto) 59.2, Lymphocytes (%) (Auto) 29.9, Monocytes (%) (Auto) 7.4, Eosinophils (%) (Auto) 1.9, Basophils (%) (Auto) 0.9, Neutrophils # (Auto) 4.1, Lymphocytes # (Auto) 2.1, Monocytes # (Auto) 0.5, Eosinophils # (Auto) 0.1, Basophils # (Auto) 0.1, Nucleated Red Blood Cells % (auto) 0.0, POC Glucose (Misc Panel) 137H, POC Sodium (Misc Panel) 135L, POC Potassium (Misc Panel) 4.9, POC Chloride (Misc Panel) 96L, POC Total CO2 (Misc Panel) 35.0H, POC Blood Urea Nitrogen (Misc Panel 12, POC Ionized Calcium (Misc Panel) 3.6L, POC Creatinine (Misc Panel) 2.4H, POC Hematocrit (Misc Panel) 36.0L, Blood Gas Bicarbonate Standard 29.3, Venous Blood pH 7.496H, Venous Blood Partial Pressure CO2 38.1, Venous Blood Partial Pressure O2 164.9H, Venous Blood Total Carbon Dioxide 29.9H, Venous Blood HCO3 28.8H, Venous Blood Oxygen Saturation 98.4H, Venous Blood Base Excess 5.3H, Coronavirus (COVID- 19)(PCR) NEGATIVE, Influenza Type A (RT-PCR) NEGATIVE, Influenza Type B (RT-PCR) NEGATIVE, Respiratory Syncytial Virus (PCR) NEGATIVE CBC/BMP Laboratory Tests 09/08/20 15:02 09/08/20 15:03 Assessment/Plan 74 year old with PMH of ESRD, chronic left sided headache and ear pain etiology still not diagnosed, DM with recent hypoglycemia, HTN, was recently in the hospital from 09/06/20 to 09/07/20 when she was admitted for left sided weakness. MRi/ MRA was negative for stroke , she was hypoglycemic and had headache so was felt it was either a TIA or hypoglycemia or complicated migraine. Today she had gone for her routine HD and had a prolonged syncopal episode during the HD. At that time she was hypotensive to 50s. 2L had been taken off and almost all of the fluid was given back . Her FS at the HD center was 179. She was sent to the ED for evaluation. In the ED her vitals were stable, EKG showed sinus rhythm with first degree A-V block but her Qtc was prolonged to 550. Her potassium and magnesium are normal. Review of medications did not show any medication causing Qt prolongation. Patient herself complained of her left sided ear ache and left headache throbbing type about 5/10 in intensity. This is a chronic issue. She claims she did not get her HD infact she had 3 hour of t/t when she had the s yncopal episode. She does not remember the episode and does not know why she was sent to the ED.I spoke with the HD nurse at the center who was taking care of her. 3 hours into the treatment she had 2.3 liters of fluid out. BP check (which is done automatically at the machine every 30 mins ) showed 55/40 so machine was alarming . RN went to check on her, she was diaphoretic and nonresponsive to ve rbal or painful stimuli. They rapidly gave back 2 liters of fluid after which patient started coming back her Bp was 130/40 on the machine and 102/42 manually. When she was coming too RN noticed drooping of the left side of her face and she was unable to protrude her tongue so they sent her to ED for evaluation. Her FS was 179, no seizure activity was noted. No loss of bowel or bladder control was noted. She did not complains of any chest pain or palpitation or dizziness or light headedness. Patient is being admitted for Syncope. Syncope most likely due to hypotension during HD however she has prolonged Qtc so need to rule out life threatening cardiac arrhythmias EKG shows sinus with first degree A-V block with sinus arrhythmias, Telemetry shows some junctional rhythm also, Rate is 76 Left ear pain/ hearing impairment/ ? tinnitus Ext auditory canal wax present , so could not see properly and TM could not be seen. No discharge or redness., no pain on moving the tragus will refer to ENT May need imaging of the inner ear Gait instability affecting the left will get PT/OT ESRD HD as per schedule. appears slightly fluid overloaded , facial puffiness and trace edema present electrolyte ok no resp issues Hypertension had hypotension during HD probably due to rapid fluid removal will use meds as needed. Plan / VTE VTE Prophylaxis Ordered?: Yes JESSIE PICKARD MD Sep 08, 2020 17:22
[2020-09-08] MEDS ORDERED: PANT40TA29 PO (18:18)
[2020-09-08] MEDS ORDERED: LEVE1INJ5 SC (18:18)
[2020-09-08] MEDS ORDERED: ASPI-226 PO (18:18)
[2020-09-08 20:00] VITALS: BP 178/77
[2020-09-08] MEDS ORDERED: ACETAMINOPHEN TAB 650MG DOSE (2X325MG) PO ONE (20:00)
[2020-09-08] MEDS: HEPARIN SOD (PORCINE) 5000UNITS/ML 1ML VIAL/SYRINGE SQ SCH (21:00)
[2020-09-08 22:00] VITALS: BP 162/71
[2020-09-08 22:05] VITALS: BP 163/70
[2020-09-08 22:10] VITALS: BP 182/77
[2020-09-09] VITALS: BP 163/70
[2020-09-09 04:00] VITALS: BP_SYST 165; BP_SYST 168; BP_SYST 179; BP_DIAS 69; BP_DIAS 70; BP_DIAS 74
[2020-09-09 05:33] LABS: HEMATOCRIT 33.3 % (36.0-47.0); MEAN CORPUSCULAR HEMOGLOBIN 31.3 pg (27.0-33.0); MEAN CORPUSCULAR VOLUME 94.9 fl (80.0-96.0); PLATELET COUNT, AUTOMATED 171 10^3/uL (150-450); RED BLOOD COUNT 3.51 10^6/uL (4.00-5.40); WHITE BLOOD COUNT 6.3 10^3/uL (4.0-10.0)
[2020-09-09 05:55] LABS: CALCIUM LEVEL 9.3 MG/DL (8.8-10.2); CREATININE FOR GFR 3.34 MG/DL (0.55-1.30); GLOMERULAR FILTRATION RATE 14.3 (>39); MAGNESIUM LEVEL 1.8 MG/DL (1.8-2.4); POTASSIUM SERUM 3.6 MEQ/L (3.5-5.1)
[2020-09-09 08:00] VITALS: BP 176/72
[2020-09-09] MEDS: ASPIRIN 325 MG TAB PO SCH (10:06)
[2020-09-09] MEDS: MULTIVITAMINS/MINERALS THERAP 1 TAB PO SCH (10:06)
[2020-09-09] MEDS: LOSARTAN 50MG TABLET PO SCH (10:06)
[2020-09-09] MEDS: PANTOPRAZOLE 40MG TAB (PROTONIX) PO SCH (10:06)
[2020-09-09] MEDS: HEPARIN SOD (PORCINE) 5000UNITS/ML 1ML VIAL/SYRINGE SQ SCH ×2 (10:07→21:27)
[2020-09-09] MEDS: LEVEMIR (INSULIN DETEMIR) 1 UNITS/0.01ML SC SCH (10:07)
--- NOTE | 2020-09-09 11:32 | ECGEPIP ---
[facility] Test Date: 2020-09-09 Pat Name: RAE HUERTA Department: Room: [place] [address] Gender: Female Summer Associate: luis : 1945 Requested By: JESSIE PICKARD Order Number: [id number] Reading MD: Nabor Allen Measurements Intervals [place] Rate: 77 P: [place]: 184 QRS: 59 QRSD: 86 T: 61 QT: 454 QTc: 513 Interpretive Statements Normal sinus rhythm with borderline first degree AV block Minimal voltage criteria for LVH, may be normal variant ( Sokolow-Chatman ) Prolonged QT Poor R wave progression due to lead misplacement Compared to prior tracings in the system, minimal changes Electronically Signed on 09-09-2020 11:32:23 EDT by Nabor Allen
--- NOTE | 2020-09-09 11:33 | IPNPDOC ---
Subjective Date Seen The patient was seen on 09/09/20. Subjective Chief Complaint/HPI Continues to complain of left ear and left neck pain. Says its throbbing and she cannot lay down on her left side. Objective Physical Examination General Exam: Positive: Alert, Cooperative, No Acute Distress Eye Exam: Positive: PERRLA, Conjunctiva & lids normal, EOMI; Negative: Sclera icteric ENT Exam: Positive: Atraumatic, Mucous membr. moist/pink, Pharynx Normal, Tongue Midline, Ext Auditory Canal Nml (bilateral large amoungt of wax), Pinna Normal, Other ENT (tenderness around the ear and below the ear left) Neck Exam: Positive: Supple; Negative: JVD, thyromegaly Chest Exam: Positive: Clear to auscultation, Normal air movement Heart Exam: Positive: Rate Normal, Regular Rhythm, Normal S1, Normal S2; Negative: Murmurs, Rubs Telemetry: Positive: No significant arrhythmia, AV Block (first degree) Abdomen Exam: Positive: Normal bowel sounds, Soft; Negative: Tenderness, Hepatospenomegaly Extremity Exam: Positive: Edema (trace), Normal pulses; Negative: Clubbing, Cyanosis Neuro Exam: Positive: Normal Speech, Strength at 5/5 X4 ext, Normal Tone Psych Exam: Positive: Oriented x 3 Assessment /Plan Assessment 74 year old with PMH of ESRD, chronic left sided headache and ear pain etiology still not diagnosed, DM with recent hypoglycemia, HTN, was recently in the hospital from 09/06/20 to 09/07/20 when she was admitted for left sided weakness. MRi/ MRA was negative for stroke , she was hypoglycemic and had headache so was felt it was either a TIA or hypoglycemia or complicated migraine. Today she had gone for her routine HD and had a prolonged syncopal episode during the HD with BP of 55/44 with some possible left facial droop when she recovered. She was admitted for Syncope. She was noted to have prolonged qtc in EKG Syncope most likely due to hypotension during HD however she has prolonged Qtc so need to rule out life threatening cardiac arrhythmias EKG shows sinus with first degree A-V block with sinus arrhythmias, Telemetry shows some junctional rhythm also, Rate is 76 I have ordered an echo and consulted Dr Allen. Last echo was in 11/2019 qtc prolongation not on any meds that can cause this does not use any over the counter meds. Left ear pain/ hearing impairment/ ? tinnitus Ext auditory canal with lots of wax. No discharge no pain on moving the tragus will refer to ENT dr Jackson. May need imaging of the inner ear Gait instability affecting the left will get PT/OT ESRD HD as per schedule. appears slightly fluid overloaded , facial puffiness and trace edema present electrolyte ok no resp issues Hypertension had hypotension during HD probably due to rapid fluid removal restart losartan Has Basilic AVF on the right being followed by Dr Michael. Plan/VTE VTE Prophylaxis Ordered?: Yes VS, I&O, 24H, Fishbone Vital Signs/I&O Vital Signs Date Time Temp Pulse Resp B/P (MAP) Pulse Ox O2 Delivery O2 Flow Rate FiO2 09/09/20 10:06 176/72 09/09/20 08:00 96.9 86 17 94 Room Air I&O- Last 24 Hours up to 6 AM 09/09/20 05:59 Intake Total 0 ml Output Total 0 ml Balance 0 ml Laboratory Data 24H LABS Laboratory Tests 2 09/08/20 15:02: Anion Gap 8, Glomerular Filtration Rate 24.0L, Calcium Level 8.3L, Magnesium Level 1.8, Total Creatine Kinase 129, Creatine Kinase MB 1.3, Creatine Kinase MB Relative Index 1.01, Troponin I 0.02#, Thyroid Stimulating Hormone (TSH) 1.720 09/08/20 15:03: Immature Granulocyte % (Auto) 0.7, Neutrophils (%) (Auto) 59.2, Lymphocytes (%) (Auto) 29.9, Monocytes (%) (Auto) 7.4, Eosinophils (%) (Auto) 1.9, Basophils (%) (Auto) 0.9, Neutrophils # (Auto) 4.1, Lymphocytes # (Auto) 2.1, Monocytes # (Auto) 0.5, Eosinophils # (Auto) 0.1, Basophils # (Auto) 0.1, Nucleated Red Blood Cells % (auto) 0.0, POC Glucose (Misc Panel) 137H, POC Sodium (Misc Panel) 135L, POC Potassium (Misc Panel) 4.9, POC Chloride (Misc Panel) 96L, POC Total CO2 (Misc Panel) 35.0H, POC Blood Urea Nitrogen (Misc Panel 12, POC Ionized Calcium (Misc Panel) 3.6L, POC Creatinine (Misc Panel) 2.4H, POC Hematocrit (Misc Panel) 36.0L, Blood Gas Bicarbonate Standard 29.3, Venous Blood pH 7.496H, Venous Blood Partial Pressure CO2 38.1, Venous Blood Partial Pressure O2 164.9H, Venous Blood Total Carbon Dioxide 29.9H, Venous Blood HCO3 28.8H, Venous Blood Oxygen Saturation 98.4H, Venous Blood Base Excess 5.3H, Coronavirus (COVID- 19)(PCR) NEGATIVE, Influenza Type A (RT-PCR) NEGATIVE, Influenza Type B (RT-PCR) NEGATIVE, Respiratory Syncytial Virus (PCR) NEGATIVE 09/09/20 05:25: Anion Gap 6L, Glomerular Filtration Rate 14.3L, Calcium Level 9.3, Magnesium Level 1.8, Nucleated Red Blood Cells % (auto) 0.0 CBC/BMP Laboratory Tests 09/08/20 15:02 09/08/20 15:03 09/09/20 05:25 JESSIE PICKARD MD Sep 09, 2020 11:14
[2020-09-09 12:00] VITALS: BP 180/78
[2020-09-09] MEDS: CARBAMIDE PEROXIDE 6.5% OTIC SOLN 15ML AU SCH ×2 (13:38→21:21)
[2020-09-09 15:12] VITALS: BP 168/72
[2020-09-09] MEDS: **hydrALAZINE HCL** 25 MG TAB PO SCH ×3 (15:12→23:55)
--- NOTE | 2020-09-09 15:50 | ECGEPIP ---
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
[2020-09-09 20:00] VITALS: BP 183/78
[2020-09-09] MEDS ORDERED: METOPROLOL TART 25 MG TABLET PO SCH (21:00)
[2020-09-09] MEDS ORDERED: ACETAMINOPHEN 500 MG TAB PO PRN (23:40)
[2020-09-10] VITALS (7 sets, daily range): BP systolic 151–182; BP diastolic 58–82
[2020-09-10] MEDS: **hydrALAZINE HCL** 25 MG TAB PO SCH ×2 (04:53→12:00)
[2020-09-10 05:50] LABS: HEMATOCRIT 33.8 % (36.0-47.0); HEMOGLOBIN 10.7 g/dl (12.0-15.5); MEAN CORPUSCULAR HEMOGLOBIN 30.2 pg (27.0-33.0); MEAN CORPUSCULAR HGB CONC 31.7 g/dl (32.0-36.5); MEAN CORPUSCULAR VOLUME 95.5 fl (80.0-96.0); PLATELET COUNT, AUTOMATED 174 10^3/uL (150-450); RED BLOOD COUNT 3.54 10^6/uL (4.00-5.40); WHITE BLOOD COUNT 7.5 10^3/uL (4.0-10.0)
[2020-09-10 06:24] LABS: CALCIUM LEVEL 9.2 MG/DL (8.8-10.2); CREATININE FOR GFR 4.38 MG/DL (0.55-1.30); GLOMERULAR FILTRATION RATE 10.5 (>39); MAGNESIUM LEVEL 1.9 MG/DL (1.8-2.4); POTASSIUM SERUM 3.8 MEQ/L (3.5-5.1)
--- NOTE | 2020-09-10 08:12 | CR ---
CONSULTATION DATE: 09/09/2020 REQUESTING PHYSICIAN: Rosmery Negro M.D. REASON FOR CONSULTATION: Management of endstage renal disease and hypertension. CHIEF COMPLAINT: Patient presented to the hospital yesterday because of altered mental status and hypotension during dialysis. HISTORY OF PRESENT ILLNESS: Nicanor Greenberg is a 74-year-old female with a past medical history of endstage renal disease on hemodialysis q. Thursday, and Thursday, history of hypertension, diabetes mellitus Type 2, multiple other comorbidities as mentioned below, she was recently admitted to the hospital for possible TIA, left sided headache and ear pain. Workup included an MRI and MRA that was negative for stroke or any stenosis or dissection of any cerebral or carotid artery. She was discharged before the weekend to follow-up with ENT as an outpatient. However, yesterday when she was having a dialysis she had a syncopal episode and hypotension during dialysis. By that time, she had gotten 2 liters of fluid removed so all of that fluid was given back to her when she was hypotensive and unresponsive. She was sent to the hospital Emergency Room for further evaluation. When she arrived to the Emergency Room her blood pressures were in the 170s. She had first degree AV block and prolonged QTc. She was admitted under the Hospitalist service. Nephrology service has been called for further help in the management of this patient. I saw and evaluated the patient today morning at the bedside. She is still complaining of left sided ear pain and headache. PAST MEDICAL HISTORY: Past medical history of endstage renal disease with hemodialysis q. Thursday, and Thursday. Recent admission for left sided hemiparesis and TIA, and left sided headache. History of hypertension, diabetes mellitus Type 2 complicated by peripheral neuropathy, rheumatoid arthritis, gastroesophageal reflux disease, osteoporosis, anemia secondary to endstage renal disease. History of thyroid nodules, degenerative disc disease of the spine, history of dental caries requiring multiple dental procedures and removal of teeth. PAST SURGICAL HISTORY: Status post hysterectomy status post tonsillectomy, bilateral carpal tunnel surgery, status post AV fistula placement. ALLERGIES: She is allergic to penicillin and cefuroxime. FAMILY HISTORY: No significant family history of endstage renal disease requiring hemodialysis. SOCIAL HISTORY: She denies any smoking, illicit drug abuse or alcohol abuse. REVIEW OF SYSTEMS: Constitutional: She denies any fevers or chills. Eyes: She denies any blurry vision or double vision. ENT: She reports left ear pain. Cardiovascular: She denies any chest pain or palpitations. Respiratory: She denies any shortness of breath or cough. GI: She denies any nausea or vomiting. Genitourinary: She denies any dysuria or hematuria. Musculoskeletal: Denies any muscle aches and pains. Skin: She denies any rashes or ulcers. Psych: She denies any depression or anxiety. Hematologic/oncologic: Denies any easy bleeding or bruising. LEAD SECURITY OFFICER: Reports left sided weakness recently and left ear pain. All other review of systems is negative. PHYSICAL EXAMINATION: GENERAL: Awake, alert and oriented x3, sitting up in bed complaining of left ear pain. VITAL SIGNS: Temperature is 97.9 degrees Fahrenheit, blood pressure is 168/72, pulse is 82, respiratory rate is 16, saturating 98% on room air. HEAD AND NECK EXAM: Extraocular muscles are intact. Pupils are equally round and reactive to light. Mucous membranes are moist. She has lost multiple teeth. Neck is supple. There is no JVD. CARDIOVASCULAR: S1 and S2. Regular rate. No edema of the bilateral lower extremities. RESPIRATORY: Chest is clear to auscultation bilaterally. Bilateral equal air entry. No rales or rhonchi. ABDOMEN: Soft, positive bowel sounds, nontender. No organomegaly. MUSCULOSKELETAL: No clubbing or cyanosis, pulses are 2+. LEAD SECURITY OFFICER: No focal deficit. Power is 5/5 in all extremities. LABORATORY DATA: CBC showed a WBC of 6.3, hemoglobin 11, platelets 171,000. BMP showed a sodium of 137, potassium is 3.6, chloride 100, bicarbonate 31, BUN 15 is 3.3. IMAGING: CT scan of the head was done yesterday which showed stable chronic changes, no acute pathology. Chest x-ray was done which showed no acute pulmonary disease. CURRENT INPATIENT MEDICATIONS: The patient is on aspirin 325 mg p.o. daily. She has been started on eardrops. She is on Heparin sub q. twice a day, hydralazine 25 mg p.o. q. 6 hourly, insulin Levemir 10 units sub q. daily, Losartan 50 mg p.o. daily, Protonix 40 mg p.o. daily. ASSESSMENT AND PLAN: 1. Endstage renal disease. Patient's regular dialysis days are Thursday, and Thursday. Her volume status is okay. Recent syncope is noted. No use of hemodialysis at this time. 2. Syncope and hypotension during dialysis. Patient was hypotensive requiring a return of 2 liters of fluid during dialysis. On arrival, she had first degree AV block. This time she is hypertensive. Antihypertensive medications are slowly be restarted. 3. Hypertension. Patient was hypotensive yesterday, however she has elevated blood pressures now. She has been started on hydralazine and losartan. She is supposed to be on amlodipine at home which she does not take and she is also supposed to be on metoprolol which she does not take. Slowly, these medications can be restarted. 4. Diabetes mellitus Type 2, insulin dependent. Continue current dose of insulin and Levemir. Glucose levels are within the acceptable range. 5. Left sided ear pain. Patient was examined and she has a lot of wax in the ear. She is getting the eardrops. Imaging including MRI and MRA done during recent hospitalization two days ago did not show any acute pathology. The rest of the workup is as per the Hospitalist team. 6. Anemia and endstage renal disease, hemoglobin level is 11 and blood pressures are high. No need of __ administration at this time.
[2020-09-10] MEDS: ASPIRIN 325 MG TAB PO SCH (08:33)
[2020-09-10] MEDS: LOSARTAN 50MG TABLET PO SCH (08:33)
[2020-09-10] MEDS: MULTIVITAMINS/MINERALS THERAP 1 TAB PO SCH (08:33)
[2020-09-10] MEDS: PANTOPRAZOLE 40MG TAB (PROTONIX) PO SCH (08:34)
[2020-09-10] MEDS: HEPARIN SOD (PORCINE) 5000UNITS/ML 1ML VIAL/SYRINGE SQ SCH (08:34)
[2020-09-10] MEDS: CARBAMIDE PEROXIDE 6.5% OTIC SOLN 15ML AU SCH (08:35)
[2020-09-10] MEDS: LEVEMIR (INSULIN DETEMIR) 1 UNITS/0.01ML SC SCH (09:00)
--- NOTE | 2020-09-10 10:09 | CR.PDOC ---
General Date of Consultation: Sep 10, 2020 Consultation REASON FOR CONSULTATION/CHIEF COMPLAINT: left ear pain HISTORY OF PRESENT ILLNESS: This very pleasant 74-year-old patient has admitted for workup of left ear pain and was scheduled to see me in clinic today. We were going to check her fistula after transposition of the right brachial basilic, and see if it was ready for access. I evaluated the patient at the bedside today, and she has an excellent thrill and the basilic vein. It is superficial and easy to see and palpate. I discussed with the patient that once she has outpatient comments okay to use the fistula for dialysis. If they are successfully cannulized using, we will bring her back to remove the PermCath at that time. She is agreeable to this plan. I to Dr. Pierce to let him know., For inpatient dialysis, would recommend using PermCath. ALLERGIES: Please see below. HOME MEDICATIONS: Please see below. PAST MEDICAL HISTORY: ESRD PAST SURGICAL HISTORY: R brachiobasilic AVF creation and transposition FAMILY HISTORY: Heart disease diabetes SOCIAL HISTORY: Patient is , denies tobacco alcohol or illicit drug use REVIEW OF SYSTEMS: CONSTITUTIONAL: Denies fevers chills. HEENT: Positive left ear pain and sore throat CARDIOVASCULAR: Denies chest pain RESPIRATORY: No shortness of breath GENITOURINARY: Denies dysuria MUSCULOSKELETAL: Denies claudication GASTROINTESTINAL: Denies nausea vomiting diarrhea, positive reflux SKIN: Denies rashes NEUROLOGICAL: Positive dizziness PSYCHIATRIC: Denies anxiety depression ENDOCRINE: Positive diabetes HEMATOLOGIC/LYMPHATIC: Denies bleeding clotting disorder ALLERGIC/IMMUNOLOGIC: Denies PHYSICAL EXAMINATION: VITAL SIGNS: Please see below. GENERAL APPEARANCE: Medically stable HEENT: Normocephalic, complaining of significant pain left ear RESPIRATORY: Clear to auscultation CARDIOVASCULAR: Regular rate and rhythm ABDOMEN: Soft nontender EXTREMITIES: Right upper extremity brachiobasilic AV fistula is easy to palpate with a good thrill status post transposition. The incisions are all well healed. Hand is warm and well-perfused. NEUROLOGICAL: Moves all extremities equally. Alert and oriented 3. PSYCHIATRIC: Pleasant and cooperative. LABORATORY DATA: Please see below. ASSESSMENT/PLAN: Very pleasant 74-year-old patient with end-stage renal disease on hemodialysis 1. Okay to use right brachiobasilic AV fistula for dialysis access once the patient resumes outpatient dialysis. Use PermCath for today. I sent Dr. Pierce a text regarding our recommendations. 2. If cannulation of access a successful outpatient, would like to see the patient back for PermCath removal. We appreciate the opportunity to participate in the care of this patient. Vital Signs/I&O Vital Signs Date Time Temp Pulse Resp B/P (MAP) Pulse Ox O2 Delivery O2 Flow Rate FiO2 09/10/20 08:33 164/78 09/10/20 08:00 75 16 100 Room Air 09/10/20 04:00 97.4 I&O- Last 24 Hours up to 6 AM 09/10/20 06:00 Intake Total 360 ml Output Total 0 ml Balance 360 ml Laboratory Data Labs 24H Laboratory Tests 2 09/09/20 12:16: Bedside Glucose (Misc Panel) 145H 09/10/20 05:24: Nucleated Red Blood Cells % (auto) 0.0, Anion Gap 6L, Glomerular Filtration Rate 10.5L, Calcium Level 9.2, Magnesium Level 1.9 CBC/BMP Laboratory Tests 09/10/20 05:24 Allergies Coded Allergies: amoxicillin (Verified Allergy, Severe, THROAT CLOSES, 03/27/20) Penicillins (Verified Allergy, Unknown, 03/27/20) cefuroxime (Verified Allergy, Unknown, 03/27/20) Home Medications Scheduled Aspirin (Aspirin EC) 81 Mg Tablet.dr, 81 MG PO DAILY, (Reported) Insulin Detemir (Levemir Flextouch) 100 Unit/1 Ml Insuln.pen, 10 UNITS SC BID, (Reported) Losartan Potassium (Losartan Potassium) 50 Mg Tablet, 50 MG PO DAILY, (Reported) Multivitamins (Thera M Plus Tablet) 1 Each Tablet, 1 TAB PO DAILY, (Reported) Pantoprazole Sodium (Pantoprazole Sodium) 40 Mg Tablet.dr, 40 MG PO DAILY, (Reported) Scheduled PRN Cetirizine HCl (Cetirizine HCl) 10 Mg Tablet, 10 MG PO DAILY PRN for ALLERGIES, (Reported) MERCY FRANCISCO MD Sep 10, 2020 10:09
--- NOTE | 2020-09-10 12:06 | IPN ---
PROGRESS NOTE DATE: 09/10/2020 SUBJECTIVE: Ms. Greenberg was seen and examined this morning. There have been no adverse events reported overnight. Review of telemetry did not demonstrate any event. The patient was admitted originally for what was believed to be syncope although at the time she was receiving dialysis and was noted to be hypotensive. The patient herself this morning does not complaining of any dizziness or lightheadedness. She does complain of some left sided ear pain, throat pain, jaw pain, and neck pain. The patient herself is somewhat difficult to understand. However, review of the patient's medical record shows that this left sided ear, throat, jaw and neck pain has been dating back to at least November. She has had multiple imaging modalities completed as well including head and neck CT, brain MRI. At one point she was found to have some hypodense thyroid nodules which were biopsied but were otherwise benign. The patient states that she has had this continuous pain in her left side. OBJECTIVE: VITAL SIGNS: Temperature is 97.4, pulse 78, respiratory rate 16, blood pressure 182/79, pulse oximetry 98% on room air. GENERAL: Patient is awake, alert and oriented. She does not appear in acute distress. She is laying comfortably in bed. HEENT: Atraumatic. Normocephalic. Eyes: Nonicteric. Her trachea is midline. Mucous membranes are pink and moist. CARDIOVASCULAR: Normal S1 and S2. Regular rate and rhythm. There is a 2/6 systolic ejection murmur, otherwise no clicks or rubs. PULMONARY: There are clear breath sounds bilaterally, somewhat diminished throughout. No wheezes, rhonchi or rales noted. ABDOMEN: Soft, nondistended and nontender, normoactive bowel sounds throughout. EXTREMITIES: No edema. Full equal pulses bilaterally of upper and lower extremities. NEUROLOGIC: No focal neurological deficits. PSYCHIATRIC: Mood and affect appear appropriate. LABORATORY DATA: White blood cell count 7.5, hemoglobin 10.7, hematocrit 33.8, platelet count 134,000. Chemistries: Sodium 137, potassium 3.8, chloride is 103, CO2 is 28, BUN is 24, creatinine is 4.38. Glucose is 89. Calcium is 9.2. Magnesium is 1.9. INPATIENT CARDIAC MEDICATIONS: 1. Hydralazine 25 mg every 6 hours p.o. 2. Losartan 50 mg daily p.o. ASSESSMENT AND PLAN: Mrs. Greenberg is a 74-year-old female with a past medical history of endstage renal disease on hemodialysis, chronic left sided ear, throat, jaw and neck pain, diabetes mellitus and hypertension who had presented to [facility] with an episode of what was described as syncope. The patient had been receiving routine hemodialysis and was having fluid removed when she was noted to become somewhat unresponsive. This was described as a prolonged syncopal episode. The patient's blood pressure at that time was noted to be 55/44. The patient was given fluid resuscitation and had recovered. In the Emergency Department, the patient was found to have a prolonged QTc on EKG. Additionally, the patient was then admitted for syncope. 1. Hypotension, less likely syncope: Patient was admitted for syncope although review of the record it is likely just secondary to a hypotensive episode from hemodialysis and fluid removal. Her blood pressure at the time was noted to be 55/44. She had recovered with fluid resuscitation. There has been no adverse events reported on telemetry and her echocardiogram did not show any significant findings. Of interest, the patient was noted to have a prolonged QTc. Review of her medications does not demonstrate any QTc prolonging medications that could have caused this unless the patient is taking something that is [id number] which could be a cause. 2. QTc prolongation: as noted previously, patient has a QTc prolongation, she is not on any QTc prolonging medications. Her QTc does appear to be decreasing today. Will continue to monitor the patient on telemetry. 3. Chronic left ear, throat, jaw and neck pain. The patient has been complaining of this left sided ear pain as well as jaw, throat, and neck. Review of the medical records shows that she has had this pain since dating back to November of 2019. She has been evaluated fairly extensively with CT imaging and brain MRI. Additionally, she has received thyroid biopsy as she has been noted to have multiple hypodense thyroid nodules in the left side. She has been seen by ENT outpatient and she has been placed on antibiotics for this previously. At this current time it is unclear what the etiology of her pain is although it is probably some form of neuralgia, maybe a trigeminal neuralgia versus a glossopharyngeal neuralgia. Certainly with a glossopharyngeal neuralgia you would develop some throat pain as well, however does not appear to be an acute event. 4. Hypertension, patient is currently noted to be hypertensive today. She is being followed by Nephrology. She is currently taking Hydralazine 25 mg every 6 hours p.o. as well as Cozaar 50 mg daily p.o. Would recommend continuing. Her blood pressure is still not under adequate control. It appears that she is supposed to be on amlodipine and metoprolol as an outpatient however she reports she is not taking them RECOMMENDATIONS: Current recommendations to continue on her medications as previously prescribed. Patient's syncopal episode is likely secondary to hypotensive episode during dialysis. CEFERINO
--- NOTE | 2020-09-10 12:35 | CR ---
CARDIOLOGY CONSULTATION DATE: 09/10/2020 REFERRING PROVIDER: Rosmery Negro M.D. HISTORY OF PRESENT ILLNESS: A 74-year-old woman was brought down to the emergency room (ER) by ambulance on 09/08/2020 from the hemodialysis center after one episode of syncope. It seems that while she was there, she became hypotensive and passed out. It was reported that her blood pressure was 55 mmHg systolic. Within three hours of the dialysis session, 2.3 liters of fluid was removed and this was given back to the patient. She was brought to the ER for evaluation and was admitted for further management and evaluation with a diagnosis of syncope. It was reported that her electrocardiogram (EKG) revealed a prolongation of QT and there was some concern about arrhythmia. Cardiology consult was called. When I saw Ms. Greenberg, she was laying supine in bed in no acute distress. She denied any chest pain, palpitations, orthopnea, syncope or near syncope. She had no pedal edema. She complains of pain on the left side of her face and neck and says this has been going on for a long time. She was recently admitted on 09/06/2020 to 09/07/2020 with left-sided weakness and that was thought to be related to hypoglycemia versus migraine. Neurological workup was negative. PAST MEDICAL HISTORY: Positive for: 1. Hypertension. 2. Gastroesophageal reflux disease (GERD). 3. Insulin dependent diabetes mellitus. 4. Allergies. 5. End-stage renal disease (ESRD), for which she has been on hemodialysis. 6. associated pneumonia. 7. Arthritis/rheumatoid arthritis. 8. Vitamin D deficiency. 9. Multiple thyroid nodules with benign workup. There is no history of hyperlipidemia, positive coronary artery disease, myocardial infarction, congestive heart failure, significant valvular heart disease, atrial fibrillation/flutter, cardiomyopathy, sudden cardiac . PAST SURGICAL HISTORY: Positive for: 1. Hysterectomy. 2. Tonsillectomy. 3. Bilateral carpal tunnel release surgery. 4. Arteriovenous (AV) fistula insertion for hemodialysis. 5. Thyroid nodule biopsies. FAMILY HISTORY: Positive for diabetes mellitus. SOCIAL HISTORY: Patient lives at home and denies any smoking, ETOH abuse or any illicit drugs. ALLERGIES: PENICILLIN, AMOXICILLIN, CEFUROXIME. MEDICATIONS AT HOME: - aspirin 81 mg by mouth daily - Levemir insulin - losartan potassium 50 mg by mouth daily - multivitamin one tablet by mouth daily - pantoprazole 40 mg by mouth daily - cetirizine as needed for allergies CURRENT MEDICATIONS: - hydralazine 25 mg every 6 hours by mouth - Levemir insulin - aspirin 325 mg by mouth daily - pantoprazole 40 mg by mouth daily - multivitamin one table by mouth daily - losartan potassium 50 mg by mouth daily - subcutaneous heparin 5000 units twice a day PHYSICAL EXAMINATION: Patient is alert and oriented, in no acute distress at rest. VITAL SIGNS: When I saw her, revealed a blood pressure of 168/72 with a pulse of 82, respirations 18 and maximum temperature was 97.9 degrees Fahrenheit. Oxygen saturation was 98% on room air. EXAMINATION OF THE HEAD: Atraumatic. NECK: Supple. No jugular venous distention (JVD) appreciated. LUNGS: Clear bilaterally to auscultation without any wheezing or crackles. HEART EXAMINATION: Reveals irregular heart sounds without gallops. The point of maximum impulse (PMI) is not displaced. There is no rub. ABDOMEN: Soft and nontender. EXTREMITIES: Reveal no pedal edema. NEUROLOGICAL EXAMINATION: Reveal no focal deficits. LABORATORY DATA: CBC done today reveals a WBC of 6.3, hemoglobin 11.0, hematocrit 33.3 and platelets 171,000. BMP reveals a sodium of 137, potassium 3.6, chloride 100, CO2 31, BUN 15, creatinine 3.3, GFR 14.3, fasting glucose 106, calcium 9.3, magnesium 1.8. Fast COVID-19 was negative as well as influenza A and B and respiratory Syncytial Virus (RSV) PCR. EKG on admission in the ER revealed an irregular rhythm with probable borderline first degree AV block, probably unconnected premature atrial contractions (PACs) noted in the second half of the EKG, underlying sinus arrhythmia, voltage criteria for left ventricular hypertrophy. QT interval was reported to be found to be 50 ms, probably artifactual. Repeat EKG done on 09/09/2020 revealed normal sinus rhythm with borderline first degree AV block. QT interval seems to be normal. Telemetry was reviewed and revealed no significant arrhythmias. There were some junctional beats, otherwise, normal sinus rhythm. IMAGING DATA: Head CT on 09/08/2020 revealed stable chronic changes. No acute processes. Chest x-ray on the same day revealed no acute pulmonary process. IMPRESSION: 1. Syncope, most likely related to her hypotensive episode. The QT prolongation noted on the first EKG seems to be artifactual in origin. Patient had an echocardiogram done today and it revealed a normal global ventricular systolic function. If she remains asymptomatic, she can be discharged home tomorrow, 09/10/2020 and prior to going home, she can stop by at the office for an event recorder for further evaluation. 2. End-stage renal disease (ESRD) on hemodialysis. 3. History of hypertension. 4. History of diabetes mellitus, on insulin. It was a pleasure to participate in the care of Ms. Nicanor Greenberg for her underlying cardiac condition. Once again, if she remains stable, she can be discharged home tomorrow, 09/10/2020 and I will follow her as outpatient. Case was discussed earlier today with her hospitalist.
[2020-09-10] MEDS ORDERED: LEVE1INJ5 SC (12:37)
[2020-09-10] MEDS ORDERED: ASPI-1 PO (12:39)
[2020-09-10] MEDS ORDERED: ACET-839 PO (12:39)
--- NOTE | 2020-09-10 12:51 | ECHO ---
DATE OF PROCEDURE: 09/09/2020 Age: 74 Gender: Female REFERRING PROVIDER: Rosmery Bowman PATIENT LOCATION: Room 3222. REASON FOR STUDY: Syncope. 2D MEASUREMENTS: IVS 1.6 cm LV 5.3 cm LA 3.2 cm Aorta 2.6 cm IVC 1.8 cm DOPPLER MEASUREMENT Peak velocity across the aortic valve 1.6 m/s Peak velocity across the LVOT 0.6 m/s Peak gradient across the aortic valve 10 mmHg Mean gradient across the aortic valve 5 mmHg Mitral E 0.84 Mitral A 1.1 with a ratio of 0.8 Maximum tricuspid valve velocity 2.7 m/s 2D COMMENTS: 1. Normal left ventricular size with mildly to moderately increased left ventricular wall thickness. Left ventricular systolic function is normal. Estimated to 65%. 2. Subjectively, the left atrium appeared to be mildly enlarged. Normal right atrium and right ventricle. 3. The atrial septum appeared to be normal without evidence of defect or shunt. 4. Normal aortic root. 5. Trace to small pericardiac effusion noted, no evidence of cardiac tamponade. 6. Mildly calcified aortic valve with normal leaflet excursion. Mildly calcified mitral annulus with normal appearing mitral valve leaflet motion. Normal tricuspid valve and pulmonic valve. The proximal pulmonary artery branches were not well visualized. 7. The inferior vena cava is normal in size, central venous pressure is most likely normal. 8. Doppler detects mild mitral regurgitation, moderate tricuspid regurgitation, and mild pulmonic regurgitation. The calculated pulmonary artery systolic pressure varies between 30 to 40 mmHg. Abnormal relaxation pattern was noted across the mitral valve leaflets as well as the mitral valve annulus consistent with features of grade 1 left ventricular diastolic dysfunction. IMPRESSION: 1. Normal global left ventricular systolic function with mild to moderate concentric left ventricular hypertrophy. There were some features of grade 1 left ventricular diastolic dysfunction manifested by abnormal relaxation. 2. Aortic valve sclerosis without stenosis or aortic regurgitation. 3. Mild annulus calcification with mild mitral regurgitation. Subjectively, the left atrium appeared to be mildly enlarged. 4. Moderate tricuspid regurgitation with mild pulmonary hypertension. 5. Trace to small pericardiac effusion noted. No evidence of cardiac tamponade. 6. There was an echogenic structure in the right atrium, most likely related to the hemodialysis catheter. MTDD
[2020-09-10] MEDS ORDERED: CARBOT AU (13:44)
--- NOTE | 2020-09-10 13:49 | IPNPDOC ---
Subjective Date Seen The patient was seen on 09/10/20. Subjective Chief Complaint/HPI Except for left ear pain and left neck pain no other complaints. Wants to go home. Objective Physical Examination General Exam: Positive: Alert, Cooperative, No Acute Distress Eye Exam: Positive: PERRLA, Conjunctiva & lids normal, EOMI; Negative: Sclera icteric ENT Exam: Positive: Atraumatic, Mucous membr. moist/pink, Pharynx Normal, Tongue Midline, Ext Auditory Canal Nml (wax), Pinna Normal, Other ENT (tenderness around the ear and below the ear left) Neck Exam: Positive: Supple; Negative: JVD, thyromegaly Chest Exam: Positive: Clear to auscultation, Normal air movement Heart Exam: Positive: Rate Normal, Regular Rhythm, Normal S1, Normal S2; Negative: Murmurs, Rubs Telemetry: Positive: No significant arrhythmia Abdomen Exam: Positive: Normal bowel sounds, Soft; Negative: Tenderness, Hepatospenomegaly Extremity Exam: Positive: Edema (trace), Normal pulses; Negative: Clubbing, Cyanosis Neuro Exam: Positive: Normal Speech, Strength at 5/5 X4 ext, Normal Tone Psych Exam: Positive: Oriented x 3 Assessment /Plan Assessment 74 year old with PMH of ESRD, chronic left sided headache and ear pain etiology still not diagnosed, DM with recent hypoglycemia, HTN, was recently in the hospital from 09/06/20 to 09/07/20 when she was admitted for left sided weakness. MRI/ MRA was negative for stroke , she was hypoglycemic and had headache so was felt it was either a TIA or hypoglycemia or complicated migraine. Today she had gone for her routine HD and had a prolonged syncopal episode during the HD with BP of 55/44 with some possible left facial droop when she recovered. She was admitted for Syncope. She was noted to have prolonged qtc in EKG Syncope due to hypotension during HD No life threatening cardiac arrhythmias in the telemetry EKG shows sinus with first degree A-V block with sinus arrhythmias, Telemetry showed some episodes of junctional rhythm. now in sinus. EKG now with corrected qtc 489. As per cardiology likely related to electrolyte shifts during HD. Echo was unrevealing as below. 1. Normal global left ventricular systolic function with mild to moderate concentric left ventricular hypertrophy. There were some features of grade 1 left ventricular diastolic dysfunction manifested by abnormal relaxation. 2. Aortic valve sclerosis without stenosis or aortic regurgitation. 3. Mild annulus calcification with mild mitral regurgitation. Subjectively, the left atrium appeared to be mildly enlarged. 4. Moderate tricuspid regurgitation with mild pulmonary hypertension. 5. Trace to small pericardiac effusion noted. No evidence of cardiac tamponade. 6. There was an echogenic structure in the right atrium, most likely related to the hemodialysis catheter. Qtc prolongation now corrected. not on any meds that can cause this does not use any over the counter meds. As per cardiology like related to electrolyte shifts during HD. will refer to cardiology for an event monitor. Left ear pain and neck pain/ hearing impairment/ ? tinnitus/ pain during swallowing. Ext auditory canal with lots of wax. No discharge no pain on moving the tragus Had FNAC done with Dr Jackson in Apr 2020 for thyroid nodule. He wants pt to be referred to [facility] first before he will see the patient in the ENT clinic. discussed about getting imaging of inner ear but Dr Jackson did not recommend doing an imaging at present. Gait instability affecting the left will get PT/OT ESRD HD as per schedule. Hypertension continue losartan R brachiobasilic AVF creation and transposition seen by Dr Michael Ok to use right brachiobasilic AV fistula for dialysis access Dispo: Discharged home today. Discharge instructions: Follow up with [facility] for hearing test. Once hearing test is done follow up with Dr Jackson in the ENT office for left ear and left left pain. Follow up with Dr Allen's office to get a event monitor. Follow up with Dr Michael for perm cath removal once the AVF is being used successfully. Plan/VTE VTE Prophylaxis Ordered?: Yes VS, I&O, 24H, Fishbone Vital Signs/I&O Vital Signs Date Time Temp Pulse Resp B/P (MAP) Pulse Ox O2 Delivery O2 Flow Rate FiO2 09/10/20 12:00 151/67 09/10/20 11:43 97.2 79 18 98 Room Air I&O- Last 24 Hours up to 6 AM 09/10/20 06:00 Intake Total 360 ml Output Total 0 ml Balance 360 ml Laboratory Data 24H LABS Laboratory Tests 2 09/10/20 05:24: Nucleated Red Blood Cells % (auto) 0.0, Anion Gap 6L, Glomerular Filtration Rate 10.5L, Calcium Level 9.2, Magnesium Level 1.9 CBC/BMP Laboratory Tests 09/10/20 05:24 JESSIE PICKARD MD Sep 10, 2020 13:48
--- NOTE | 2020-09-10 14:19 | IPNPDOC ---
Subjective General Date/Time Seen The patient was seen on 09/10/20 at 14:05. Subject Chief Complaint/History The patient is a 74-year-old female admitted with a reason for visit of Esrd Syncope. SUBJECTIVE: Mrs. Greenberg was seen and examined at the bedside this morning. She states that she is continuing to have pain in her left mastoid, radiating to her left neck and now has some ringing in her left ear. She denies any pain on the right side of her face. There is no sensitivity to touch on her face or her neck. Her hospitalist has plan for her to see Dr. Jackson in his office tomorrow morning. She was also seen by Dr. Izquierdo this morning in regards to her fistula, as she was supposed to see her in the office today. Plan is to use permacath in dialysis for the time being. The patient has no other complaints this morning. Her blood pressure remained stable in the high 170s to 180s overnight. She denies any vision changes, no nausea, no vomiting. OBJECTIVE: PHYSICAL EXAMINATION: VITAL SIGNS: see below GENERAL: alert and oriented, in no apparent distress, pleasant and conversant in full sentences. HEENT: PERRL, EOMI, Oral mucous membranes are moist without lesions. She is almost edentulous, has few teeth remaining NECK: The patient has no noted JVD. No adenopathy is appreciated. No thyromegaly CHEST/LUNGS: Lungs are clear bilaterally without rhonchi, rales, or wheezes. There is no subcutaneous air appreciated. There is no tenderness to the chest wall. CHEST WALL: Permacath in place HEART:Regular rate and rhythm. 2/6 systolic ejection murmur heard best in the right upper sternal border, no other rubs, or gallops are appreciated. Distal pulses are 2+. No carotid bruits appreciated. ABDOMEN: Soft, nontender, and nondistended. Bowel sounds are positive. No organomegaly is appreciated. No masses are appreciated. There are no peritoneal signs. There is no [place] sign. EXTREMITIES: Right arm fistula is intact with good palpable thrill. No peripheral edema. There is no focal long bone tenderness or deformity. SKIN: The patients skin is warm and dry, without rashes or lesions. PSYCHIATRIC: AAO x 3, normal mood/affect NEUROLOGIC: The patient has 5/5 strength to the upper and lower extremities bilaterally. Sensation is intact throughout. Deep tendon reflexes are 2+ in all four extremities. There are no deficits to the cranial nerves. IMAGING: ECHO 09/09/20: IMPRESSION: 1. Normal global left ventricular systolic function with mild to moderate concentric left ventricular hypertrophy. There were some features of grade 1 left ventricular diastolic dysfunction manifested by abnormal relaxation. 2. Aortic valve sclerosis without stenosis or aortic regurgitation. 3. Mild annulus calcification with mild mitral regurgitation. Subjectively, theleft atrium appeared to be mildly enlarged. 4. Moderate tricuspid regurgitation with mild pulmonary hypertension. 5. Trace to small pericardiac effusion noted. No evidence of cardiac tamponade. 6. There was an echogenic structure in the right atrium, most likely related tothe hemodialysis catheter. ASSESSMENT: This is a 74-year-old female with end-stage renal disease on hemodialysis who presented with syncope during last hemodialysis session and continued left hemicranial pain, tinnitus. PLAN: 1. End-stage renal disease on hemodialysis: -Next hemodialysis treatment is planned for Thursday. Volume status is euvolemic 2. History of syncope and hypotension during last dialysis session: -No events noted on telemetry -Patient was found to be in first-degree AV block with elevated QTC on admission. Cardiology is consulted at this time. Blood pressures are elevated and therefore oral antihypertensive medications are to be restarted at this time -Plan for event recorder per cardiology 3. Hypertension: -Continue hydralazine and losartan, can add back amlodipine if needed for elevated blood pressures 4. Type 2 diabetes, insulin-dependent: -Continue current dose of Levemir and sliding scale insulin 5. Left-sided ear pain, tinnitus: -Patient has appointment with ENT to be seen tomorrow 6. Anemia of chronic kidney disease: -Hemoglobin today is stable at 10.7 Current Medications Current Medications Current Medications Medications (Trade) Dose Ordered Sig/Mike Route PRN Reason Start Time Stop Time Status Last Admin Dose Admin Acetaminophen (Tylenol Tab) 1,000 mg Q6HP PRN PO PAIN / FEVER 09/09/20 23:40 Aspirin (Aspirin) 325 mg DAILY PO 09/09/20 09:00 09/10/20 08:33 Carbamide Peroxide (Debrox) 5 drop BID AU 09/09/20 09:00 09/12/20 21:01 09/10/20 08:35 Heparin Sodium (Porcine) (Heparin) 5,000 units BID SQ 09/08/20 21:00 09/10/20 08:34 Home Med (Med Rec Complete!) ASDIRECTED XX 09/08/20 18:30 09/08/20 18:30 DC Hydralazine HCl (Apresoline) 25 mg Q6H PO 09/09/20 12:00 09/10/20 04:53 Insulin Detemir (Levemir Insulin) 10 units DAILY SC 09/09/20 09:00 09/09/20 10:07 Losartan Potassium (Cozaar) 50 mg DAILY PO 09/09/20 09:00 09/10/20 08:33 Metoprolol Tartrate (Lopressor) 25 mg BID PO 09/09/20 21:00 Cancel Multivitamins (Theragram-M) 1 tab DAILY PO 09/09/20 09:00 09/10/20 08:33 Pantoprazole Sodium (Protonix) 40 mg DAILY PO 09/09/20 09:00 09/10/20 08:34 Allergies Coded Allergies: amoxicillin (Verified Allergy, Severe, THROAT CLOSES, 03/27/20) Penicillins (Verified Allergy, Unknown, 03/27/20) cefuroxime (Verified Allergy, Unknown, 03/27/20) VS,Fishbone, I+O VS, Fishbone, I+O Laboratory Tests 09/10/20 05:24 Vital Signs Date Time Temp Pulse Resp B/P (MAP) Pulse Ox O2 Delivery O2 Flow Rate FiO2 09/10/20 14:00 97.2 79 16 156/58 (90) 99 Room Air I&O- Last 24 Hours up to 6 AM 09/10/20 06:00 Intake Total 360 ml Output Total 0 ml Balance 360 ml GME ATTESTATION GME ATTESTATION My faculty preceptor for this patient encounter was physically present during the encounter and was fully available. All aspects of the patient interview, examination, medical decision making process, and medical care plan development were reviewed and approved by the faculty preceptor. The faculty preceptor is aware and concurs with the plan as stated in the body of this note and will attest to such by his/her cosignature. MASON NINO MD Sep 10, 2020 14:19
--- NOTE | 2020-09-10 23:13 | ECGEPIP ---
[facility] Test Date: 2020-09-10 Pat Name: RAE HUERTA Department: Room: [place] [address] Gender: Female Order Checker: sheila : 1945 Requested By: JESSIE PICKARD Order Number: [id number] Reading MD: Nabor Allen Measurements Intervals [place] Rate: 80 P: IA: 184 QRS: 62 QRSD: 82 T: 58 QT: 424 QTc: 489 Interpretive Statements Normal sinus rhythm with first degree AV Block Minimal voltage criteria for LVH, may be normal variant ( Sokolow-Chatman ) Poor R wave progression Compared to prior tracings in the system, no significant changes Electronically Signed on 09-10-2020 23:13:14 EDT by Nabor Allen
== END 2020-09-10 15:53 | disposition home health service (06) ==
LOC: M ED 14:42 → M ED INP 14:43 → ENRESERV 16:55 → M PCU 19:20
PROVIDERS: ADMIT Internal Medicine Nephrology; ATTEND Internal Medicine Nephrology
DX: R55 Syncope and collapse (principal); H92.02 Otalgia, left ear; H91.8X2 Other specified hearing loss, left ear; R26.81 Unsteadiness on feet; N18.6 End stage renal disease; Z99.2 Dependence on renal dialysis; R51.9 Headache, unspecified; R94.31 Abnormal electrocardiogram [ECG] [EKG]; M54.2 Cervicalgia; I13.11 Hypertensive heart and chronic kidney disease without heart failure, with stage 5 chronic kidney disease, or end stage renal disease; I95.9 Hypotension, unspecified; E04.1 Nontoxic single thyroid nodule; E11.29 Type 2 diabetes mellitus with other diabetic kidney complication; E11.40 Type 2 diabetes mellitus with diabetic neuropathy, unspecified; E11.21 Type 2 diabetes mellitus with diabetic nephropathy; M06.9 Rheumatoid arthritis, unspecified; K21.9 Gastro-esophageal reflux disease without esophagitis; E55.9 Vitamin D deficiency, unspecified; M81.0 Age-related osteoporosis without current pathological fracture; D63.1 Anemia in chronic kidney disease; Z79.899 Other long term (current) drug therapy; Z79.82 Long term (current) use of aspirin; Z88.4 Allergy status to anesthetic agent; Z88.0 Allergy status to penicillin; Z88.1 Allergy status to other antibiotic agents
CPT/HCPCS: 36415; 70450; 71045; 80047; 80048; 82550; 82553; 82803; 83735; 84443; 84484; 85025; 85027; 87631; 93005; 93041; 93306; 96372; 99285; G0378; J1644

== ENCOUNTER → 2020-11-30 | Outpatient (CLI) | payer MEDICARE ==
[~2020-11-30] MED LIST changes: +ACET-839 PO; +ASPI-1 PO; +ASPI-226 PO; +BACTDSTA PO; +CARBOT AU; +ERGO500029 PO; +ISOVUE-300 61% 50ML VIAL As Ordered ONE; +LEVE1INJ5 SC; +LIDOCAINE 1% MDV 20ML VIAL As Ordered ONE; +LIDOCAINE W/EPINEPHRINE 1% 20ML VIAL As Ordered ONE; +MIDAZOLAM INJ 2MG/2ML VIAL (J2250 PER 1MG) As Ordered ONE; -SULF1TAB93 PO; -VITA50005 PO; +fentaNYL 100 MCG/2 ML INJECTION (J3010) As Ordered ONE
--- NOTE | 2020-11-30 13:18 | ROOPDOC ---
[facility] Report Of Operation Report of Operation DATE OF PROCEDURE: 11/30/20 PREPROCEDURE DIAGNOSES: ESRD with poorly functioning RUE AVF POSTPROCEDURE DIAGNOSES: Same PROCEDURE PERFORMED: 1. US guided access right basilic vein 2. RUE fistulagram and central venogram 3. Angioplasty right basilic vein and subclavian vein with 8 x 100 [place] balloon 4. Completion venogram 5. Removal right IJ PermCath SURGEON: Mercy Soler MD ANESTHESIA: Local anesthesia 3 mL lidocaine. Moderate intravenous conscious sedation was administered by Dr. Soler. The patient was independently monitored by registered nurse assigned to the Department of radiology using automated blood pressure, EKG, and pulse oximetry. The detailed sedation record is permanently stored in the hospital information system. The following is a brief sedation record: Start time 12:39, stop time 12:55, Versed 0.5 mg IV, fentanyl 25 g IV. CONTRAST: 12 mL Isovue-300 INDICATION FOR PROCEDURE: This is a very pleasant 75-year-old patient with end- stage renal disease currently dialyzing with a right brachial basilic AV fistula status post transposition. She's had increased pulsatility in the fistula, difficulty with cannulation, and increased bleeding times after dialysis. Risks benefits alternatives to fistula grammar explained to patient she is agreeable to proceed. Informed consent was obtained. If the fistula still suitable for use after fistulogram, they've asked that we remove her PermCath and we would be happy to do so. The risks benefits alternatives to PermCath removal were also explained and the patient agreeable. Consent was also obtained for this as well. INTERPRETATION: 1. AV anastomosis is widely patent on ultrasound, please see images. 2. The right basilic vein status post transposition is widely patent over the bicep in the area transpose, but has a 60% narrowing where returns to its normal anatomic lie, but the axillary vein and subclavian vein are widely patent until the junction with the superior vena cava where there is another 70% stenosis. 3. After angioplasty of the right basilic vein proximally and the right noonan bclavian vein proximally into the superior vena cava, there was a marked improvement in flow through both. We repeated the angioplasty for another three- minute inflations in the basilic vein, and following this both areas had free flow, no significant residual stenosis, no extravasation noted. There was an excellent thrill and the fistula in the pulsatility was resolved. REPORT OF OPERATION: Patient was brought to the angiographic suite in stable condition. Her right upper extremity was prepped and draped in sterile fashion. A timeout was performed. Local anesthesia was a electrical appliance repairer to skin and subcutaneous tissue over the right basilic vein near the AV anastomosis. Ultrasound was used to examine the AV anastomosis and it was noted to be widely patent. Ultrasound was used to gain access to the basilic vein near the AV anastomosis with a microneedle. A wire was passed through this access needle was removed and a 4 [place] sheath was placed and flushed with saline. Sedation was administered without complication A fistulogram and central venogram were performed, please interpretation above. Glidewire was advanced through this access into the central system under fluoroscopic guidance and we exchanged sheath for 6 Ukrainian sheath and flushed sheath with saline. An 8 x 100 [place] balloon was used for three-minute inflation of the proximal basilic vein and at the proximal subclavian vein into the superior vena cava. Following this, there was a marked improvement in flow, please see dictation above. We then did a second angioplasty at the proximal basilic vein for three-minute inflation. Following this, we had a marked improvement in flow through both areas, no significant residual stenosis, no extravasation and there was an excellent thrill and the fistula. Local anesth esia was administered around the sheath in a [id number] Prolene suture was placed in the sheath was removed. The suture was secured in good hemostasis was noted. Sterile dressings were applied. We then used ultrasound to map the basilic vein on the skin and this was marked with a skin marker. A Tegaderm was placed over the menendez. The patient was then transferred back to her hospital bed without head of bed elevated. Her right neck and chest including the PermCath were prepped and draped in sterile fashion. A timeout was performed. Local anesthesia was a electrical appliance repairer to the skin and subcutaneous tissue around PermCath. The sutures were cut and removed. The soft tissues loosened around the cough and once the cuff was free, pressure was held at the jugular access site and the catheter was removed. The catheter was examined and found to be intact. No portion was left behind. The cough and the tips were intact. Pressure was held for 10 minutes for good hemostasis and sterile dressings were applied. The patient was monitored for 30 minutes postprocedure to make sure she cannot bleeding or hematoma on the right neck or any issues from her fistulogram. She was discharged in stable condition. ESTIMATED BLOOD LOSS: Approximately 5 mL. COMPLICATIONS: None PLAN: It is okay to use the fistula for dialysis. It is been marked on the skin. It is okay to resume home diet and medications. Keep head of bed elevated today. Avoid laying flat if possible. This will diminish the risk of bleeding or bruising at the jugular access site where the PermCath was removed. Ok to shower after 24 hours with dressings off. We appreciate the opportunity to participate in the care of this patient. EMRCY SOLER MD Nov 30, 2020 13:18
[2020-11-30 13:45] VITALS: BP 143/65
== END ==
LOC: M IRPRO 11:20
PROVIDERS: ATTEND Surgery Vascular Surgery
DX: T82.590A Other mechanical complication of surgically created arteriovenous fistula, initial encounter (principal); N18.6 End stage renal disease; E11.22 Type 2 diabetes mellitus with diabetic chronic kidney disease; I12.9 Hypertensive chronic kidney disease with stage 1 through stage 4 chronic kidney disease, or unspecified chronic kidney disease; X58.XXXA Exposure to other specified factors, initial encounter; Z99.2 Dependence on renal dialysis
CPT/HCPCS: 36589; 36902; 36907; 99152; C1725; C1769; C1894; J1644; J2250; J3010; Q9967

== ENCOUNTER → 2021-04-08 | Outpatient (CLI) | payer MEDICARE, BC ==
[~2021-04-08] MED LIST changes: -CLIN150C15 PO; +CLIN150C17 PO; -ISOVUE-300 61% 50ML VIAL As Ordered ONE; +ISOVUE-370 76% 100ML VIAL As Ordered ONE; -LIDOCAINE 1% MDV 20ML VIAL As Ordered ONE; -LIDOCAINE W/EPINEPHRINE 1% 20ML VIAL As Ordered ONE; -MIDAZOLAM INJ 2MG/2ML VIAL (J2250 PER 1MG) As Ordered ONE; -fentaNYL 100 MCG/2 ML INJECTION (J3010) As Ordered ONE
--- NOTE | 2021-04-08 10:38 | REPVR ---
PROCEDURE INFORMATION: Exam: CT Neck With Contrast Exam date and time: 04/08/2021 9:52 AM Age: 75 years old Clinical indication: Neck pain; Prior surgery; Surgery date: 6+ months; Surgery type: Tonsils; Additional info: Lt neck pain f/u tonsilectomy of soft tissue neck TECHNIQUE: Imaging protocol: Computed tomography images of the neck with contrast. Radiation optimization: All CT scans at this facility use at least one of these dose optimization techniques: automated exposure control; mA and/or kV adjustment per patient size (includes targeted exams where dose is matched to clinical indication); or iterative reconstruction. Contrast material: ISOVUE 370; Contrast volume: 75 ml; Contrast route: INTRAVENOUS (IV); COMPARISON: CT Neck without contrast 12/19/2019 4:05 AM FINDINGS: Nasopharynx: Unremarkable. Oropharynx: Unremarkable. No significant tonsillar enlargement. Hypopharynx: Unremarkable. Larynx: Unremarkable. Normal epiglottis. Retropharyngeal space: Unremarkable. Submandibular/Parotid glands: Normal. Glands are normal in size. Thyroid: Enlarged left lobe of the thyroid gland and isthmus with multiple complex nodules and calcifications; largest nodule appears to be the left lobe of the thyroid gland and isthmus measuring up to 14 x 21 mm. Findings are stable since prior examination. Lymph nodes: Unremarkable. No lymphadenopathy. Trachea: Visualized trachea is unremarkable. Lungs: Unremarkable as visualized. Bones/joints: Unremarkable. No acute fracture. Soft tissues: Unremarkable. No significant soft tissue swelling. IMPRESSION: Enlarged left lobe of the thyroid gland and isthmus with multiple complex nodules and calcifications; largest nodule appears to be the left lobe of the thyroid gland and isthmus measuring up to 14 x 21 mm. Findings are stable since prior examination. Further evaluation with ultrasound and tissue sampling is recommended. COMMENTS: Consistent with the [employer]'s Incidental Findings Committee white paper (J Am Jean Paul Radiol 2015): In patients aged 35 years and older with an incidental thyroid nodule equal to or greater than 1.[address], MRI or extrathyroidal US, further evaluation with dedicated thyroid US is recommended for patients with normal life expectancy and without comorbidities. For smaller nodules without suspicious features, no further evaluation or follow up is recommended. Electronically signed by: Vandana Serrano On 04/08/2021 10:37:30 AM
== END ==
LOC: M RAD 09:25
PROVIDERS: ATTEND Otolaryngology
DX: M54.2 Cervicalgia (principal)
CPT/HCPCS: 70491; Q9967

== ENCOUNTER 2021-07-23 16:00 | Emergency (ER) | payer MEDICARE ==
[~2021-07-23] VITALS: Ht 147.3 cm; Wt 49.9 kg
[~2021-07-23 16:00] MED LIST changes: -ISOVUE-370 76% 100ML VIAL As Ordered ONE; +LOSA25TA13 PO; -LOSA25TA14 PO; +LOSA50TA28 PO; -LOSA50TA88 PO
[2021-07-23 18:01] LABS: ALBUMIN 4.2 GM/DL (3.2-5.2); BILIRUBIN,DIRECT 0.3 MG/DL (0.0-0.2); BILIRUBIN,TOTAL 0.6 MG/DL (0.2-1.0); CALCIUM LEVEL 9.5 MG/DL (8.8-10.2); CREATININE FOR GFR 2.68 MG/DL (0.55-1.30); GLOMERULAR FILTRATION RATE 18.4 (>39); POTASSIUM SERUM 3.4 MEQ/L (3.5-5.1); TOTAL PROTEIN 8.6 GM/DL (6.4-8.2)
[2021-07-23 18:25] LABS: BASO % 0.7 % (0.0-1.0); EOS # 0.1 10^3/uL (0.0-0.5); LYMPH # 1.5 10^3/uL (1.5-5.0); LYMPH % 50.5 % (24.0-44.0); MEAN CORPUSCULAR HEMOGLOBIN 31.1 pg (27.0-33.0); MEAN CORPUSCULAR HGB CONC 33.3 g/dl (32.0-36.5); MEAN CORPUSCULAR VOLUME 93.3 fl (80.0-96.0); MONO # 0.3 10^3/uL (0.0-0.8); MONO % 10.8 % (2.0-8.0); NEUTROPHILS # 1.1 10^3/uL (1.5-8.5); NEUTROPHILS % 35.7 % (36.0-66.0); PLATELET COUNT, AUTOMATED 143 10^3/uL (150-450); RED BLOOD COUNT 4.18 10^6/uL (4.00-5.40); WHITE BLOOD COUNT 3.1 10^3/uL (4.0-10.0)
[2021-07-23] MEDS ORDERED: ACETAMINOPHEN TAB 650MG DOSE (2X325MG) PO ONE (18:30)
[2021-07-23] MEDS ORDERED: GI COCKTAIL 50ML BTL(HYOSCYAMINE/MAALOX/LIDOCAINE VISCOUS)(1:3:1) PO ONE (19:30)
[2021-07-23] MEDS ORDERED: FAMOTIDINE 20 MG TAB PO ONE (19:30)
[2021-07-23] MEDS ORDERED: LOSARTAN 50MG TABLET PO ONE (20:20)
[2021-07-23 20:32] VITALS: BP 181/81
[2021-07-23 20:37] VITALS: BP 182/75
[2021-07-23] MEDS ORDERED: PEPC10TA6 PO (20:51)
== END 2021-07-23 21:14 | disposition home or self-care (01) ==
LOC: M ED 16:00
DX: U07.1 COVID-19 (principal); K29.70 Gastritis, unspecified, without bleeding; J98.11 Atelectasis; M16.0 Bilateral primary osteoarthritis of hip; M51.34 Other intervertebral disc degeneration, thoracic region; M41.26 Other idiopathic scoliosis, lumbar region; E11.9 Type 2 diabetes mellitus without complications; I12.0 Hypertensive chronic kidney disease with stage 5 chronic kidney disease or end stage renal disease; N18.6 End stage renal disease; Z88.0 Allergy status to penicillin; Z88.1 Allergy status to other antibiotic agents; Z79.899 Other long term (current) drug therapy; Z79.4 Long term (current) use of insulin

== ENCOUNTER → 2022-01-01 | Outpatient (REF) | payer MEDICARE ==
[~2022-01-01] MED LIST changes: +PEPC10TA6 PO
== END ==
LOC: M LAB REF 16:14
PROVIDERS: ATTEND Otolaryngology
DX: E04.1 Nontoxic single thyroid nodule (principal)

== ENCOUNTER 2023-07-24 14:12 | Inpatient (IN) | payer MEDICARE ==
[~2023-07-24 14:12] MED LIST changes: -ASPI-161 PO; +ASPI-615 PO; +INSU100I6 SC; +INSU100I6 SUBQ; -LEVE1INJ5 SC; -LEVE1INJ5 SUBQ
[2023-07-24 16:36] VITALS: BP 160/80; TEMP 97.2; O2SAT 100
[2023-07-24] MEDS ORDERED: CHLORASEPTIC SPRAY MT PRN (16:50)
[2023-07-24] MEDS ORDERED: ACETAMINOPHEN TAB 650MG DOSE (2X325MG) PO PRN (16:50)
[2023-07-24] MEDS ORDERED: LIDOCAINE 1% SDV 5ML VIAL SC PRN (18:20)
[2023-07-24] MEDS ORDERED: HEPARIN 1,000UNITS/ML 10ML VIAL (FOR RADIOLOGY & DIALYSIS ONLY) XX SCH (18:20)
[2023-07-24] MEDS: ALBUTEROL SULFATE 2.5MG/0.5ML INH NEB SOLN NEB SCH (18:33)
[2023-07-24 18:35] LABS: BASO % 0.2 % (0.0-1.0); EOS % 0.4 % (0.0-3.0); HEMATOCRIT 29.3 % (36.0-47.0); HEMOGLOBIN 10.2 g/dl (12.0-15.5); LYMPH # 1.2 10^3/uL (1.5-5.0); LYMPH % 12.3 % (24.0-44.0); MEAN CORPUSCULAR HEMOGLOBIN 34.1 pg (27.0-33.0); MEAN CORPUSCULAR HGB CONC 34.8 g/dl (32.0-36.5); MONO # 0.6 10^3/uL (0.0-0.8); MONO % 6.3 % (2.0-8.0); NEUTROPHILS # 7.9 10^3/uL (1.5-8.5); NEUTROPHILS % 80.5 % (36.0-66.0); PLATELET COUNT, AUTOMATED 136 10^3/uL (150-450); RED BLOOD COUNT 2.99 10^6/uL (4.00-5.40); WHITE BLOOD COUNT 9.8 10^3/uL (4.0-10.0)
[2023-07-24] MEDS ORDERED: CALC667T4 PO (18:52)
[2023-07-24] MEDS ORDERED: LOSA100T46 PO (18:53)
[2023-07-24] MEDS ORDERED: HOME MED LIST COMPLETE! XX SCH (18:55)
[2023-07-24] MEDS ORDERED: LevoFLOXacin IV 750 MG in IV 1 EA IV ONE (19:00)
[2023-07-24 19:01] LABS: CALCIUM LEVEL 8.5 MG/DL (8.3-10.6); CREATININE FOR GFR 9.28 MG/DL (0.55-1.30); GLOMERULAR FILTRATION RATE 4.4 (>39); POTASSIUM SERUM 5.3 MMOL/L (3.5-5.1)
[2023-07-24 21:23] VITALS: BP 153/71; TEMP 97.7; O2SAT 99
[2023-07-24] MEDS: LevoFLOXacin IV 750 MG in IV 1 EA IV ONE (23:29)
[2023-07-24] MEDS: HEPARIN SOD (PORCINE) 5000UNITS/ML 1ML VIAL/SYRINGE SC SCH (23:29)
[2023-07-25 03:56] VITALS: BP 139/71; TEMP 97.9; O2SAT 99
[2023-07-25] MEDS ORDERED: LIDOCAINE 1% SDV 5ML VIAL SC PRN (05:40)
[2023-07-25] MEDS ORDERED: HEPARIN 1,000UNITS/ML 10ML VIAL (FOR RADIOLOGY & DIALYSIS ONLY) XX SCH (06:00)
[2023-07-25] MEDS ORDERED: SODIUM CHLORIDE 0.9% 1000ML IV PRN (06:00)
[2023-07-25 06:16] LABS: BASO % 0.2 % (0.0-1.0); EOS % 0.5 % (0.0-3.0); HEMATOCRIT 28.7 % (36.0-47.0); HEMOGLOBIN 9.9 g/dl (12.0-15.5); LYMPH # 0.6 10^3/uL (1.5-5.0); LYMPH % 6.8 % (24.0-44.0); MEAN CORPUSCULAR HEMOGLOBIN 33.9 pg (27.0-33.0); MEAN CORPUSCULAR HGB CONC 34.5 g/dl (32.0-36.5); MEAN CORPUSCULAR VOLUME 98.3 fl (80.0-96.0); MONO # 0.5 10^3/uL (0.0-0.8); MONO % 6.5 % (2.0-8.0); NEUTROPHILS # 6.9 10^3/uL (1.5-8.5); NEUTROPHILS % 85.6 % (36.0-66.0); PLATELET COUNT, AUTOMATED 121 10^3/uL (150-450); RED BLOOD COUNT 2.92 10^6/uL (4.00-5.40); WHITE BLOOD COUNT 8.1 10^3/uL (4.0-10.0)
[2023-07-25 06:42] LABS: ALBUMIN 2.8 G/DL (3.2-5.2); BLOOD UREA NITROGEN 68 MG/DL (9-23); CALCIUM LEVEL 8.3 MG/DL (8.3-10.6); CARBON DIOXIDE LEVEL 25 MMOL/L (20-31); CHLORIDE LEVEL 99 MMOL/L (98-107); CREATININE FOR GFR 5.85 MG/DL (0.55-1.30); GLOMERULAR FILTRATION RATE 7.4 (>39); GLUCOSE, FASTING 96 MG/DL (74-106); PHOSPHORUS LEVEL 5.6 MG/DL (2.4-5.1); POTASSIUM SERUM 4.5 MMOL/L (3.5-5.1); SODIUM LEVEL 134 MMOL/L (136-145)
[2023-07-25 07:06] LABS: HEPATITIS B SURFACE ANTIBODY POSITIVE (POSITIVE)
[2023-07-25 07:39] LABS: HEPATITIS B CORE ANTIBODY IGM NEGATIVE (NEGATIVE)
[2023-07-25] MEDS: CALCIUM ACETATE 667MG GELCAP PO SCH (08:00)
[2023-07-25] MEDS ORDERED: LevoFLOXacin IV 750 MG in IV 1 EA IV SCH (10:05)
[2023-07-25 14:10] VITALS: BP 141/67; TEMP 98.1; O2SAT 96
[2023-07-25] MEDS: LevoFLOXacin 250 MG TABLET PO SCH (16:08)
[2023-07-25 20:02] VITALS: BP 159/72; TEMP 97.5; O2SAT 92
[2023-07-26 06:00] VITALS: BP 144/64; TEMP 98.6; O2SAT 95
[2023-07-26] MEDS: ONDANSETRON 4MG 2ML VIAL IV PRN (06:39)
[2023-07-26 06:56] LABS: BASO % 0.5 % (0.0-1.0); EOS % 0.6 % (0.0-3.0); HEMATOCRIT 28.5 % (36.0-47.0); HEMOGLOBIN 9.5 g/dl (12.0-15.5); LYMPH # 0.7 10^3/uL (1.5-5.0); LYMPH % 10.2 % (24.0-44.0); MEAN CORPUSCULAR HEMOGLOBIN 33.2 pg (27.0-33.0); MEAN CORPUSCULAR HGB CONC 33.3 g/dl (32.0-36.5); MEAN CORPUSCULAR VOLUME 99.7 fl (80.0-96.0); MONO # 0.6 10^3/uL (0.0-0.8); MONO % 8.6 % (2.0-8.0); NEUTROPHILS # 5.3 10^3/uL (1.5-8.5); NEUTROPHILS % 79.5 % (36.0-66.0); PLATELET COUNT, AUTOMATED 124 10^3/uL (150-450); RED BLOOD COUNT 2.86 10^6/uL (4.00-5.40); WHITE BLOOD COUNT 6.7 10^3/uL (4.0-10.0)
[2023-07-26 07:22] LABS: CALCIUM LEVEL 8.2 MG/DL (8.3-10.6); CREATININE FOR GFR 3.83 MG/DL (0.55-1.30); GLOMERULAR FILTRATION RATE 12.1 (>39); POTASSIUM SERUM 3.8 MMOL/L (3.5-5.1)
[2023-07-26] MEDS: LOSARTAN 25 MG TAB PO SCH (09:22)
[2023-07-26 14:53] VITALS: BP 160/66; TEMP 97.9; O2SAT 100
[2023-07-26 20:08] VITALS: BP 134/61; TEMP 98.6; O2SAT 96
[2023-07-26] MEDS: SENOKOT S TAB PO SCH (20:56)
[2023-07-27 05:00] VITALS: BP_SYST 144; BP_DIAS 62; BP_DIAS 68; TEMP 97.9; O2SAT 93
[2023-07-27 05:59] LABS: BASO % 0.5 % (0.0-1.0); EOS # 0.1 10^3/uL (0.0-0.5); EOS % 2.2 % (0.0-3.0); HEMATOCRIT 28.3 % (36.0-47.0); HEMOGLOBIN 9.3 g/dl (12.0-15.5); LYMPH # 0.9 10^3/uL (1.5-5.0); LYMPH % 14.8 % (24.0-44.0); MEAN CORPUSCULAR HEMOGLOBIN 33.6 pg (27.0-33.0); MEAN CORPUSCULAR HGB CONC 32.9 g/dl (32.0-36.5); MEAN CORPUSCULAR VOLUME 102.2 fl (80.0-96.0); MONO # 0.6 10^3/uL (0.0-0.8); MONO % 9.7 % (2.0-8.0); NEUTROPHILS # 4.3 10^3/uL (1.5-8.5); NEUTROPHILS % 71.8 % (36.0-66.0); PLATELET COUNT, AUTOMATED 133 10^3/uL (150-450); RED BLOOD COUNT 2.77 10^6/uL (4.00-5.40)
[2023-07-27] MEDS ORDERED: LIDOCAINE 1% SDV 5ML VIAL SC PRN (06:00)
[2023-07-27] MEDS ORDERED: SODIUM CHLORIDE 0.9% 1000ML IV PRN (06:00)
[2023-07-27] MEDS ORDERED: HEPARIN 1,000UNITS/ML 10ML VIAL (FOR RADIOLOGY & DIALYSIS ONLY) XX SCH (06:00)
[2023-07-27 06:25] LABS: CALCIUM LEVEL 8.7 MG/DL (8.3-10.6); CREATININE FOR GFR 4.92 MG/DL (0.55-1.30); GLOMERULAR FILTRATION RATE 9.1 (>39); POTASSIUM SERUM 4.5 MMOL/L (3.5-5.1)
[2023-07-27] MEDS: DARBEPOETIN 100MCG/0.5ML *DIALYSIS* SYRINGE IV SCH (11:19)
[2023-07-27 14:00] VITALS: BP 131/60; TEMP 97.5; O2SAT 98
[2023-07-27] MEDS: MIRALAX *UNIT DOSE* 17GM PACKET PO PRN (16:45)
[2023-07-28 05:23] VITALS: BP 153/93
[2023-07-28 06:00] VITALS: BP 153/93; TEMP 98.2; O2SAT 95
[2023-07-28] MEDS ORDERED: HEPARIN 1,000UNITS/ML 10ML VIAL (FOR RADIOLOGY & DIALYSIS ONLY) XX SCH (06:00)
[2023-07-28] MEDS ORDERED: SODIUM CHLORIDE 0.9% 1000ML IV PRN (06:00)
[2023-07-28 07:02] LABS: BASO # 0.1 10^3/uL (0.0-0.2); BASO % 0.8 % (0.0-1.0); EOS # 0.1 10^3/uL (0.0-0.5); EOS % 1.9 % (0.0-3.0); HEMATOCRIT 29.2 % (36.0-47.0); HEMOGLOBIN 9.5 g/dl (12.0-15.5); LYMPH % 16.2 % (24.0-44.0); MEAN CORPUSCULAR HEMOGLOBIN 33.1 pg (27.0-33.0); MEAN CORPUSCULAR HGB CONC 32.5 g/dl (32.0-36.5); MEAN CORPUSCULAR VOLUME 101.7 fl (80.0-96.0); MONO # 0.5 10^3/uL (0.0-0.8); MONO % 8.6 % (2.0-8.0); NEUTROPHILS # 4.5 10^3/uL (1.5-8.5); NEUTROPHILS % 70.6 % (36.0-66.0); PLATELET COUNT, AUTOMATED 142 10^3/uL (150-450); RED BLOOD COUNT 2.87 10^6/uL (4.00-5.40); WHITE BLOOD COUNT 6.3 10^3/uL (4.0-10.0)
[2023-07-28 07:30] LABS: CALCIUM LEVEL 8.6 MG/DL (8.3-10.6); CREATININE FOR GFR 3.41 MG/DL (0.55-1.30); GLOMERULAR FILTRATION RATE 13.9 (>39); POTASSIUM SERUM 4.2 MMOL/L (3.5-5.1)
[2023-07-28] MEDS ORDERED: LOSA50TA28 PO (11:31)
[2023-07-28] MEDS ORDERED: LEVO1TAB38 PO (12:14)
[2023-07-28] MEDS ORDERED: LOSA25TA13 PO (12:40)
[2023-07-28 14:00] VITALS: BP 131/52; TEMP 97.9; O2SAT 100
[2023-07-28 22:00] VITALS: BP 132/57; TEMP 98.6; O2SAT 99
[2023-07-29 05:48] VITALS: BP_SYST 139; BP_SYST 150; BP_DIAS 61; BP_DIAS 84; TEMP 98.1; TEMP 98.4; O2SAT 87; O2SAT 94
[2023-07-29 06:15] LABS: BASO % 0.6 % (0.0-1.0); EOS # 0.2 10^3/uL (0.0-0.5); EOS % 2.6 % (0.0-3.0); HEMATOCRIT 32.2 % (36.0-47.0); HEMOGLOBIN 10.9 g/dl (12.0-15.5); LYMPH # 1.1 10^3/uL (1.5-5.0); LYMPH % 17.6 % (24.0-44.0); MEAN CORPUSCULAR HEMOGLOBIN 33.9 pg (27.0-33.0); MEAN CORPUSCULAR HGB CONC 33.9 g/dl (32.0-36.5); MONO # 0.5 10^3/uL (0.0-0.8); MONO % 8.3 % (2.0-8.0); NEUTROPHILS # 4.5 10^3/uL (1.5-8.5); NEUTROPHILS % 68.9 % (36.0-66.0); PLATELET COUNT, AUTOMATED 171 10^3/uL (150-450); RED BLOOD COUNT 3.22 10^6/uL (4.00-5.40); WHITE BLOOD COUNT 6.5 10^3/uL (4.0-10.0)
[2023-07-29 07:24] LABS: CALCIUM LEVEL 9.1 MG/DL (8.3-10.6); CREATININE FOR GFR 3.19 MG/DL (0.55-1.30); POTASSIUM SERUM 3.9 MMOL/L (3.5-5.1)
[2023-07-29] MEDS: PREVNAR-20 VACCINE 0.5ML SYRINGE IM.IMMUN ONE (09:32)
== END 2023-07-29 10:20 | disposition home or self-care (01) | DRG 291 ==
LOC: M MS5PR 16:30
PROVIDERS: ADMIT Internal Medicine Nephrology; ATTEND Internal Medicine Nephrology
PROC: 5A1D70Z Performance of Urinary Filtration, Intermittent, Less than 6 Hours Per Day (ICD-10-PCS; principal; 2023-07-24)
DX: I13.2 Hypertensive heart and chronic kidney disease with heart failure and with stage 5 chronic kidney disease, or end stage renal disease (principal); I50.33 Acute on chronic diastolic (congestive) heart failure; N18.6 End stage renal disease; J90 Pleural effusion, not elsewhere classified; J98.11 Atelectasis; Z99.2 Dependence on renal dialysis; E11.22 Type 2 diabetes mellitus with diabetic chronic kidney disease; E11.40 Type 2 diabetes mellitus with diabetic neuropathy, unspecified; M06.9 Rheumatoid arthritis, unspecified; K21.9 Gastro-esophageal reflux disease without esophagitis; E55.9 Vitamin D deficiency, unspecified; M81.0 Age-related osteoporosis without current pathological fracture; D63.1 Anemia in chronic kidney disease; R29.6 Repeated falls; R26.89 Other abnormalities of gait and mobility; G89.29 Other chronic pain; M54.9 Dorsalgia, unspecified; E04.2 Nontoxic multinodular goiter; M50.30 Other cervical disc degeneration, unspecified cervical region; I95.1 Orthostatic hypotension; G31.84 Mild cognitive impairment of uncertain or unknown etiology; J20.9 Acute bronchitis, unspecified; Z79.4 Long term (current) use of insulin; Z79.899 Other long term (current) drug therapy; Z88.0 Allergy status to penicillin; Z88.1 Allergy status to other antibiotic agents; Z91.158 Patient's noncompliance with renal dialysis for other reason; K59.00 Constipation, unspecified

== ENCOUNTER 2024-12-18 13:14 | Inpatient (IN) | payer MEDICARE ==
[~2024-12-18] VITALS: Ht 154.9 cm; Wt 53.5 kg
[~2024-12-18 13:14] MED LIST changes: -BAYE325T12 PO; +BAYE325T2 PO; +CALC667T4 PO; +CARB15DR25 AU; -CARBOT AU; +LEVO1TAB38 PO; +LORA-1164 PO; -LORA-622 PO; +LOSA100T46 PO
[2024-12-18 14:49] LABS: PLATELET COUNT, AUTOMATED 160 10^3/uL (150-450)
[2024-12-18 15:08] LABS: CALCIUM LEVEL 7.5 MG/DL (8.3-10.6); CARBON DIOXIDE LEVEL 31.0 MMOL/L (20-31); CHLORIDE LEVEL 98.0 MMOL/L (98-107); CREATININE FOR GFR 3.71 MG/DL (0.55-1.30); GLOMERULAR FILTRATION RATE 11.8 (>32); POTASSIUM SERUM 4.2 MMOL/L (3.5-5.1); SODIUM LEVEL 142.0 MMOL/L (136-145)
[2024-12-18] MEDS ORDERED: CALC1CAP PO (16:17)
[2024-12-18] MEDS ORDERED: HOME MED LIST COMPLETE! XX SCH (16:20)
[2024-12-18] MEDS: amLODIPine 5 MG TAB PO SCH (16:37)
[2024-12-18 17:36] VITALS: BP 178/86; TEMP 97.8; O2SAT 100
[2024-12-18 19:45] VITALS: BP 208/87
[2024-12-18 19:54] VITALS: BP 205/78; TEMP 97.1; O2SAT 100
[2024-12-18] MEDS: HEPARIN SOD 5000 UNITS/ML 1 ML VIAL/SYRINGE SC SCH (19:59)
[2024-12-18 20:00] VITALS: BP_SYST 178; BP_SYST 194; BP_DIAS 81; BP_DIAS 86; TEMP 97.8; O2SAT 100
[2024-12-18] MEDS: hydrALAZINE 20 MG/ML 1 ML VIAL IV PRN (20:01)
[2024-12-18] MEDS: LABETALOL 100 MG/20 ML VIAL IV STA (21:57)
[2024-12-18] MEDS: **hydrALAZINE** 50 MG TAB PO SCH (22:13)
[2024-12-18 22:14] VITALS: BP 168/72
[2024-12-18 23:01] VITALS: BP 153/68; TEMP 97.8; O2SAT 100
[2024-12-19] VITALS (10 sets, daily range): BP systolic 142–179; BP diastolic 62–92; TEMP 97–98.6; O2SAT 100
[2024-12-19 05:42] LABS: BASO # 0.0 10^3/uL (0.0-0.2); BASO % 0.7 % (0.0-1.0); EOS # 0.1 10^3/uL (0.0-0.5); EOS % 2.3 % (0.0-3.0); LYMPH # 1.1 10^3/uL (1.5-5.0); LYMPH % 25.6 % (24.0-44.0); MONO # 0.5 10^3/uL (0.0-0.8); MONO % 10.4 % (2.0-8.0); NEUTROPHILS # 2.7 10^3/uL (1.5-8.5); NEUTROPHILS % 60.5 % (36.0-66.0); PLATELET COUNT, AUTOMATED 150 10^3/uL (150-450)
[2024-12-19 06:14] LABS: ALT/SGPT 29.0 U/L (7.0-40); AST/SGOT 28.0 U/L (<34); CALCIUM LEVEL 8.0 MG/DL (8.3-10.6); CARBON DIOXIDE LEVEL 31.0 MMOL/L (20-31); CHLORIDE LEVEL 99.0 MMOL/L (98-107); CREATININE FOR GFR 4.41 MG/DL (0.55-1.30); GLOMERULAR FILTRATION RATE 9.6 (>32); POTASSIUM SERUM 4.1 MMOL/L (3.5-5.1); SODIUM LEVEL 142.0 MMOL/L (136-145)
[2024-12-19] MEDS ORDERED: amLODIPine 10 MG TAB PO SCH (09:00)
[2024-12-19] MEDS ORDERED: HEPARIN 1,000 UNITS/ML 10 ML VIAL (FOR RADIOLOGY & DIALYSIS ONLY) XX SCH (09:40)
[2024-12-19] MEDS ORDERED: LIDOCAINE 1% SDV 5 ML VIAL SC PRN (09:40)
[2024-12-19] MEDS ORDERED: SODIUM CHLORIDE 0.9% 1000 ML IV PRN (09:40)
[2024-12-19] MEDS ORDERED: HEPARIN 1,000 UNITS/ML 10 ML VIAL (FOR RADIOLOGY & DIALYSIS ONLY) IV PRN (09:40)
[2024-12-19] MEDS: CALCIUM ACETATE 667 MG GELCAP PO SCH (15:09)
[2024-12-19] MEDS ORDERED: DEXTROSE 50% 50 ML SYRINGE IV PRN (16:10)
[2024-12-19] MEDS ORDERED: GLUCOSE 4 GM CHEW PO PRN (16:10)
[2024-12-19] MEDS ORDERED: GLUCAGON INJ 1 MG VIAL SC PRN (16:10)
[2024-12-19] MEDS ORDERED: CETIRIZINE 10 MG TAB PO PRN (16:10)
[2024-12-19 17:35] LABS: ESTIMATED AVERAGE GLUCOSE 123.0 MG/DL (60-110)
[2024-12-19] MEDS: INSULIN LISPRO (NovoLOG) PER UNIT SC SCH ×2 (18:47→21:00)
[2024-12-20] VITALS: BP 158/72; TEMP 97.4; O2SAT 100
[2024-12-20 03:00] VITALS: BP 162/70; TEMP 98.1; O2SAT 100
[2024-12-20 04:00] VITALS: BP 162/70; TEMP 98.1; O2SAT 100
[2024-12-20] MEDS ORDERED: SODIUM CHLORIDE 0.9% 1000 ML IV PRN (06:00)
[2024-12-20] MEDS ORDERED: HEPARIN 1,000 UNITS/ML 10 ML VIAL (FOR RADIOLOGY & DIALYSIS ONLY) IV PRN (06:00)
[2024-12-20] MEDS ORDERED: LIDOCAINE 1% SDV 5 ML VIAL SC PRN (06:00)
[2024-12-20 06:03] LABS: PLATELET COUNT, AUTOMATED 160 10^3/uL (150-450)
[2024-12-20 06:35] LABS: CALCIUM LEVEL 8.5 MG/DL (8.3-10.6); CARBON DIOXIDE LEVEL 30 MMOL/L (20-31); CHLORIDE LEVEL 94 MMOL/L (98-107); CREATININE FOR GFR 3.41 MG/DL (0.55-1.30); GLOMERULAR FILTRATION RATE 13.1 (>32); MAGNESIUM LEVEL 2.3 MG/DL (1.8-2.4); POTASSIUM SERUM 4.6 MMOL/L (3.5-5.1); SODIUM LEVEL 137 MMOL/L (136-145)
[2024-12-20] MEDS: CINACALCET 30 MG TAB PO SCH (08:06)
[2024-12-20] MEDS: **hydrALAZINE HCL** 25 MG TAB PO SCH (08:09)
[2024-12-20] MEDS: LOSARTAN 50 MG TABLET PO SCH (08:11)
[2024-12-20 08:20] VITALS: BP 190/76; TEMP 97.6; O2SAT 100
[2024-12-20] MEDS: HEPARIN 1,000 UNITS/ML 10 ML VIAL (FOR RADIOLOGY & DIALYSIS ONLY) XX SCH (09:30)
[2024-12-20 10:35] LABS: FREE T4 1.15 NG/DL (0.89-1.76)
[2024-12-20 10:36] LABS: VITAMIN B12 LEVEL 620 PG/ML (211-911)
[2024-12-20 12:46] VITALS: BP 142/65; TEMP 97.5; O2SAT 100
[2024-12-20 20:07] VITALS: BP 145/65; TEMP 97.2; O2SAT 99
[2024-12-21 05:34] LABS: PLATELET COUNT, AUTOMATED 135 10^3/uL (150-450)
[2024-12-21] MEDS ORDERED: LIDOCAINE 1% SDV 5 ML VIAL SC PRN (06:00)
[2024-12-21] MEDS ORDERED: SODIUM CHLORIDE 0.9% 1000 ML IV PRN (06:00)
[2024-12-21] MEDS ORDERED: HEPARIN 1,000 UNITS/ML 10 ML VIAL (FOR RADIOLOGY & DIALYSIS ONLY) XX SCH (06:00)
[2024-12-21] MEDS ORDERED: HEPARIN 1,000 UNITS/ML 10 ML VIAL (FOR RADIOLOGY & DIALYSIS ONLY) IV PRN (06:00)
[2024-12-21 06:02] LABS: CALCIUM LEVEL 7.9 MG/DL (8.3-10.6); CARBON DIOXIDE LEVEL 29.0 MMOL/L (20-31); CHLORIDE LEVEL 95.0 MMOL/L (98-107); CREATININE FOR GFR 3.4 MG/DL (0.55-1.30); GLOMERULAR FILTRATION RATE 13.1 (>32); MAGNESIUM LEVEL 2.1 MG/DL (1.8-2.4); POTASSIUM SERUM 4.5 MMOL/L (3.5-5.1); SODIUM LEVEL 136.0 MMOL/L (136-145)
[2024-12-21 08:02] VITALS: BP 118/65; TEMP 98.9; O2SAT 98
[2024-12-21 12:12] VITALS: BP 164/63; TEMP 96.8; O2SAT 100
[2024-12-21 15:10] VITALS: BP 123/61; TEMP 97; O2SAT 100
[2024-12-22 05:17] VITALS: BP 136/61; TEMP 97.7; O2SAT 100
[2024-12-22] MEDS ORDERED: SODIUM CHLORIDE 0.9% 1000 ML IV PRN (06:00)
[2024-12-22] MEDS ORDERED: HEPARIN 1,000 UNITS/ML 10 ML VIAL (FOR RADIOLOGY & DIALYSIS ONLY) IV PRN (06:00)
[2024-12-22] MEDS ORDERED: LIDOCAINE 1% SDV 5 ML VIAL SC PRN (06:00)
[2024-12-22] MEDS: HEPARIN 1,000 UNITS/ML 10 ML VIAL (FOR RADIOLOGY & DIALYSIS ONLY) XX SCH (10:55)
[2024-12-22 16:33] VITALS: BP 124/54; TEMP 97.2; O2SAT 100
[2024-12-23 03:43] VITALS: BP 129/51; TEMP 97.3; O2SAT 99
[2024-12-23] MEDS ORDERED: MIRALAX *UNIT DOSE* 17 GM PACKET PO PRN (13:25)
[2024-12-23] MEDS ORDERED: MOM 30 ML SUSPENSION UDC PO PRN (13:25)
[2024-12-23] MEDS: ACETAMINOPHEN 325 MG TAB PO PRN (18:33)
[2024-12-24 04:36] VITALS: BP 144/56; TEMP 97; O2SAT 100
[2024-12-24] MEDS ORDERED: HEPARIN 1,000 UNITS/ML 10 ML VIAL (FOR RADIOLOGY & DIALYSIS ONLY) XX SCH (06:00)
[2024-12-24] MEDS ORDERED: SODIUM CHLORIDE 0.9% 1000 ML IV PRN (06:00)
[2024-12-24] MEDS ORDERED: LIDOCAINE 1% SDV 5 ML VIAL SC PRN (06:00)
[2024-12-24] MEDS: HEPARIN 1,000 UNITS/ML 10 ML VIAL (FOR RADIOLOGY & DIALYSIS ONLY) IV PRN (10:07)
[2024-12-25 06:59] VITALS: BP 161/68; TEMP 96.8; O2SAT 100
[2024-12-26 03:16] VITALS: BP 147/57; TEMP 96.8; O2SAT 100
[2024-12-27 03:40] VITALS: BP 103/41; TEMP 97.2; O2SAT 99
[2024-12-27] MEDS ORDERED: HEPARIN 1,000 UNITS/ML 10 ML VIAL (FOR RADIOLOGY & DIALYSIS ONLY) IV PRN (06:00)
[2024-12-27] MEDS ORDERED: SODIUM CHLORIDE 0.9% 1000 ML IV PRN (06:00)
[2024-12-27] MEDS ORDERED: LIDOCAINE 1% SDV 5 ML VIAL SC PRN (06:00)
[2024-12-27] MEDS: HEPARIN 1,000 UNITS/ML 10 ML VIAL (FOR RADIOLOGY & DIALYSIS ONLY) XX SCH (09:08)
[2024-12-28 06:15] VITALS: BP 160/64; TEMP 97; O2SAT 99
[2024-12-28 15:10] VITALS: BP 148/60
[2024-12-29 05:44] VITALS: BP 178/65; TEMP 97; O2SAT 100
[2024-12-29] MEDS ORDERED: SODIUM CHLORIDE 0.9% 1000 ML IV PRN (06:00)
[2024-12-29] MEDS ORDERED: HEPARIN 1,000 UNITS/ML 10 ML VIAL (FOR RADIOLOGY & DIALYSIS ONLY) IV PRN (06:00)
[2024-12-29 07:50] VITALS: BP 166/61; TEMP 97.2; O2SAT 100
[2024-12-29] MEDS: HEPARIN 1,000 UNITS/ML 10 ML VIAL (FOR RADIOLOGY & DIALYSIS ONLY) XX SCH (08:28)
[2024-12-30 05:05] VITALS: BP 165/82; TEMP 97.2; O2SAT 98
[2024-12-31] MEDS ORDERED: LIDOCAINE 1% SDV 5 ML VIAL SC PRN (06:00)
[2024-12-31] MEDS ORDERED: HEPARIN 1,000 UNITS/ML 10 ML VIAL (FOR RADIOLOGY & DIALYSIS ONLY) IV PRN (06:00)
[2024-12-31] MEDS ORDERED: SODIUM CHLORIDE 0.9% 1000 ML IV PRN (06:00)
[2024-12-31 06:22] VITALS: BP 166/67; TEMP 97; O2SAT 92
[2024-12-31] MEDS: HEPARIN 1,000 UNITS/ML 10 ML VIAL (FOR RADIOLOGY & DIALYSIS ONLY) XX SCH (09:26)
[2024-12-31] MEDS: RAMELTEON 8 MG TAB PO PRN (22:50)
[2025-01-01 04:02] VITALS: BP 132/52; TEMP 97; O2SAT 95
[2025-01-02 05:09] VITALS: BP 163/69; TEMP 97.2; O2SAT 100
[2025-01-03 05:17] VITALS: BP 176/60; TEMP 97; O2SAT 99
[2025-01-03] MEDS ORDERED: HEPARIN 1,000 UNITS/ML 10 ML VIAL (FOR RADIOLOGY & DIALYSIS ONLY) IV PRN (06:00)
[2025-01-03] MEDS ORDERED: SODIUM CHLORIDE 0.9% 1000 ML IV PRN (06:00)
[2025-01-03 06:49] LABS: BASO # 0.1 10^3/uL (0.0-0.2); BASO % 0.9 % (0.0-1.0); EOS # 0.1 10^3/uL (0.0-0.5); EOS % 1.9 % (0.0-3.0); LYMPH # 1.6 10^3/uL (1.5-5.0); LYMPH % 29.7 % (24.0-44.0); MONO # 0.5 10^3/uL (0.0-0.8); MONO % 9.6 % (2.0-8.0); NEUTROPHILS # 3.1 10^3/uL (1.5-8.5); NEUTROPHILS % 57.3 % (36.0-66.0); PLATELET COUNT, AUTOMATED 175 10^3/uL (150-450)
[2025-01-03 07:49] LABS: CALCIUM LEVEL 8.7 MG/DL (8.3-10.6); CARBON DIOXIDE LEVEL 20.0 MMOL/L (20-31); CHLORIDE LEVEL 90.0 MMOL/L (98-107); CREATININE FOR GFR 6.33 MG/DL (0.55-1.30); GLOMERULAR FILTRATION RATE 6.2 (>32); MAGNESIUM LEVEL 2.5 MG/DL (1.8-2.4); PHOSPHORUS LEVEL 5.4 MG/DL (2.4-5.1); POTASSIUM SERUM 7.4 MMOL/L (3.5-5.1); SODIUM LEVEL 125.0 MMOL/L (136-145)
[2025-01-03 07:50] VITALS: BP 136/60
[2025-01-03] MEDS: HEPARIN 1,000 UNITS/ML 10 ML VIAL (FOR RADIOLOGY & DIALYSIS ONLY) XX SCH (10:01)
[2025-01-04 05:54] VITALS: BP 139/46; TEMP 97.2; O2SAT 100
[2025-01-05 05:40] VITALS: BP 176/70; TEMP 97; O2SAT 100
[2025-01-05] MEDS ORDERED: SODIUM CHLORIDE 0.9% 1000 ML IV PRN (06:00)
[2025-01-05] MEDS ORDERED: HEPARIN 1,000 UNITS/ML 10 ML VIAL (FOR RADIOLOGY & DIALYSIS ONLY) IV PRN (06:00)
[2025-01-05] MEDS ORDERED: LIDOCAINE 1% SDV 5 ML VIAL SC PRN (06:00)
[2025-01-05] MEDS: HEPARIN 1,000 UNITS/ML 10 ML VIAL (FOR RADIOLOGY & DIALYSIS ONLY) XX SCH (09:12)
[2025-01-05 19:33] VITALS: BP 179/63; TEMP 97.5; O2SAT 94
[2025-01-06 02:12] VITALS: BP 179/75; O2SAT 69
[2025-01-06 06:19] VITALS: BP 177/65; TEMP 97.6; O2SAT 98
[2025-01-06 19:22] VITALS: BP 188/75; TEMP 97.3; O2SAT 94
[2025-01-07 03:46] VITALS: BP 155/61; TEMP 97.2; O2SAT 98
[2025-01-07] MEDS ORDERED: HEPARIN 1,000 UNITS/ML 10 ML VIAL (FOR RADIOLOGY & DIALYSIS ONLY) IV PRN (06:30)
[2025-01-07] MEDS ORDERED: LIDOCAINE 1% SDV 5 ML VIAL SC PRN (06:30)
[2025-01-07] MEDS ORDERED: SODIUM CHLORIDE 0.9% 1000 ML IV PRN (06:30)
[2025-01-07] MEDS: HEPARIN 1,000 UNITS/ML 10 ML VIAL (FOR RADIOLOGY & DIALYSIS ONLY) XX SCH (10:45)
[2025-01-07 13:15] VITALS: BP 156/78; TEMP 97.5; O2SAT 100
[2025-01-07 20:00] VITALS: BP 156/78; TEMP 97.5; O2SAT 100
[2025-01-08 03:35] VITALS: BP 151/58; TEMP 97.3; O2SAT 97
[2025-01-09 06:25] VITALS: BP 167/57; TEMP 97.3; O2SAT 97
[2025-01-10] VITALS (13 sets, daily range): BP systolic 105–174; BP diastolic 60–73; TEMP 97.5–97.8; O2SAT 97–99
[2025-01-10] MEDS ORDERED: SODIUM CHLORIDE 0.9% 1000 ML IV PRN (06:00)
[2025-01-10] MEDS ORDERED: HEPARIN 1,000 UNITS/ML 10 ML VIAL (FOR RADIOLOGY & DIALYSIS ONLY) IV PRN (06:00)
[2025-01-10] MEDS ORDERED: LIDOCAINE 1% SDV 5 ML VIAL SC PRN (06:00)
[2025-01-10 06:25] LABS: PLATELET COUNT, AUTOMATED 150 10^3/uL (150-450)
[2025-01-10 06:58] LABS: CALCIUM LEVEL 8.3 MG/DL (8.3-10.6); CARBON DIOXIDE LEVEL 20.0 MMOL/L (20-31); CHLORIDE LEVEL 100.0 MMOL/L (98-107); CREATININE FOR GFR 6.31 MG/DL (0.55-1.30); GLOMERULAR FILTRATION RATE 6.2 (>32); PHOSPHORUS LEVEL 5.3 MG/DL (2.4-5.1); POTASSIUM SERUM 8.1 MMOL/L (3.5-5.1); SODIUM LEVEL 132.0 MMOL/L (136-145)
[2025-01-10] MEDS: HumuLIN R (REGULAR) INSULIN (NovoLIN R) **100 U/ML** PER UNIT IV STA (08:04)
[2025-01-10] MEDS: DEXTROSE 50% 50 ML SYRINGE IV STA (08:04)
[2025-01-10] MEDS: CALCIUM GLUCONATE 1,000 MG in DEXTROSE 5% (D5W) MINI-BAG PLU 100 ML IV ONE ×2 (08:05→15:40)
[2025-01-10] MEDS: **hydrALAZINE** 50 MG TAB PO SCH ×2 (08:21→17:35)
[2025-01-10] MEDS: amLODIPine 5 MG TAB PO ONE (09:59)
[2025-01-10 11:30] LABS: CALCIUM LEVEL 8.6 MG/DL (8.3-10.6); CARBON DIOXIDE LEVEL 20.0 MMOL/L (20-31); CHLORIDE LEVEL 98.0 MMOL/L (98-107); CREATININE FOR GFR 6.67 MG/DL (0.55-1.30); GLOMERULAR FILTRATION RATE 5.8 (>32); POTASSIUM SERUM 7.5 MMOL/L (3.5-5.1); SODIUM LEVEL 132.0 MMOL/L (136-145)
[2025-01-10] MEDS: HEPARIN 1,000 UNITS/ML 10 ML VIAL (FOR RADIOLOGY & DIALYSIS ONLY) XX SCH (12:08)
[2025-01-10] MEDS: DARBEPOETIN 100 MCG/0.5 ML *DIALYSIS* SYRINGE IV SCH (14:12)
[2025-01-10] MEDS: LABETALOL 100 MG/20 ML VIAL IV STA (16:28)
[2025-01-10 16:30] LABS: CALCIUM LEVEL 8.9 MG/DL (8.3-10.6); CARBON DIOXIDE LEVEL 25.0 MMOL/L (20-31); CHLORIDE LEVEL 104.0 MMOL/L (98-107); CREATININE FOR GFR 2.92 MG/DL (0.55-1.30); GLOMERULAR FILTRATION RATE 15.7 (>32); POTASSIUM SERUM 4.4 MMOL/L (3.5-5.1); SODIUM LEVEL 141.0 MMOL/L (136-145)
[2025-01-11] VITALS (12 sets, daily range): BP systolic 107–177; BP diastolic 61–74; TEMP 97.2–98.1; O2SAT 97–100
[2025-01-11 05:24] LABS: CALCIUM LEVEL 8.5 MG/DL (8.3-10.6); CARBON DIOXIDE LEVEL 24.0 MMOL/L (20-31); CHLORIDE LEVEL 102.0 MMOL/L (98-107); CREATININE FOR GFR 4.3 MG/DL (0.55-1.30); GLOMERULAR FILTRATION RATE 9.9 (>32); POTASSIUM SERUM 5.5 MMOL/L (3.5-5.1); SODIUM LEVEL 138.0 MMOL/L (136-145)
[2025-01-11] MEDS ORDERED: SODIUM CHLORIDE 0.9% 1000 ML IV PRN (07:00)
[2025-01-11] MEDS ORDERED: LIDOCAINE 1% SDV 5 ML VIAL SC PRN (07:00)
[2025-01-11] MEDS ORDERED: HEPARIN 1,000 UNITS/ML 10 ML VIAL (FOR RADIOLOGY & DIALYSIS ONLY) IV PRN (07:00)
[2025-01-11] MEDS: amLODIPine 10 MG TAB PO SCH (09:03)
[2025-01-11] MEDS: HEPARIN 1,000 UNITS/ML 10 ML VIAL (FOR RADIOLOGY & DIALYSIS ONLY) XX SCH (14:12)
[2025-01-12 06:14] VITALS: BP 133/52; TEMP 97.3; O2SAT 93
[2025-01-12 06:56] LABS: CALCIUM LEVEL 8.5 MG/DL (8.3-10.6); CARBON DIOXIDE LEVEL 25.0 MMOL/L (20-31); CHLORIDE LEVEL 103.0 MMOL/L (98-107); CREATININE FOR GFR 3.61 MG/DL (0.55-1.30); GLOMERULAR FILTRATION RATE 12.2 (>32); POTASSIUM SERUM 4.9 MMOL/L (3.5-5.1); SODIUM LEVEL 139.0 MMOL/L (136-145)
[2025-01-12 12:00] VITALS: BP 157/51; TEMP 97.5; O2SAT 98
[2025-01-12 20:09] VITALS: BP 153/73; TEMP 97.3; O2SAT 100
[2025-01-13 05:08] VITALS: BP 133/55; TEMP 97.5; O2SAT 99
[2025-01-13] MEDS ORDERED: SODIUM CHLORIDE 0.9% 1000 ML IV PRN (06:00)
[2025-01-13] MEDS ORDERED: HEPARIN 1,000 UNITS/ML 10 ML VIAL (FOR RADIOLOGY & DIALYSIS ONLY) XX SCH (06:00)
[2025-01-13] MEDS ORDERED: LIDOCAINE 1% SDV 5 ML VIAL SC PRN (06:00)
[2025-01-13 06:16] VITALS: BP 130/53; TEMP 97.7; O2SAT 98
[2025-01-13 06:46] LABS: CALCIUM LEVEL 8.5 MG/DL (8.3-10.6); CARBON DIOXIDE LEVEL 23.0 MMOL/L (20-31); CHLORIDE LEVEL 102.0 MMOL/L (98-107); CREATININE FOR GFR 4.93 MG/DL (0.55-1.30); GLOMERULAR FILTRATION RATE 8.4 (>32); POTASSIUM SERUM 5.7 MMOL/L (3.5-5.1); SODIUM LEVEL 136.0 MMOL/L (136-145)
[2025-01-13] MEDS: HEPARIN 1,000 UNITS/ML 10 ML VIAL (FOR RADIOLOGY & DIALYSIS ONLY) IV PRN (09:38)
[2025-01-13 13:15] VITALS: BP 102/80; TEMP 97.3; O2SAT 98
[2025-01-13 20:16] VITALS: BP 125/73; TEMP 97.3; O2SAT 97
[2025-01-13] MEDS: SENNOSIDES/DOCUSATE SODIUM 8.6 MG/50MG TAB PO PRN (20:26)
[2025-01-14 06:30] VITALS: BP 137/53; TEMP 97.9; O2SAT 95
[2025-01-14 06:46] LABS: PLATELET COUNT, AUTOMATED 177 10^3/uL (150-450)
[2025-01-14 07:12] LABS: CALCIUM LEVEL 8.4 MG/DL (8.3-10.6); CARBON DIOXIDE LEVEL 24.0 MMOL/L (20-31); CHLORIDE LEVEL 102.0 MMOL/L (98-107); CREATININE FOR GFR 3.49 MG/DL (0.55-1.30); GLOMERULAR FILTRATION RATE 12.7 (>32); PHOSPHORUS LEVEL 3.2 MG/DL (2.4-5.1); POTASSIUM SERUM 4.8 MMOL/L (3.5-5.1); SODIUM LEVEL 138.0 MMOL/L (136-145)
[2025-01-14 12:05] VITALS: BP 160/65; TEMP 97.3; O2SAT 93
[2025-01-15 06:29] LABS: PLATELET COUNT, AUTOMATED 198 10^3/uL (150-450)
[2025-01-15 06:45] VITALS: BP 157/59; TEMP 97.7; O2SAT 97
[2025-01-15 07:05] LABS: CALCIUM LEVEL 8.5 MG/DL (8.3-10.6); CARBON DIOXIDE LEVEL 23.0 MMOL/L (20-31); CHLORIDE LEVEL 102.0 MMOL/L (98-107); CREATININE FOR GFR 5.18 MG/DL (0.55-1.30); GLOMERULAR FILTRATION RATE 7.9 (>32); PHOSPHORUS LEVEL 3.6 MG/DL (2.4-5.1); POTASSIUM SERUM 5.4 MMOL/L (3.5-5.1); SODIUM LEVEL 137.0 MMOL/L (136-145)
[2025-01-15] MEDS: PATIROMER SORBITEX CALCIUM 8.4GM POWDER PACKET PO ONE (12:08)
[2025-01-16 04:00] VITALS: BP 158/59; TEMP 97.5; O2SAT 98
[2025-01-16] MEDS ORDERED: HEPARIN 1,000 UNITS/ML 10 ML VIAL (FOR RADIOLOGY & DIALYSIS ONLY) XX SCH (08:20)
[2025-01-16] MEDS ORDERED: SODIUM CHLORIDE 0.9% 1000 ML IV PRN (08:20)
[2025-01-16] MEDS ORDERED: LIDOCAINE 1% SDV 5 ML VIAL SC PRN (08:20)
[2025-01-16] MEDS: HEPARIN 1,000 UNITS/ML 10 ML VIAL (FOR RADIOLOGY & DIALYSIS ONLY) IV PRN (13:03)
[2025-01-17 04:00] VITALS: BP_SYST 124; BP_SYST 154; BP_DIAS 54; BP_DIAS 66; TEMP 97.5; O2SAT 99
[2025-01-17 16:13] VITALS: BP 158/61
[2025-01-18] MEDS ORDERED: LIDOCAINE 1% SDV 5 ML VIAL SC PRN (06:00)
[2025-01-18] MEDS ORDERED: SODIUM CHLORIDE 0.9% 1000 ML IV PRN (06:00)
[2025-01-18] MEDS ORDERED: HEPARIN 1,000 UNITS/ML 10 ML VIAL (FOR RADIOLOGY & DIALYSIS ONLY) IV PRN (06:00)
[2025-01-18 06:15] VITALS: BP 130/52; TEMP 97.7; O2SAT 100
[2025-01-18] MEDS: HEPARIN 1,000 UNITS/ML 10 ML VIAL (FOR RADIOLOGY & DIALYSIS ONLY) XX SCH (10:21)
[2025-01-18 20:22] VITALS: BP 170/73; TEMP 98.1; O2SAT 99
[2025-01-18 21:46] VITALS: BP 117/66; TEMP 97.9; O2SAT 98
[2025-01-18 22:22] LABS: BASO # 0.0 10^3/uL (0.0-0.2); BASO % 0.6 % (0.0-1.0); EOS # 0.1 10^3/uL (0.0-0.5); EOS % 1.3 % (0.0-3.0); LYMPH # 1.2 10^3/uL (1.5-5.0); LYMPH % 21.7 % (24.0-44.0); MONO # 0.7 10^3/uL (0.0-0.8); MONO % 13.1 % (2.0-8.0); NEUTROPHILS # 3.4 10^3/uL (1.5-8.5); NEUTROPHILS % 62.2 % (36.0-66.0); PLATELET COUNT, AUTOMATED 237 10^3/uL (150-450)
[2025-01-18 22:40] LABS: INR 0.95
[2025-01-18 22:47] LABS: ALT/SGPT 23 U/L (7.0-40); AST/SGOT 26 U/L (<34); CALCIUM LEVEL 8.7 MG/DL (8.3-10.6); CARBON DIOXIDE LEVEL 29 MMOL/L (20-31); CHLORIDE LEVEL 95 MMOL/L (98-107); CREATININE FOR GFR 3.55 MG/DL (0.55-1.30); GLOMERULAR FILTRATION RATE 12.5 (>32); MAGNESIUM LEVEL 2.1 MG/DL (1.8-2.4); PHOSPHORUS LEVEL 3.9 MG/DL (2.4-5.1); POTASSIUM SERUM 4.7 MMOL/L (3.5-5.1); SODIUM LEVEL 136 MMOL/L (136-145)
[2025-01-18 22:56] VITALS: BP_SYST 123; BP_SYST 128; BP_SYST 138; BP_DIAS 58; BP_DIAS 60
[2025-01-19] VITALS (7 sets, daily range): BP systolic 122–175; BP diastolic 49–91; TEMP 97.2–98; O2SAT 97–100
[2025-01-20] VITALS (7 sets, daily range): BP systolic 136–156; BP diastolic 53–67; TEMP 97.2–97.8; O2SAT 98–100
[2025-01-20] MEDS ORDERED: SODIUM CHLORIDE 0.9% 1000 ML IV PRN (06:00)
[2025-01-20] MEDS ORDERED: HEPARIN 1,000 UNITS/ML 10 ML VIAL (FOR RADIOLOGY & DIALYSIS ONLY) IV PRN (06:00)
[2025-01-20] MEDS: HEPARIN 1,000 UNITS/ML 10 ML VIAL (FOR RADIOLOGY & DIALYSIS ONLY) XX SCH (09:16)
[2025-01-21 04:04] VITALS: BP 142/57; TEMP 97.3; O2SAT 100
[2025-01-21 08:00] VITALS: BP 120/48; TEMP 97.2; O2SAT 99
[2025-01-21 12:00] VITALS: BP 133/59; TEMP 97.2; O2SAT 100
[2025-01-21 16:04] VITALS: BP 139/62; TEMP 97.2; O2SAT 99
[2025-01-21 19:31] VITALS: BP 166/70; TEMP 97.8; O2SAT 100
[2025-01-22 03:36] VITALS: BP 129/59; TEMP 97.5; O2SAT 98
[2025-01-23] MEDS ORDERED: SODIUM CHLORIDE 0.9% 1000 ML IV PRN (06:00)
[2025-01-23] MEDS ORDERED: HEPARIN 1,000 UNITS/ML 10 ML VIAL (FOR RADIOLOGY & DIALYSIS ONLY) XX SCH (06:00)
[2025-01-23] MEDS ORDERED: HEPARIN 1,000 UNITS/ML 10 ML VIAL (FOR RADIOLOGY & DIALYSIS ONLY) IV PRN (06:00)
[2025-01-23] MEDS ORDERED: LIDOCAINE 1% SDV 5 ML VIAL SC PRN (06:00)
[2025-01-23 06:50] VITALS: BP 158/62
[2025-01-23 06:52] VITALS: BP 158/62; TEMP 97.3; O2SAT 99
[2025-01-23] MEDS ORDERED: RAME8TAB2 PO (12:15)
[2025-01-23] MEDS ORDERED: HYDR50TA46 PO (12:15)
[2025-01-23] MEDS ORDERED: MIRA33506 PO (12:15)
[2025-01-23] MEDS ORDERED: QUET1TAB17 PO (12:15)
[2025-01-23] MEDS ORDERED: ACET32TAB PO (12:15)
[2025-01-23] MEDS ORDERED: AMLO1TAB25 PO (12:15)
[2025-01-23] MEDS ORDERED: CINA30TA5 PO (12:15)
== END 2025-01-23 13:09 | DRG 640 ==
LOC: M ED 13:14 → M ED INP 15:23 → M PCU 17:33 → M MSPAV 12-21 15:05 → M ICU 01-10 10:24 → M MSPAV 01-11 16:24
PROVIDERS: ADMIT Internal Medicine; ATTEND Internal Medicine Nephrology
PROC: 5A1D70Z Performance of Urinary Filtration, Intermittent, Less than 6 Hours Per Day (ICD-10-PCS; principal; 2024-12-20)
DX: E87.70 Fluid overload, unspecified (principal); N18.6 End stage renal disease; F03.918 Unspecified dementia, unspecified severity, with other behavioral disturbance; I12.0 Hypertensive chronic kidney disease with stage 5 chronic kidney disease or end stage renal disease; N25.81 Secondary hyperparathyroidism of renal origin; E11.22 Type 2 diabetes mellitus with diabetic chronic kidney disease; E11.40 Type 2 diabetes mellitus with diabetic neuropathy, unspecified; M06.9 Rheumatoid arthritis, unspecified; K21.9 Gastro-esophageal reflux disease without esophagitis; D63.1 Anemia in chronic kidney disease; E04.2 Nontoxic multinodular goiter; R26.89 Other abnormalities of gait and mobility; M81.0 Age-related osteoporosis without current pathological fracture; I16.0 Hypertensive urgency; E87.5 Hyperkalemia; K59.00 Constipation, unspecified; E83.39 Other disorders of phosphorus metabolism; Z66 Do not resuscitate; Z99.2 Dependence on renal dialysis; Z79.899 Other long term (current) drug therapy; Z91.118 Patient's noncompliance with dietary regimen for other reason; Z88.0 Allergy status to penicillin; Z88.1 Allergy status to other antibiotic agents

== ENCOUNTER → 2025-02-01 | Outpatient (REF) | payer MEDICARE ==
[~2025-02-01] MED LIST changes: +ACET32TAB PO; +CALC1CAP PO; +CALC667T2 PO; +CINA30TA5 PO; +HYDR50TA46 PO; +MIRA33506 PO; +QUET1TAB17 PO; +RAME8TAB2 PO
[2025-02-01 07:57] LABS: PLATELET COUNT, AUTOMATED 197 10^3/uL (150-450)
[2025-02-01 08:25] LABS: ALT/SGPT 15.0 U/L (7.0-40); AST/SGOT 21.0 U/L (<34); CALCIUM LEVEL 8.4 MG/DL (8.3-10.6); CARBON DIOXIDE LEVEL 30.0 MMOL/L (20-31); CHLORIDE LEVEL 95.0 MMOL/L (98-107); CHOLESTEROL LEVEL 211.0 MG/DL (<200); CHOLESTEROL RISK RATIO 3.14 (<5); CREATININE FOR GFR 5.38 MG/DL (0.55-1.30); GLOMERULAR FILTRATION RATE 7.6 (>32); LDL CHOLESTEROL 119.3 MG/DL (<100); NON-HDL-C 143.9 MG/DL; POTASSIUM SERUM 4.4 MMOL/L (3.5-5.1); SODIUM LEVEL 138.0 MMOL/L (136-145); TRIGLYCERIDES LEVEL 123.0 MG/DL (<150)
[2025-02-01 08:27] LABS: TOTAL 25(OH) VITAMIN D 19.0 NG/ML (20.0-100.0)
[2025-02-01 08:28] LABS: VITAMIN B12 LEVEL 779.0 PG/ML (211-911)
[2025-02-01 08:30] LABS: ESTIMATED AVERAGE GLUCOSE 100.0 MG/DL (60-110)
== END ==
LOC: SKLAB4 07:00
PROVIDERS: ATTEND Internal Medicine
DX: E55.9 Vitamin D deficiency, unspecified (principal); E11.21 Type 2 diabetes mellitus with diabetic nephropathy; Z79.899 Other long term (current) drug therapy

== ENCOUNTER → 2025-02-08 | Outpatient (REF) | payer MEDICARE ==
[2025-02-08 07:34] LABS: PLATELET COUNT, AUTOMATED 225 10^3/uL (150-450)
[2025-02-08 08:00] LABS: CALCIUM LEVEL 8.5 MG/DL (8.3-10.6); CARBON DIOXIDE LEVEL 33.0 MMOL/L (20-31); CHLORIDE LEVEL 92.0 MMOL/L (98-107); CREATININE FOR GFR 5.03 MG/DL (0.55-1.30); GLOMERULAR FILTRATION RATE 8.2 (>32); POTASSIUM SERUM 5.2 MMOL/L (3.5-5.1); SODIUM LEVEL 137.0 MMOL/L (136-145)
[2025-02-08 08:59] LABS: ESTIMATED AVERAGE GLUCOSE 103.0 MG/DL (60-110)
== END ==
LOC: SKLAB4 07:00
PROVIDERS: ATTEND Internal Medicine
DX: N18.6 End stage renal disease (principal); Z99.2 Dependence on renal dialysis; Z79.899 Other long term (current) drug therapy; E78.5 Hyperlipidemia, unspecified

== ENCOUNTER 2025-02-09 08:37 | Inpatient (IN) | payer MEDICARE ==
[~2025-02-09] VITALS: Ht 152.4 cm; Wt 46.2 kg
[2025-02-09] VITALS (11 sets, daily range): BP systolic 128–166; BP diastolic 61–72; TEMP 97.6–99.1; O2SAT 97–100
[~2025-02-09 08:37] MED LIST changes: -CALC667T2 PO
[2025-02-09] MEDS ORDERED: VANCOMYCIN HCL 1,000 MG, VIAL MATE ADAPTER 1 EACH in NS 250 ML IV SCH (09:20)
[2025-02-09 09:37] LABS: BASO # 0.1 10^3/uL (0.0-0.2); BASO % 0.4 % (0.0-1.0); EOS # 0.0 10^3/uL (0.0-0.5); EOS % 0.2 % (0.0-3.0); LYMPH # 0.5 10^3/uL (1.5-5.0); LYMPH % 4.3 % (24.0-44.0); MONO # 0.5 10^3/uL (0.0-0.8); MONO % 3.9 % (2.0-8.0); NEUTROPHILS # 11.4 10^3/uL (1.5-8.5); NEUTROPHILS % 90.7 % (36.0-66.0)
[2025-02-09 10:14] LABS: CALCIUM LEVEL 8.1 MG/DL (8.3-10.6); CARBON DIOXIDE LEVEL 29.0 MMOL/L (20-31); CHLORIDE LEVEL 86.0 MMOL/L (98-107); CREATININE FOR GFR 7.15 MG/DL (0.55-1.30); GLOMERULAR FILTRATION RATE 5.4 (>32); POTASSIUM SERUM 6.7 MMOL/L (3.5-5.1); SODIUM LEVEL 130.0 MMOL/L (136-145)
[2025-02-09] MEDS ORDERED: HEPARIN 1,000 UNITS/ML 10 ML VIAL (FOR RADIOLOGY & DIALYSIS ONLY) XX SCH (11:00)
[2025-02-09] MEDS ORDERED: HEPARIN 1,000 UNITS/ML 10 ML VIAL (FOR RADIOLOGY & DIALYSIS ONLY) IV PRN (11:00)
[2025-02-09] MEDS ORDERED: SODIUM CHLORIDE 0.9% 1000 ML IV PRN (11:00)
[2025-02-09] MEDS: SODIUM BICARBONATE 8.4% INJ 50ML SYRINGE IV ONE (11:07)
[2025-02-09] MEDS: DEXTROSE 50% 50 ML SYRINGE IV ONE (11:07)
[2025-02-09] MEDS: HumuLIN R (REGULAR) INSULIN (NovoLIN R) **100 U/ML** PER UNIT IV ONE (11:07)
[2025-02-09] MEDS: CALCIUM GLUCONATE 1,000 MG/10 ML VIAL IV ONE (11:07)
[2025-02-09] MEDS ORDERED: ceFAZolin SODIUM 2 GM in DEXTROSE 5% (D5W) ADV/MINI-BAG 50 ML IV ONE (11:25)
[2025-02-09] MEDS ORDERED: MAALOX 30 ML SUSP *UDC PO PRN (11:45)
[2025-02-09] MEDS ORDERED: MOM 30 ML SUSPENSION UDC PO PRN (11:45)
[2025-02-09 12:03] LABS: CALCIUM LEVEL 8.0 MG/DL (8.3-10.6); CARBON DIOXIDE LEVEL 31.0 MMOL/L (20-31); CHLORIDE LEVEL 87.0 MMOL/L (98-107); CREATININE FOR GFR 7.14 MG/DL (0.55-1.30); GLOMERULAR FILTRATION RATE 5.4 (>32); POTASSIUM SERUM 6.5 MMOL/L (3.5-5.1); SODIUM LEVEL 130.0 MMOL/L (136-145)
[2025-02-09] MEDS ORDERED: CALC667T2 PO (12:07)
[2025-02-09] MEDS ORDERED: QUET1TAB17 PO (12:07)
[2025-02-09] MEDS ORDERED: HYDR50TA46 PO (12:07)
[2025-02-09] MEDS ORDERED: HOME MED LIST COMPLETE! XX SCH (12:10)
[2025-02-09] MEDS: VANCOMYCIN HCL 1,000 MG, VIAL MATE ADAPTER 1 EACH in NS 250 ML IV ONE (12:11)
[2025-02-09] MEDS: HEPARIN 1,000 UNITS/ML 10 ML VIAL (FOR RADIOLOGY & DIALYSIS ONLY) IV PRN (12:12)
[2025-02-09] MEDS: NS (Normal Saline) 0.9% 1,000 ML IV SCH (12:13)
[2025-02-09] MEDS: MIDAZOLAM INJ 2 MG/2 ML VIAL IV PRN (12:14)
[2025-02-09] MEDS: LIDOCAINE 1% MDV 20 ML VIAL SC SCH (12:16)
[2025-02-09 13:21] LABS: INR 0.98
[2025-02-09] MEDS: PATIROMER SORBITEX CALCIUM 8.4GM POWDER PACKET PO ONE (15:22)
[2025-02-09] MEDS: MEROPENEM 1 GM in IV 1 EA IV SCH (21:32)
[2025-02-10] VITALS (12 sets, daily range): BP systolic 104–160; BP diastolic 51–70; TEMP 97.4–98; O2SAT 93–100
[2025-02-10 05:29] LABS: BASO # 0.0 10^3/uL (0.0-0.2); BASO % 0.4 % (0.0-1.0); EOS # 0.0 10^3/uL (0.0-0.5); EOS % 0.5 % (0.0-3.0); LYMPH # 0.9 10^3/uL (1.5-5.0); LYMPH % 11.1 % (24.0-44.0); MONO # 0.9 10^3/uL (0.0-0.8); MONO % 11.3 % (2.0-8.0); NEUTROPHILS # 5.9 10^3/uL (1.5-8.5); NEUTROPHILS % 76.1 % (36.0-66.0); PLATELET COUNT, AUTOMATED 171 10^3/uL (150-450)
[2025-02-10 05:56] LABS: ALT/SGPT 20.0 U/L (7.0-40); AST/SGOT 28.0 U/L (<34); CALCIUM LEVEL 7.9 MG/DL (8.3-10.6); CARBON DIOXIDE LEVEL 25.0 MMOL/L (20-31); CHLORIDE LEVEL 100.0 MMOL/L (98-107); CREATININE FOR GFR 4.12 MG/DL (0.55-1.30); GLOMERULAR FILTRATION RATE 10.4 (>32); MAGNESIUM LEVEL 2.0 MG/DL (1.8-2.4); PHOSPHORUS LEVEL 4.9 MG/DL (2.4-5.1); POTASSIUM SERUM 4.7 MMOL/L (3.5-5.1); SODIUM LEVEL 136.0 MMOL/L (136-145)
[2025-02-10] MEDS: HEPARIN SOD 5000 UNITS/ML 1 ML VIAL/SYRINGE SC SCH (08:29)
[2025-02-10] MEDS: VANCOMYCIN HCL 500 MG in DEXTROSE 5% (D5W) MINI-BAG PLU 100 ML IV ONE (13:51)
[2025-02-10] MEDS: amLODIPine 10 MG TAB PO SCH (13:51)
[2025-02-11] VITALS (10 sets, daily range): BP systolic 131–193; BP diastolic 63–108; TEMP 97.5–98.2; O2SAT 98–100
[2025-02-11] MEDS ORDERED: SODIUM CHLORIDE 0.9% 1000 ML IV PRN (06:00)
[2025-02-11] MEDS ORDERED: HEPARIN 1,000 UNITS/ML 10 ML VIAL (FOR RADIOLOGY & DIALYSIS ONLY) IV PRN (06:00)
[2025-02-11 06:01] LABS: VANCOMYCIN RANDOM 19.7 UG/ML
[2025-02-11 07:57] LABS: BASO # 0.0 10^3/uL (0.0-0.2); BASO % 0.5 % (0.0-1.0); EOS # 0.1 10^3/uL (0.0-0.5); EOS % 0.9 % (0.0-3.0); LYMPH # 1.3 10^3/uL (1.5-5.0); LYMPH % 15.6 % (24.0-44.0); MONO # 1.0 10^3/uL (0.0-0.8); MONO % 11.6 % (2.0-8.0); NEUTROPHILS # 6.0 10^3/uL (1.5-8.5); NEUTROPHILS % 70.5 % (36.0-66.0); PLATELET COUNT, AUTOMATED 192 10^3/uL (150-450)
[2025-02-11 08:07] LABS: CARBON DIOXIDE LEVEL 24.0 MMOL/L (20-31); CHLORIDE LEVEL 97.0 MMOL/L (98-107); CREATININE FOR GFR 5.97 MG/DL (0.55-1.30); GLOMERULAR FILTRATION RATE 6.7 (>32); MAGNESIUM LEVEL 2.0 MG/DL (1.8-2.4); POTASSIUM SERUM 4.7 MMOL/L (3.5-5.1); SODIUM LEVEL 131.0 MMOL/L (136-145)
[2025-02-11 08:24] LABS: CALCIUM LEVEL 8.2 MG/DL (8.3-10.6)
[2025-02-11] MEDS: SEVELAMER *CARBONate* 800 MG TAB PO SCH (12:52)
[2025-02-11] MEDS: HEPARIN 1,000 UNITS/ML 10 ML VIAL (FOR RADIOLOGY & DIALYSIS ONLY) XX SCH (14:10)
[2025-02-11] MEDS: VANCOMYCIN HCL 500 MG in DEXTROSE 5% (D5W) MINI-BAG PLU 100 ML IV SCH (18:09)
[2025-02-12 03:30] VITALS: BP 156/74; TEMP 97.5; O2SAT 100
[2025-02-12 08:56] LABS: CALCIUM LEVEL 8.5 MG/DL (8.3-10.6); CARBON DIOXIDE LEVEL 26.0 MMOL/L (20-31); CHLORIDE LEVEL 94.0 MMOL/L (98-107); CREATININE FOR GFR 4.58 MG/DL (0.55-1.30); GLOMERULAR FILTRATION RATE 9.2 (>32); MAGNESIUM LEVEL 2.0 MG/DL (1.8-2.4); POTASSIUM SERUM 4.6 MMOL/L (3.5-5.1); SODIUM LEVEL 134.0 MMOL/L (136-145)
[2025-02-12 12:00] VITALS: BP 103/51; TEMP 98.4; O2SAT 100
[2025-02-12] MEDS: ACETAMINOPHEN 325 MG TAB PO PRN (16:27)
[2025-02-12 20:00] VITALS: BP 108/54; TEMP 98.1; O2SAT 100
[2025-02-13 05:59] VITALS: BP 149/60; TEMP 97.9; O2SAT 99
[2025-02-13 07:01] LABS: CALCIUM LEVEL 7.8 MG/DL (8.3-10.6); CARBON DIOXIDE LEVEL 25.0 MMOL/L (20-31); CHLORIDE LEVEL 94.0 MMOL/L (98-107); CREATININE FOR GFR 6.42 MG/DL (0.55-1.30); GLOMERULAR FILTRATION RATE 6.1 (>32); MAGNESIUM LEVEL 2.1 MG/DL (1.8-2.4); POTASSIUM SERUM 5.3 MMOL/L (3.5-5.1); SODIUM LEVEL 131.0 MMOL/L (136-145)
[2025-02-13 12:00] VITALS: BP 124/72; TEMP 97.3; O2SAT 96
[2025-02-13 21:00] VITALS: BP 132/64; TEMP 97.5; O2SAT 98
[2025-02-13] MEDS: LINEZOLID 600 MG TABLET PO SCH (21:05)
[2025-02-14 06:00] VITALS: BP 129/69; TEMP 98.2; O2SAT 99
[2025-02-14] MEDS ORDERED: SODIUM CHLORIDE 0.9% 1000 ML IV PRN (06:00)
[2025-02-14] MEDS ORDERED: HEPARIN 1,000 UNITS/ML 10 ML VIAL (FOR RADIOLOGY & DIALYSIS ONLY) IV PRN (06:00)
[2025-02-14] MEDS ORDERED: LIDOCAINE 1% SDV 5 ML VIAL SC PRN (06:00)
[2025-02-14 07:11] LABS: CALCIUM LEVEL 7.9 MG/DL (8.3-10.6); CARBON DIOXIDE LEVEL 22.0 MMOL/L (20-31); CHLORIDE LEVEL 90.0 MMOL/L (98-107); CREATININE FOR GFR 7.77 MG/DL (0.55-1.30); GLOMERULAR FILTRATION RATE 4.9 (>32); MAGNESIUM LEVEL 2.2 MG/DL (1.8-2.4); POTASSIUM SERUM 6.1 MMOL/L (3.5-5.1); SODIUM LEVEL 125.0 MMOL/L (136-145)
[2025-02-14] MEDS: HEPARIN 1,000 UNITS/ML 10 ML VIAL (FOR RADIOLOGY & DIALYSIS ONLY) XX SCH (11:46)
[2025-02-14 13:01] VITALS: BP 157/61; TEMP 97; O2SAT 95
[2025-02-14] MEDS: NS 250 ML IV SCH (13:35)
[2025-02-14] MEDS: MIDAZOLAM INJ 2 MG/2 ML VIAL IV PRN (14:32)
[2025-02-14] MEDS: HEPARIN 1,000 UNITS/ML 10 ML VIAL (FOR RADIOLOGY & DIALYSIS ONLY) IV PRN (14:40)
[2025-02-14] MEDS: LIDOCAINE 1% MDV 20 ML VIAL SC SCH (15:08)
[2025-02-14] MEDS: ISOVUE-300 61% 100 ML VIAL IV SCH (15:08)
[2025-02-14] MEDS: VANCOMYCIN HCL 500 MG in DEXTROSE 5% (D5W) MINI-BAG PLU 100 ML IV SCH (16:32)
[2025-02-14 20:24] VITALS: BP 125/50; TEMP 97.5; O2SAT 99
[2025-02-15 05:44] LABS: C REACTIVE PROTEIN QUANTITATIV 1.81 MG/DL (<1.0)
[2025-02-15 05:53] LABS: VANCOMYCIN RANDOM 18.0 UG/ML
[2025-02-15 05:56] VITALS: BP 130/51; TEMP 97.2; O2SAT 96
[2025-02-15 07:53] LABS: CALCIUM LEVEL 8.3 MG/DL (8.3-10.6); CARBON DIOXIDE LEVEL 24.0 MMOL/L (20-31); CHLORIDE LEVEL 97.0 MMOL/L (98-107); CREATININE FOR GFR 4.85 MG/DL (0.55-1.30); GLOMERULAR FILTRATION RATE 8.6 (>32); MAGNESIUM LEVEL 2.0 MG/DL (1.8-2.4); POTASSIUM SERUM 5.7 MMOL/L (3.5-5.1); SODIUM LEVEL 131.0 MMOL/L (136-145)
[2025-02-15 09:34] LABS: PLATELET COUNT, AUTOMATED 200 10^3/uL (150-450)
[2025-02-15 12:49] VITALS: BP 111/44; TEMP 97.9; O2SAT 91
[2025-02-15 20:38] VITALS: BP 163/68; TEMP 97.9; O2SAT 99
[2025-02-16 04:00] VITALS: BP 169/52; TEMP 97; O2SAT 94
[2025-02-16] MEDS ORDERED: HEPARIN 1,000 UNITS/ML 10 ML VIAL (FOR RADIOLOGY & DIALYSIS ONLY) IV PRN (06:00)
[2025-02-16] MEDS ORDERED: SODIUM CHLORIDE 0.9% 1000 ML IV PRN (06:00)
[2025-02-16] MEDS ORDERED: LIDOCAINE 1% SDV 5 ML VIAL SC PRN (06:00)
[2025-02-16] MEDS: HEPARIN 1,000 UNITS/ML 10 ML VIAL (FOR RADIOLOGY & DIALYSIS ONLY) XX SCH (11:18)
[2025-02-16] MEDS: DARBEPOETIN 100 MCG/0.5 ML *DIALYSIS* SYRINGE IV SCH (11:41)
[2025-02-16 12:45] VITALS: BP 156/55; TEMP 97.5; O2SAT 100
[2025-02-17 08:10] VITALS: BP 145/59
[2025-02-17 09:35] LABS: PLATELET COUNT, AUTOMATED 178 10^3/uL (150-450)
[2025-02-17] MEDS ORDERED: CEPH500C PO (10:08)
[2025-02-17 10:18] LABS: CALCIUM LEVEL 8.8 MG/DL (8.3-10.6); CARBON DIOXIDE LEVEL 22.0 MMOL/L (20-31); CHLORIDE LEVEL 96.0 MMOL/L (98-107); CREATININE FOR GFR 4.85 MG/DL (0.55-1.30); GLOMERULAR FILTRATION RATE 8.6 (>32); MAGNESIUM LEVEL 2.0 MG/DL (1.8-2.4); POTASSIUM SERUM 5.4 MMOL/L (3.5-5.1); SODIUM LEVEL 131.0 MMOL/L (136-145); VANCOMYCIN RANDOM 20.8 UG/ML
== END 2025-02-17 11:57 | DRG 252 ==
LOC: EDBD 08:37 → M ED 10:29 → M ED INP 11:45 → M ICU 13:12 → M MSPAV 02-11 22:25
PROVIDERS: ADMIT Student in an Organized Health Care Education/Training Program; ATTEND Internal Medicine
PROC: 0JH63XZ Insertion of Tunneled Vascular Access Device into Chest Subcutaneous Tissue and Fascia, Percutaneous Approach (ICD-10-PCS; 2025-02-09)
PROC: 02H633Z Insertion of Infusion Device into Right Atrium, Percutaneous Approach (ICD-10-PCS; 2025-02-09)
PROC: 057B3ZZ Dilation of Right Basilic Vein, Percutaneous Approach (ICD-10-PCS; principal; 2025-02-14 14:30)
PROC: 5A1D70Z Performance of Urinary Filtration, Intermittent, Less than 6 Hours Per Day (ICD-10-PCS; 2025-02-16)
DX: T82.7XXA Infection and inflammatory reaction due to other cardiac and vascular devices, implants and grafts, initial encounter (principal); N18.6 End stage renal disease; I12.0 Hypertensive chronic kidney disease with stage 5 chronic kidney disease or end stage renal disease; L03.113 Cellulitis of right upper limb; E87.1 Hypo-osmolality and hyponatremia; F05 Delirium due to known physiological condition; Y83.1 Surgical operation with implant of artificial internal device as the cause of abnormal reaction of the patient, or of later complication, without mention of misadventure at the time of the procedure; E11.22 Type 2 diabetes mellitus with diabetic chronic kidney disease; E11.40 Type 2 diabetes mellitus with diabetic neuropathy, unspecified; T82.858A Stenosis of other vascular prosthetic devices, implants and grafts, initial encounter; M06.9 Rheumatoid arthritis, unspecified; T82.838A Hemorrhage due to vascular prosthetic devices, implants and grafts, initial encounter; K21.9 Gastro-esophageal reflux disease without esophagitis; M81.0 Age-related osteoporosis without current pathological fracture; D64.9 Anemia, unspecified; B95.61 Methicillin susceptible Staphylococcus aureus infection as the cause of diseases classified elsewhere; F03.90 Unspecified dementia, unspecified severity, without behavioral disturbance, psychotic disturbance, mood disturbance, and anxiety; E87.5 Hyperkalemia; Z66 Do not resuscitate; Z99.2 Dependence on renal dialysis; Z79.899 Other long term (current) drug therapy; Z88.0 Allergy status to penicillin; Z88.1 Allergy status to other antibiotic agents

== ENCOUNTER → 2025-03-20 | Outpatient (REF) | payer MEDICARE, MEDICAID ==
[~2025-03-20] MED LIST changes: +CALC667T2 PO; +CEPH500C PO
[2025-03-20 09:39] LABS: CALCIUM LEVEL 8.5 MG/DL (8.3-10.6); CARBON DIOXIDE LEVEL 24.0 MMOL/L (20-31); CHLORIDE LEVEL 91.0 MMOL/L (98-107); CREATININE FOR GFR 6.69 MG/DL (0.55-1.30); GLOMERULAR FILTRATION RATE 5.8 (>32); POTASSIUM SERUM 5.4 MMOL/L (3.5-5.1); SODIUM LEVEL 134.0 MMOL/L (136-145)
== END ==
LOC: SKLAB4 06:41
PROVIDERS: ATTEND Internal Medicine
DX: E87.5 Hyperkalemia (principal)

== ENCOUNTER → 2025-03-24 | Outpatient (REF) | payer MEDICARE, MEDICAID ==
[2025-03-24 08:17] LABS: CALCIUM LEVEL 8.1 MG/DL (8.3-10.6); CARBON DIOXIDE LEVEL 29.0 MMOL/L (20-31); CHLORIDE LEVEL 93.0 MMOL/L (98-107); CREATININE FOR GFR 4.77 MG/DL (0.55-1.30); GLOMERULAR FILTRATION RATE 8.7 (>32); POTASSIUM SERUM 5.4 MMOL/L (3.5-5.1); SODIUM LEVEL 135.0 MMOL/L (136-145)
== END ==
LOC: SKLAB4 07:00
PROVIDERS: ATTEND Internal Medicine
DX: E87.5 Hyperkalemia (principal)

== ENCOUNTER → 2025-04-26 | Outpatient (REF) | payer MEDICARE, MEDICAID ==
[~2025-04-26] MED LIST changes: -BACTDSTA PO; +SULF-8 PO
[2025-04-26 16:46] LABS: PLATELET COUNT, AUTOMATED 220 10^3/uL (150-450)
== END ==
LOC: SKLAB4 16:10
PROVIDERS: ATTEND Family Medicine
DX: R58 Hemorrhage, not elsewhere classified (principal)

== ENCOUNTER 2025-05-02 22:38 | Inpatient (IN) | payer MEDICARE, MEDICAID ==
[~2025-05-02 22:38] MED LIST changes: -ACET1TAB55 PO; -BISA10SU PR; -BUSP5TA PO; -CINA30TA4 PO; -DIVA1TAB48 PO; -ERGO125013 PO; -FLEEENE12 PR; -ONDA-83 PO; -ROZE8TAB16 PO; -SENN-186 PO
[2025-05-03 01:25] LABS: BASO # 0.1 10^3/uL (0.0-0.2); BASO % 0.5 % (0.0-1.0); EOS # 0.1 10^3/uL (0.0-0.5); EOS % 0.9 % (0.0-3.0); LYMPH # 2.8 10^3/uL (1.5-5.0); LYMPH % 26.0 % (24.0-44.0); MONO # 1.0 10^3/uL (0.0-0.8); MONO % 9.3 % (2.0-8.0); NEUTROPHILS # 6.6 10^3/uL (1.5-8.5); NEUTROPHILS % 62.3 % (36.0-66.0); PLATELET COUNT, AUTOMATED 223 10^3/uL (150-450)
[2025-05-03] MEDS: NS (Normal Saline) 0.9% 1,000 ML IV ONE (01:37)
[2025-05-03 01:48] LABS: CPK CREATINE PHOSPHOKINASE 63 U/L (34-145)
[2025-05-03 02:11] LABS: ALT/SGPT 15 U/L (7.0-40); AST/SGOT 18 U/L (<34); CALCIUM LEVEL 8.3 MG/DL (8.3-10.6); CARBON DIOXIDE LEVEL 22 MMOL/L (20-31); CHLORIDE LEVEL 85 MMOL/L (98-107); CK-MB VALUE MASS 1.6 NG/ML (<3.6); CREATININE FOR GFR 8.85 MG/DL (0.55-1.30); GLOMERULAR FILTRATION RATE 4.2 (>32); MB/CK RELATIVE INDEX 2.53 (< OR =4); POTASSIUM SERUM 6.1 MMOL/L (3.5-5.1); SODIUM LEVEL 127 MMOL/L (136-145)
[2025-05-03] MEDS ORDERED: ISOVUE-370 76% 100 ML VIAL As Ordered ONE (02:14)
[2025-05-03] MEDS: PATIROMER SORBITEX CALCIUM 8.4GM POWDER PACKET PO ONE (02:46)
[2025-05-03] MEDS: DEXTROSE 50% 50 ML SYRINGE IV ONE (03:13)
[2025-05-03] MEDS: HumuLIN R (REGULAR) INSULIN (NovoLIN R) **100 U/ML** PER UNIT IV ONE (03:14)
[2025-05-03 04:14] LABS: VENOUS BASE EXCESS -2.6 (-2.0-2.0); VENOUS HCO3 21.3 MMOL/L (23.0-27.0); VENOUS O2 SATURATION 68.1 % (60.0-80.0); VENOUS PARTIAL PRESSURE CO2 33.7 mmHg (38.0-50.0); VENOUS PARTIAL PRESSURE O2 38.4 mmHg (30.0-50.0); VENOUS PH 7.419 UNITS (7.330-7.430); VENOUS STANDARD HCO3 21.8 MMOL/L; VENOUS TOTAL CO2 22.4 MMOL/L (24.0-28.0)
[2025-05-03 04:43] LABS: CK-MB VALUE MASS 1.2 NG/ML (<3.6)
[2025-05-03 04:44] LABS: CPK CREATINE PHOSPHOKINASE 55.0 U/L (34-145); MB/CK RELATIVE INDEX 2.18 (< OR =4)
[2025-05-03] MEDS ORDERED: CALCIUM GLUCONATE 1,000 MG/10 ML VIAL IV ONE (08:30)
[2025-05-03] MEDS ORDERED: CINA30TA4 PO (09:50)
[2025-05-03] MEDS ORDERED: ERGO125013 PO (09:50)
[2025-05-03] MEDS ORDERED: BUSP5TA PO (09:50)
[2025-05-03] MEDS ORDERED: ONDA-83 PO (09:50)
[2025-05-03] MEDS ORDERED: DIVA1TAB48 PO (09:50)
[2025-05-03] MEDS ORDERED: HOME MED LIST COMPLETE! XX SCH (09:50)
[2025-05-03] MEDS ORDERED: ACET1TAB55 PO (09:50)
[2025-05-03] MEDS ORDERED: ROZE8TAB16 PO (09:50)
[2025-05-03] MEDS ORDERED: BISA10SU PR (09:50)
[2025-05-03] MEDS ORDERED: FLEEENE12 PR (09:50)
[2025-05-03] MEDS ORDERED: SENN-186 PO (09:50)
[2025-05-03] MEDS ORDERED: LIDOCAINE 1% SDV 5 ML VIAL SC PRN (10:00)
[2025-05-03] MEDS ORDERED: SODIUM CHLORIDE 0.9% 1000 ML IV PRN (10:00)
[2025-05-03] MEDS ORDERED: HEPARIN 1,000 UNITS/ML 10 ML VIAL (FOR RADIOLOGY & DIALYSIS ONLY) IV PRN (10:00)
[2025-05-03] MEDS: CALCIUM GLUCONATE 1,000 MG in DEXTROSE 5% (D5W) MINI-BAG PLU 100 ML IV ONE (10:34)
[2025-05-03] MEDS ORDERED: GLUCOSE 4 GM CHEW PO PRN (12:40)
[2025-05-03] MEDS ORDERED: GLUCAGON INJ 1 MG VIAL SC PRN (12:40)
[2025-05-03] MEDS ORDERED: DEXTROSE 50% 50 ML SYRINGE IV PRN (12:40)
[2025-05-03] MEDS: HEPARIN 1,000 UNITS/ML 10 ML VIAL (FOR RADIOLOGY & DIALYSIS ONLY) XX SCH (13:37)
[2025-05-03 16:22] VITALS: BP 159/71; TEMP 97.1; O2SAT 100
[2025-05-03] MEDS: **hydrALAZINE** 50 MG TAB PO SCH (16:42)
[2025-05-03] MEDS: CALCIUM ACETATE 667 MG GELCAP PO SCH (16:43)
[2025-05-03] MEDS: amLODIPine 10 MG TAB PO SCH (16:43)
[2025-05-03 20:30] VITALS: BP 123/61; TEMP 97; O2SAT 98
[2025-05-03] MEDS: DIVALPROEX 125 MG TAB PO SCH (21:33)
[2025-05-03] MEDS: SENNA 8.6 MG TAB PO SCH (21:33)
[2025-05-03] MEDS: HEPARIN SOD 5000 UNITS/ML 1 ML VIAL/SYRINGE SQ SCH (21:36)
[2025-05-04] VITALS (7 sets, daily range): BP systolic 113–143; BP diastolic 54–89; TEMP 97–98.1; O2SAT 98–100
[2025-05-04 05:47] LABS: PLATELET COUNT, AUTOMATED 220 10^3/uL (150-450)
[2025-05-04] MEDS ORDERED: HEPARIN 1,000 UNITS/ML 10 ML VIAL (FOR RADIOLOGY & DIALYSIS ONLY) IV PRN (06:00)
[2025-05-04] MEDS ORDERED: SODIUM CHLORIDE 0.9% 1000 ML IV PRN (06:00)
[2025-05-04] MEDS ORDERED: HEPARIN 1,000 UNITS/ML 10 ML VIAL (FOR RADIOLOGY & DIALYSIS ONLY) XX SCH (06:00)
[2025-05-04] MEDS ORDERED: LIDOCAINE 1% SDV 5 ML VIAL SC PRN (06:00)
[2025-05-04 06:13] LABS: CALCIUM LEVEL 8.4 MG/DL (8.3-10.6); CARBON DIOXIDE LEVEL 28.0 MMOL/L (20-31); CHLORIDE LEVEL 92.0 MMOL/L (98-107); CREATININE FOR GFR 5.42 MG/DL (0.55-1.30); GLOMERULAR FILTRATION RATE 7.5 (>32); POTASSIUM SERUM 4.9 MMOL/L (3.5-5.1); SODIUM LEVEL 132.0 MMOL/L (136-145)
[2025-05-04] MEDS: busPIRone 5 MG TAB PO SCH (08:14)
[2025-05-04] MEDS: CINACALCET 30 MG TAB PO SCH (08:14)
[2025-05-04] MEDS ORDERED: LOPERAMIDE 2 MG CAPLET PO PRN (12:30)
[2025-05-04] MEDS: RAMELTEON 8 MG TAB PO PRN (20:10)
[2025-05-05 04:41] VITALS: BP 128/59; TEMP 97.3; O2SAT 99
[2025-05-05 06:16] LABS: CALCIUM LEVEL 8.3 MG/DL (8.3-10.6); CARBON DIOXIDE LEVEL 29.0 MMOL/L (20-31); CHLORIDE LEVEL 92.0 MMOL/L (98-107); CREATININE FOR GFR 3.79 MG/DL (0.55-1.30); GLOMERULAR FILTRATION RATE 11.5 (>32); POTASSIUM SERUM 4.4 MMOL/L (3.5-5.1); SODIUM LEVEL 133.0 MMOL/L (136-145)
[2025-05-05 08:10] VITALS: BP 110/62; TEMP 97.5; O2SAT 99
[2025-05-05 09:16] VITALS: BP 110/61
[2025-05-05] MEDS: ACETAMINOPHEN 325 MG TAB PO PRN (09:27)
== END 2025-05-05 11:48 | DRG 640 ==
LOC: EDBD 22:38 → M ED 22:38 → M ED INP 05-03 08:29 → M PCU 05-03 16:22
PROVIDERS: ADMIT Internal Medicine; ATTEND Internal Medicine
PROC: 5A1D70Z Performance of Urinary Filtration, Intermittent, Less than 6 Hours Per Day (ICD-10-PCS; principal; 2025-05-04)
DX: E87.5 Hyperkalemia (principal); N18.6 End stage renal disease; I12.0 Hypertensive chronic kidney disease with stage 5 chronic kidney disease or end stage renal disease; M48.56XA Collapsed vertebra, not elsewhere classified, lumbar region, initial encounter for fracture; F03.90 Unspecified dementia, unspecified severity, without behavioral disturbance, psychotic disturbance, mood disturbance, and anxiety; D63.1 Anemia in chronic kidney disease; E87.20 Acidosis, unspecified; R10.9 Unspecified abdominal pain; R19.7 Diarrhea, unspecified; N25.0 Renal osteodystrophy; K21.9 Gastro-esophageal reflux disease without esophagitis; E11.22 Type 2 diabetes mellitus with diabetic chronic kidney disease; M06.9 Rheumatoid arthritis, unspecified; M81.0 Age-related osteoporosis without current pathological fracture; E11.40 Type 2 diabetes mellitus with diabetic neuropathy, unspecified; E87.1 Hypo-osmolality and hyponatremia; Z66 Do not resuscitate; Z99.2 Dependence on renal dialysis; Z88.1 Allergy status to other antibiotic agents; Z79.899 Other long term (current) drug therapy

== ENCOUNTER → 2025-05-02 | Outpatient (REF) | payer MEDICARE, MEDICAID ==
[~2025-05-02] MED LIST changes: +ACET1TAB55 PO; +BISA10SU PR; +BUSP5TA PO; +CINA30TA4 PO; +DIVA1TAB48 PO; +ERGO125013 PO; +FLEEENE12 PR; +ONDA-83 PO; +ROZE8TAB16 PO; +SENN-186 PO
[2025-05-02 19:15] LABS: PLATELET COUNT, AUTOMATED 211 10^3/uL (150-450)
[2025-05-02 19:58] LABS: CALCIUM LEVEL 7.4 MG/DL (8.3-10.6); CARBON DIOXIDE LEVEL 25.0 MMOL/L (20-31); CHLORIDE LEVEL 86.0 MMOL/L (98-107); CREATININE FOR GFR 8.45 MG/DL (0.55-1.30); GLOMERULAR FILTRATION RATE 4.4 (>32); POTASSIUM SERUM 6.1 MMOL/L (3.5-5.1); SODIUM LEVEL 129.0 MMOL/L (136-145)
== END ==
LOC: SKLAB4 17:17
PROVIDERS: ATTEND Internal Medicine
DX: R53.81 Other malaise (principal)

== ENCOUNTER → 2025-05-11 | Outpatient (REF) | payer MEDICARE, MEDICAID ==
[~2025-05-11] MED LIST changes: +ACET1TAB55 PO; +BISA10SU PR; +BUSP5TA PO; +CINA30TA4 PO; +DIVA1TAB48 PO; +ERGO125013 PO; +FLEEENE12 PR; +ONDA-83 PO; +ROZE8TAB16 PO; +SENN-186 PO
[2025-05-11 10:09] LABS: PLATELET COUNT, AUTOMATED 221 10^3/uL (150-450)
[2025-05-11 10:31] LABS: CALCIUM LEVEL 7.8 MG/DL (8.3-10.6); CARBON DIOXIDE LEVEL 27.0 MMOL/L (20-31); CHLORIDE LEVEL 91.0 MMOL/L (98-107); CREATININE FOR GFR 6.74 MG/DL (0.55-1.30); GLOMERULAR FILTRATION RATE 5.8 (>32); POTASSIUM SERUM 5.1 MMOL/L (3.5-5.1); SODIUM LEVEL 133.0 MMOL/L (136-145)
== END ==
LOC: SKLAB4 07:00
PROVIDERS: ATTEND Internal Medicine
DX: N18.9 Chronic kidney disease, unspecified (principal); D63.1 Anemia in chronic kidney disease

== ENCOUNTER 2025-05-24 14:48 | Observation (INO) | payer MEDICARE, MEDICAID ==
[~2025-05-24] VITALS: Ht 157.5 cm; Wt 48.2 kg
[~2025-05-24 14:48] MED LIST changes: +CALCIUM ACETATE 667 MG GELCAP PO SCH
[2025-05-24 15:26] LABS: BASO # 0.1 10^3/uL (0.0-0.2); BASO % 0.8 % (0.0-1.0); EOS # 0.1 10^3/uL (0.0-0.5); EOS % 1.8 % (0.0-3.0); LYMPH # 1.5 10^3/uL (1.5-5.0); LYMPH % 22.7 % (24.0-44.0); MONO # 0.6 10^3/uL (0.0-0.8); MONO % 8.9 % (2.0-8.0); NEUTROPHILS # 4.2 10^3/uL (1.5-8.5); NEUTROPHILS % 63.1 % (36.0-66.0); PLATELET COUNT, AUTOMATED 225 10^3/uL (150-450)
[2025-05-24 15:52] LABS: CALCIUM LEVEL 8.3 MG/DL (8.3-10.6); CARBON DIOXIDE LEVEL 33.0 MMOL/L (20-31); CHLORIDE LEVEL 94.0 MMOL/L (98-107); CREATININE FOR GFR 2.53 MG/DL (0.55-1.30); GLOMERULAR FILTRATION RATE 18.7 (>32); POTASSIUM SERUM 3.7 MMOL/L (3.5-5.1); SODIUM LEVEL 136.0 MMOL/L (136-145)
[2025-05-24] MEDS ORDERED: MOM 30 ML SUSPENSION UDC PO PRN (18:10)
[2025-05-24] MEDS ORDERED: BISA10EN PR (19:11)
[2025-05-24] MEDS ORDERED: HYDR25TA87 PO (19:11)
[2025-05-24] MEDS ORDERED: MECL-86 PO (19:11)
[2025-05-24] MEDS ORDERED: HOME MED LIST COMPLETE! XX SCH (19:15)
[2025-05-24 20:58] VITALS: BP 155/67; TEMP 98.4; O2SAT 96
[2025-05-24] MEDS: traZODone 50 MG TAB PO PRN (22:54)
[2025-05-24] MEDS: **hydrALAZINE HCL** 25 MG TAB PO SCH (22:54)
[2025-05-24] MEDS: DIVALPROEX 125 MG TAB PO SCH (23:07)
[2025-05-25] VITALS: BP 142/66; TEMP 98.1; O2SAT 95
[2025-05-25 04:55] VITALS: BP 144/69; TEMP 98.4; O2SAT 96
[2025-05-25 07:03] LABS: PLATELET COUNT, AUTOMATED 211 10^3/uL (150-450)
[2025-05-25 07:52] LABS: ALT/SGPT 23.0 U/L (7.0-40); AST/SGOT 26.0 U/L (<34); CALCIUM LEVEL 8.1 MG/DL (8.3-10.6); CARBON DIOXIDE LEVEL 34.0 MMOL/L (20-31); CHLORIDE LEVEL 93.0 MMOL/L (98-107); CREATININE FOR GFR 4.29 MG/DL (0.55-1.30); GLOMERULAR FILTRATION RATE 9.9 (>32); MAGNESIUM LEVEL 2.1 MG/DL (1.8-2.4); POTASSIUM SERUM 5.0 MMOL/L (3.5-5.1); SODIUM LEVEL 134.0 MMOL/L (136-145)
[2025-05-25] MEDS: CALCIUM ACETATE 667 MG GELCAP PO SCH (08:04)
[2025-05-25] MEDS: MIDODRINE 5 MG TAB PO SCH (08:56)
[2025-05-25] MEDS ORDERED: amLODIPine 10 MG TAB PO SCH (09:00)
[2025-05-25 12:00] VITALS: BP 122/57; TEMP 98.3; O2SAT 99
[2025-05-25] MEDS: ACETAMINOPHEN 325 MG TAB PO PRN (15:58)
[2025-05-25 16:00] VITALS: BP 102/56; TEMP 98.5; O2SAT 100
[2025-05-25 22:14] VITALS: BP 145/66; TEMP 97.9; O2SAT 99
[2025-05-25] MEDS: **hydrALAZINE HCL** 25 MG TAB PO SCH (22:35)
[2025-05-25] MEDS: HEPARIN SOD 5000 UNITS/ML 1 ML VIAL/SYRINGE SQ SCH (22:39)
[2025-05-26] MEDS: METHYLPHENIDATE 5 MG TAB PO ONE (02:33)
[2025-05-26 03:40] VITALS: BP 147/65; TEMP 97.7; O2SAT 98
[2025-05-26 07:52] VITALS: BP 118/57; TEMP 98; O2SAT 100
[2025-05-26] MEDS: MIDODRINE 5 MG TAB PO SCH (08:28)
[2025-05-26 11:37] VITALS: BP 138/64
[2025-05-26 12:00] VITALS: BP 128/72; TEMP 98; O2SAT 100
[2025-05-26] MEDS ORDERED: HYDR25TA87 PO (12:25)
[2025-05-26] MEDS ORDERED: MIDO5TA PO (12:25)
== END 2025-05-26 13:05 ==
LOC: EDBD 14:48 → M ED 14:48 → M ED INP 14:49 → M MSPAV 20:49
PROVIDERS: ADMIT Internal Medicine; ATTEND Student in an Organized Health Care Education/Training Program
DX: R55 Syncope and collapse (principal); N18.6 End stage renal disease; Z99.2 Dependence on renal dialysis; E11.40 Type 2 diabetes mellitus with diabetic neuropathy, unspecified; F03.90 Unspecified dementia, unspecified severity, without behavioral disturbance, psychotic disturbance, mood disturbance, and anxiety; T82.838A Hemorrhage due to vascular prosthetic devices, implants and grafts, initial encounter; Y73.2 Prosthetic and other implants, materials and accessory gastroenterology and urology devices associated with adverse incidents; I12.0 Hypertensive chronic kidney disease with stage 5 chronic kidney disease or end stage renal disease; M06.9 Rheumatoid arthritis, unspecified; K21.9 Gastro-esophageal reflux disease without esophagitis; M81.0 Age-related osteoporosis without current pathological fracture; N25.0 Renal osteodystrophy; D64.9 Anemia, unspecified; M54.9 Dorsalgia, unspecified; E04.1 Nontoxic single thyroid nodule; M26.629 Arthralgia of temporomandibular joint, unspecified side; Z90.89 Acquired absence of other organs; Z98.890 Other specified postprocedural states; Z79.899 Other long term (current) drug therapy; Z88.0 Allergy status to penicillin; Z88.1 Allergy status to other antibiotic agents; Z66 Do not resuscitate
CPT/HCPCS: 36415; 70450; 71045; 80048; 80053; 83735; 84443; 84484; 85025; 85027; 86850; 86900; 86901; 87426; 93005; 93041; 94760; 96372; 99285; G0378

== ENCOUNTER → 2025-05-30 | Outpatient (REF) | payer MEDICARE, MEDICAID ==
[~2025-05-30] MED LIST changes: +BISA10EN PR; -CALCIUM ACETATE 667 MG GELCAP PO SCH; +HYDR25TA87 PO; +MECL-86 PO; +MIDO5TA PO
[2025-05-30 13:21] LABS: CALCIUM LEVEL 9.2 MG/DL (8.3-10.6); CARBON DIOXIDE LEVEL 32.0 MMOL/L (20-31); CHLORIDE LEVEL 92.0 MMOL/L (98-107); CREATININE FOR GFR 4.7 MG/DL (0.55-1.30); GLOMERULAR FILTRATION RATE 8.9 (>32); POTASSIUM SERUM 4.3 MMOL/L (3.5-5.1); SODIUM LEVEL 135.0 MMOL/L (136-145)
== END ==
LOC: SKLAB4 07:52
PROVIDERS: ATTEND Internal Medicine
DX: E87.5 Hyperkalemia (principal)